=== PATIENT | male | born 1965 | race Hispanic/Latino ===

== ENCOUNTER 2017-07-09 09:54 | Emergency (ER) ==
[~2017-07-09] VITALS: Ht 185.4 cm; Wt 68.9 kg
[2017-07-09] MEDS ORDERED: SODIUM CHLORIDE 0.9% 1000ML 1,000 ML IV STA (10:10)
[2017-07-09 11:37] LABS: BILIRUBIN,URINE NEGATIVE (NEGATIVE); KETONES,URINE NEGATIVE (NEGATIVE); LEUKOCYTE ESTERASE ,URINE NEGATIVE (NEGATIVE); NITRITE,URINE NEGATIVE (NEGATIVE); PROTEIN,URINE DIPSTICK NEGATIVE (NEGATIVE); URINE UROBILINOGEN 0.2 mg/dL (0.2 - 1)
[2017-07-09 11:46] LABS: COLOR,URINE YELLOW (YELLOW)
[2017-07-09 12:15] LABS: CLARITY,URINE CLEAR (CLEAR); EPITHELIAL CELLS,URINE RARE /LPF
== END 2017-07-09 12:42 | disposition left against medical advice (07) ==
LOC: EDSEX 09:54 → ER 09:54
DX: E11.65 Type 2 diabetes mellitus with hyperglycemia (principal); M79.672 Pain in left foot; M79.671 Pain in right foot; G89.29 Other chronic pain
CPT/HCPCS: 81001; 99282

== ENCOUNTER 2018-05-01 20:56 | Emergency (ER) | payer SELFPAY ==
[~2018-05-01] VITALS: Ht 185.4 cm; Wt 68.9 kg
--- OUTSIDE RECORDS SUMMARY | 2018-05-01 20:59 | XMS REPORT ---
[facility] Address Unknown Phone Unavailable Care Team Providers Care Voucher Examiner Name Role Phone Unavailable Unavailable Problems This patient has no known problems. Allergies, Adverse Reactions, Alerts This patient has no known allergies or adverse reactions. Medications This patient has no known medications. Encounters Start Date/Time End Date/Time Encounter Type Admission Type Attending [facility] Care Department Encounter ID 2018-12-22 00:00:00 2018-12-22 00:00:00 Outpatient [facility] [id number] 2018-07-15 00:00:00 2018-07-15 00:00:00 Outpatient [facility] [id number] 2018-05-12 00:00:00 2018-05-12 00:00:00 Outpatient [facility] [id number] 2018-05-11 00:00:00 2018-05-11 00:00:00 Outpatient [facility] [id number] 2018-04-28 10:12:36 2018-04-28 10:12:36 Outpatient [facility] [id number] 2018-04-27 13:57:57 2018-04-27 13:57:57 Outpatient [facility] [id number] 2018-04-14 00:00:00 2018-04-14 00:00:00 Outpatient [facility] [id number] 2018-04-12 00:00:00 2018-04-12 00:00:00 Outpatient [facility] [id number] 2018-04-07 00:00:00 2018-04-07 00:00:00 Outpatient [facility] [id number] 2018-04-07 00:00:00 2018-04-07 00:00:00 Outpatient [facility] [id number] 2018-04-06 00:00:00 2018-04-06 00:00:00 Outpatient [facility] [id number] 2018-04-05 19:53:05 2018-04-05 19:53:05 Emergency [facility] [id number] 2018-04-02 10:01:51 2018-04-02 10:01:51 Outpatient [facility] [id number] 2018-04-02 00:00:00 2018-04-02 00:00:00 Outpatient [facility] [id number] 2018-03-25 08:02:16 2018-03-25 08:02:16 Outpatient [facility] [id number] 2018-03-17 00:00:00 2018-03-17 00:00:00 Outpatient [facility] [id number] 2018-03-15 15:11:01 2018-03-15 15:11:01 Outpatient [facility] [id number] 2018-03-15 14:41:38 2018-03-15 14:41:38 Outpatient [facility] [id number] 2018-03-15 13:25:32 2018-03-15 13:25:32 Outpatient [facility] [id number] 2018-03-15 00:00:00 2018-03-15 00:00:00 Outpatient [facility] [id number] 2018-03-15 00:00:00 2018-03-15 00:00:00 Outpatient [facility] [id number] 2018-03-15 00:00:00 2018-03-15 00:00:00 Outpatient [facility] [id number] 2018-03-03 00:00:00 2018-03-03 00:00:00 Outpatient [facility] [id number] 2018-02-19 07:31:55 2018-02-19 07:31:55 Outpatient [facility] [id number] 2018-02-19 00:00:00 2018-02-19 00:00:00 Outpatient [facility] [id number] 2018-02-16 00:00:00 2018-02-16 00:00:00 Outpatient [facility] [id number] 2018-02-15 00:00:00 2018-02-15 00:00:00 Outpatient [facility] [id number] 2018-02-11 09:59:54 2018-02-11 09:59:54 Outpatient [facility] [id number] 2018-02-11 00:00:00 2018-02-11 00:00:00 Outpatient [facility] [id number] 2018-02-10 10:32:46 2018-02-10 10:32:46 Outpatient [facility] [id number] 2018-02-10 00:00:00 2018-02-10 00:00:00 Outpatient [facility] [id number] 2018-02-09 14:09:26 2018-02-09 14:09:26 Outpatient [facility] [id number] 2018-02-08 09:05:32 2018-02-08 09:05:32 Outpatient [facility] [id number] 2018-02-08 00:00:00 2018-02-08 00:00:00 Outpatient [facility] [id number] 2018-02-03 00:00:00 2018-02-03 00:00:00 Outpatient [facility] [id number] 2018-01-11 00:00:00 2018-01-11 00:00:00 Outpatient [facility] [id number] 2017-12-30 12:42:48 2017-12-30 12:42:48 Outpatient [facility] [id number] 2017-12-30 00:00:00 2017-12-30 00:00:00 Outpatient [facility] [id number] 2017-12-22 00:00:00 2017-12-22 00:00:00 Outpatient [facility] [id number] 2017-12-17 11:36:57 2017-12-17 11:36:57 Outpatient [facility] [id number] 2017-12-17 11:29:28 2017-12-17 11:29:28 Outpatient [facility] [id number] 2017-12-17 09:31:06 2017-12-17 09:31:06 Outpatient [facility] [id number]
--- NOTE | 2018-05-01 22:10 | Diagnostic Imaging Report ---
KNEE LEFT THREE VIEWS Comparison: None Clinical history: Fall Findings: Moderate tricompartmental degenerative changes. No acute fracture or dislocation. Incidental superior patellar enthesophyte. Impression: No acute bony abnormality Signed by: Dr Darlene Saavedra MD on 05/01/2018 10:07 PM
[2018-05-01 23:27] VITALS: BP 138/91
== END 2018-05-01 23:30 | disposition home or self-care (01) ==
LOC: ER 20:56
DX: S80.02XA Contusion of left knee, initial encounter (principal); W18.2XXA Fall in (into) shower or empty bathtub, initial encounter; Y93.E1 Activity, personal bathing and showering; Y92.002 Bathroom of unspecified non-institutional (private) residence as the place of occurrence of the external cause; E11.40 Type 2 diabetes mellitus with diabetic neuropathy, unspecified; M79.7 Fibromyalgia
CPT/HCPCS: 99283

== ENCOUNTER 2018-09-16 10:38 | Inpatient (IN) | payer MEDICAID ==
[~2018-09-16] VITALS: Ht 185.4 cm; Wt 70.8 kg
[2018-09-16] MEDS ORDERED: LIDOCAINE HCL 1% 2 ML AMP INJ ONE (11:15)
[2018-09-16] MEDS ORDERED: SODIUM CHLORIDE 0.9% 1000ML 1,000 ML IV SCH ×2 (11:15)
--- NOTE | 2018-09-16 11:23 | NUR ---
rec'd pt in rm 3 from the [facility] for right foot pain/swelling. placed on the monitor. v.s.s. rating pain 10/10
[2018-09-16] MEDS ORDERED: MORPHINE SULFATE 5 MG/ML VIAL IV ONE (11:45)
[2018-09-16] MEDS: PIPER-TAZ 3.375 GM 50 ML IV SCH ×2 (11:55→16:30)
[2018-09-16] MEDS ORDERED: MORPHINE SULFATE INJ 4 MG/ML INJ 1ML IV ONE (12:00)
[2018-09-16 12:02] LABS: BASOPHILS # (AUTO) 0.1 (0.0-0.1); BASOPHILS % 0.6 % (0.0-1.0); EOSINOPHILS # (AUTO) 0.4 (0.0-0.4); EOSINOPHILS % 3.6 % (0.0-6.0); HEMATOCRIT 41.9 % (38.2-49.6); HEMOGLOBIN 13.4 g/dL (14.0-18.0); LYMPHOCYTES # (AUTO) 1.4 (1.0-3.2); LYMPHOCYTES % 12.5 % (18.0-39.1); MEAN CORPUSCULAR HEMOGLOBIN 27.1 pg (28-32); MEAN CORPUSCULAR VOLUME 84.6 fL (81-99); MONOCYTES # (AUTO) 1.1 (0.2-0.8); MONOCYTES % 10.3 % (4.4-11.3); NEUTROPHILS % 72.6 % (38.7-80.0); PLATELET COUNT 249 x10e3/uL (140-360); RED BLOOD COUNT 4.95 x10e6/uL (4.3-5.7); RED CELL DISTRIBUTION WIDTH 12.8 % (11.7-14.4)
[2018-09-16 12:08] LABS: CLARITY,URINE CLEAR (CLEAR); COLOR,URINE STRAW (YELLOW)
[2018-09-16 12:09] LABS: AMPHETAMINES SCREEN,URINE NEGATIVE (NEGATIVE); BENZODIAZEPINES SCREEN,URINE NEGATIVE (NEGATIVE); BILIRUBIN,URINE NEGATIVE (NEGATIVE); KETONES,URINE NEGATIVE (NEGATIVE); LEUKOCYTE ESTERASE ,URINE NEGATIVE (NEGATIVE); NITRITE,URINE NEGATIVE (NEGATIVE); PHENCYCLIDINE SCREEN,URINE NEGATIVE (NEGATIVE); PROTEIN,URINE DIPSTICK NEGATIVE (NEGATIVE); URINE UROBILINOGEN 0.2 mg/dL (0.2 - 1)
[2018-09-16 12:12] LABS: INR 0.84
[2018-09-16 12:13] LABS: PARTIAL THROMBOPLASTIN TIME 28.6 seconds (23.8-35.5)
--- NOTE | 2018-09-16 12:16 | Diagnostic Imaging Report ---
Exam: Right foot radiographs-3 views Clinical History: Right second toe swelling, erythema, query osteomyelitis. Comparison: None. Findings: No evidence of acute fracture or malalignment. There is soft tissue edema within the second toe with soft tissue irregularity, possibly laceration, along the distal aspect. No radiographic evidence of underlying osteomyelitis. There is a hallux valgus deformity. There are mild degenerative changes of the first metatarsophalangeal joint. There is a plantar calcaneal spur. Impression: Right second toe edema without radiographic evidence of osteomyelitis. Soft tissue irregularity in the distal second toe may represent laceration, and can be correlated on exam. Signed by: Dr. Kristopher Berry MD on 09/16/2018 12:12 PM
[2018-09-16 12:21] LABS: EPITHELIAL CELLS,URINE FEW /LPF; WBC,URINE (MAN) 0-5 /HPF (0-5)
[2018-09-16 12:23] LABS: ALANINE AMINOTRANSFERASE 28 IU/L (0-55); ALBUMIN 3.4 g/dL (3.5-5.0); ALBUMIN/GLOBULIN RATIO 1.1 (0.8-2.0); ALKALINE PHOSPHATASE 160 IU/L (40-150); ANION GAP 12.6 mmol/L (8-16); BLOOD UREA NITROGEN 10 mg/dL (7-26); BUN/CREATININE RATIO 10 (6-25); CALCIUM 8.8 mg/dL (8.4-10.2); CARBON DIOXIDE 29 mmol/L (22-29); CHLORIDE 90 mmol/L (98-107); CREATININE, SERUM 1.03 mg/dL (0.72-1.25); EST GLOMERULAR FILTRATION RATE > 60 ML/MIN (60-); POTASSIUM 4.6 mmol/L (3.5-5.1); SODIUM 127 mmol/L (136-145)
[2018-09-16 12:31] LABS: GLUCOSE 708 mg/dL (74-118)
[2018-09-16] MEDS ORDERED: INSULIN REGULAR, HUMAN 100 UNIT/1 ML 3ML VIAL SQ NR (12:45)
[2018-09-16] MEDS ORDERED: INSULIN REGULAR, HUMAN 100 UNIT/1 ML 3ML VIAL IV NR (12:45)
--- NOTE | 2018-09-16 13:35 | NUR ---
dr. lexa quintana in to see pt
[2018-09-16] MEDS ORDERED: HUMALOG100 UNIT/1 SQ (14:04)
[2018-09-16] MEDS ORDERED: GABAPENTIN600 MG (14:04)
[2018-09-16] MEDS ORDERED: ULTRAM 50MG50 MG (14:04)
[2018-09-16] MEDS ORDERED: LEVEMIR100 UNIT/1 SQ (14:04)
[2018-09-16] MEDS ORDERED: TYLENOL # 31 EA (14:04)
[2018-09-16] MEDS ORDERED: DEXTROSE 50% SYRINGE 50 ML IV PRN (14:15)
[2018-09-16] MEDS ORDERED: MORPHINE SULFATE 2 MG/ML SYR 1ML IV PRN (14:15)
[2018-09-16] MEDS: VANCOMYCIN 1GM/NS 250 ML 250 ML IV SCH (14:43)
[2018-09-16 15:39] VITALS: BP 123/75
--- NOTE | 2018-09-16 16:00 | NUR ---
Received pt from ER at this time. Pt is axo4 and able to verbalize needs. Pt denies any pain at this time. no C/O of pain at thia time, pt able to make needs known, pt oriented to room and call light, bed in lowest position. bed rails up x2.
[2018-09-16] MEDS: SODIUM CHLORIDE 0.9% 1000ML 1,000 ML IV SCH (16:35)
[2018-09-16] MEDS: INSULIN LISPRO 100 UNIT/1 ML 3ML VIAL SQ SCH ×2 (16:35→21:00)
[2018-09-16] MEDS: MORPHINE SULFATE INJ 4 MG/ML INJ 1ML IV PRN (17:58)
[2018-09-16] MEDS: ONDANSETRON HCL INJ 2MG/ML 2ML 2 MG/ML VIAL IV PRN (17:58)
[2018-09-16 18:23] VITALS: BP 123/75
[2018-09-16] MEDS ORDERED: PIPER-TAZ 3.375 GM 50 ML IV SCH (19:00)
[2018-09-16 19:28] VITALS: BP 113/68
--- NOTE | 2018-09-16 19:47 | NUR ---
report given to oncoming nurse, for continued care
--- NOTE | 2018-09-16 19:54 | NUR ---
RECEIVED PT IN BED AOX3 .PT C/O DIARRHEA .RESPIRATIONS EVEN AND UNLABORED .CALL LIGHT WITH IN REACH .CONTINUE TO MONITOR
[2018-09-16 23:27] VITALS: BP 113/68
[2018-09-17] VITALS (7 sets, daily range): BP systolic 129–141; BP diastolic 75–85
[2018-09-17] MEDS: VANCOMYCIN 1GM/NS 250 ML 250 ML IV SCH ×2 (02:30→15:30)
[2018-09-17] MEDS: PIPER-TAZ 3.375 GM 50 ML IV SCH ×4 (05:45→18:37)
[2018-09-17] MEDS: SODIUM CHLORIDE 0.9% 1000ML 1,000 ML IV SCH ×3 (05:46→15:30)
--- NOTE | 2018-09-17 06:09 | NUR ---
PT RESTED DURING THE NIGHT AND DENIES PAIN.CALL LIGHT WITH IN REACH .CONTINUE TO MONITOR
--- NOTE | 2018-09-17 06:09 | NUR ---
PT RESTED DURING THE NIGHT AND DENIES PAIN.CALL LIGHT WITH IN REACH .CONTINUE TO MONITOR
[2018-09-17 06:17] LABS: BASOPHILS # (AUTO) 0.1 (0.0-0.1); BASOPHILS % 0.6 % (0.0-1.0); EOSINOPHILS # (AUTO) 0.4 (0.0-0.4); EOSINOPHILS % 4.9 % (0.0-6.0); HEMATOCRIT 39.8 % (38.2-49.6); HEMOGLOBIN 12.8 g/dL (14.0-18.0); LYMPHOCYTES # (AUTO) 1.8 (1.0-3.2); LYMPHOCYTES % 22.6 % (18.0-39.1); MEAN CORPUSCULAR HEMOGLOBIN 27.2 pg (28-32); MEAN CORPUSCULAR HGB CONC 32.2 g/dL (31-35); MEAN CORPUSCULAR VOLUME 84.5 fL (81-99); MONOCYTES # (AUTO) 0.7 (0.2-0.8); MONOCYTES % 9.4 % (4.4-11.3); NEUTROPHILS # (AUTO) 4.8 (2.1-6.9); PLATELET COUNT 233 x10e3/uL (140-360); RED BLOOD COUNT 4.71 x10e6/uL (4.3-5.7)
[2018-09-17 06:39] LABS: BLOOD UREA NITROGEN 8 mg/dL (7-26); BUN/CREATININE RATIO 10 (6-25); CALCIUM 8.4 mg/dL (8.4-10.2); CARBON DIOXIDE 28 mmol/L (22-29); CHLORIDE 98 mmol/L (98-107); CREATININE, SERUM 0.84 mg/dL (0.72-1.25); EST GLOMERULAR FILTRATION RATE > 60 ML/MIN (60-); GLUCOSE 370 mg/dL (74-118); SODIUM 133 mmol/L (136-145)
[2018-09-17] MEDS: ONDANSETRON HCL INJ 2MG/ML 2ML 2 MG/ML VIAL IV PRN (06:50)
[2018-09-17] MEDS: MORPHINE SULFATE INJ 4 MG/ML INJ 1ML IV PRN ×2 (06:50→20:00)
--- NOTE | 2018-09-17 07:32 | NUR ---
REPORT GIVEN TO THE ONCOMING NURSE
[2018-09-17] MEDS: INSULIN LISPRO 100 UNIT/1 ML 3ML VIAL SQ SCH ×4 (08:15→21:13)
--- NOTE | 2018-09-17 08:15 | NUR ---
Pt had blood sugar value of 330 this morning, per sliding scale pt is to receive 16units of insulin. Pt refused sliding scale orders and requested for just 6units of insulin. Pt stated he does not use sliding scale at home. 6units of Humalog administered to pt this morning.
--- NOTE | 2018-09-17 12:40 | Diagnostic Imaging Report ---
TECHNIQUE: Magnetic resonance imaging of the RIGHT foot (forefoot) was performed WITHOUT injected contrast. The exam is optimized to evaluate the second toe. HISTORY: Second toe, cellulitis, necrotic COMPARISON: Right foot radiographs September 16, 2018. DISCUSSION: Bone: The cortex of the tuft of the second distal phalanx is mildly indistinct. Mild adjacent bone marrow edema and subtle decreased fatty marrow signal of the tuft. No acute fracture. Joints: Severe hallux valgus deformity. No effusion. Soft Tissues: Regional soft tissue edema, most notably the second toe. IMPRESSION: 1. High probability of osteomyelitis involving the tuft of the second distal phalanx. 2. No soft tissue abscess. Signed by: Dr. Bruce Florentino D.O., M.M.M. on 09/17/2018 12:37 PM
[2018-09-17] MEDS ORDERED: BUPIVACAINE HCL 0.5% INJ 30 ML VIAL INJ ONE (12:48)
[2018-09-17] MEDS ORDERED: MUPIROCIN 2% OINT 22 GM TUBE ONE (12:48)
[2018-09-17] MEDS ORDERED: BACITRACIN 50,000 UNIT VIAL ONE (12:48)
[2018-09-17] MEDS ORDERED: DIPHENHYDRAMINE HCL INJ 50 MG/ML VIAL ONE (13:25)
--- NOTE | 2018-09-17 13:26 | NUR ---
GAVE PACKET OF INFORMATION WITH [employer]ITY [employer] FOR ASSISTANCE WITH LOW TO NO INCOME TO PATIENT. RESOURCES THAT PATIENT MAY BE ABLE TO FOLLOW UP UPON DISCHARGE. PT EDUCATED ON EACH RESOURCE AND UNDERSTANDING HOW TO FOLLOW UP TO SEE IF QUALIFIED FOR EACH RESOURCE.
[2018-09-17] MEDS ORDERED: FENTANYL CITRATE/PF 100MCG/2 ML INJ ONE ×2 (13:43→14:30)
--- NOTE | 2018-09-17 14:07 | NUR ---
pt arrived back from surgery of R 2nd toe amputation. No c/o pain at this time, dressing over site.
[2018-09-17] MEDS ORDERED: MIDAZOLAM HCL 2 MG/2 ML VIAL ONE (14:30)
[2018-09-17 14:32] LABS: FREE T4 (FREE THYROXINE) 1.06 ng/dL (0.9-1.8); THYROID STIMULATING HORMONE 1.267 uIU/mL (0.350-4.940)
--- NOTE | 2018-09-17 15:59 | NUR ---
WOUND CARE CONSULTATION - INITIAL EVAL Patient admitted from home to ER for foot swelling, increased pain of foot with nail loss. Per ER Note, 2nd toe dorsal aspect streaking redness to lower leg. DX: Cellulitis of Right Foot with DFU to 2nd toe. X-ray- Right Foot - No Osteo, No FX Wound Culture Done During Surgery Today- Results Pending Patient Visit: - Dr. Gray/ Dr. Carson managing care of foot wound. - Noted S/P Amputation of 2nd Digit Today by Dr Gray.09/17/18 - Discussed treatment plan with Dr. Gray. DPM Dressing to remain in place until Thursday. - Surgical dressing in place. CDI. - Phil Score 19 - Alternating Pressure Air Mattress in Place - Conservative PUP Active - No Pressure Ulcers Noted. - Unable to assess wound at this time. Will follow back upon request. Thank you for consulting with Wound Care. Addendum: 09/17/18 at 1609 by Jim Walsh RN Amended: Links added.
--- NOTE | 2018-09-17 17:31 | Consultation ---
DATE OF CONSULTATION: 09/17/2018 REASON FOR CONSULTATION: Right foot wound. HISTORY OF PRESENTING ILLNESS: This is a 53-year-old male with past medical history of type 2 diabetes, peripheral neuropathy, hypertension, anxiety, depression, who was admitted through the emergency room yesterday for a worsening infection to his right 2nd toe. The patient relates that his nail fell off his right 2nd toe and there was increased redness, swelling, drainage from the area as well as swelling to the ankle and redness going up his leg. The patient does relate to moderate pain to the area. He relates that he is uninsured and does not have his blood sugars under control, he does not take his diabetic medications regularly. Currently denies nausea, vomiting, fever, chills, chest pain, or shortness of breath. PAST MEDICAL HISTORY: 1. Type 2 diabetes with peripheral neuropathy. 2. Hypertension. 3. Anxiety. 4. Depression. 5. Fibromyalgia. MEDICATIONS: Per the chart. ALLERGIES: NO KNOWN DRUG ALLERGIES. PAST SURGICAL HISTORY: Right wrist surgery, right knee surgery. SOCIAL HISTORY: The patient currently denies smoking, however, does chew tobacco. Occasional alcohol. Denies any illicit drug usage. REVIEW OF SYSTEMS: The patient currently denies nausea, vomiting, fever, chills, chest pain, or shortness of breath. PHYSICAL EXAMINATION: GENERAL: Alert and oriented x3, in no apparent distress. VITAL SIGNS: Today temperature is 96.3, heart rate 98, respiratory rate 18, blood pressure 132/83, pulse ox is 96% on room air. PROBLEM FOCUSED LOWER EXTREMITY PHYSICAL EXAM: VASCULAR: Dorsalis pedis and posterior tibial pulses are faintly palpable. Capillary refill time is less than 3 seconds to all digits aside from the right 2nd digit. Erythema, edema, and warmth is noted from the right distal 2nd digit to the level of the metatarsophalangeal joint. There is ascending lymphangitis to the level of the ankle and midcalf. Foot is warm to the touch extending to the level of the ankle. NEUROLOGICAL: Sensation is absent to light touch bilateral. MUSCULOSKELETAL: Pain on palpation to the right 2nd digit. DERMATOLOGICAL: Right 2nd digit is erythematous, edematous, and warm greater than 2 cm to the level of the metatarsophalangeal joint with ascending lymphangitis at the level of the midcalf. The nail had been avulsed and there is a draining ulceration to the distal tip of the 2nd digit with bone exposed. LABS: White blood cell count is 7.8, hemoglobin 12.8, hematocrit 39.8, platelet count is 233. Sodium 133, potassium 4.0, chloride 98, CO2 of 28, BUN 8, creatinine 0.84, glucose 370. Urine drug screen is negative. X-RAYS: Questionable osteolytic changes to the distal aspect of the distal phalanx of the right 2nd digit. ASSESSMENT: 1. Right 2nd digit ulcer with probable osteomyelitis. 2. Right foot cellulitis. 3. Right foot ascending lymphangitis. 4. Type 2 diabetes with peripheral neuropathy. 5. Hypertension. 6. Anxiety. 7. Depression. 8. Fibromyalgia. PLAN: The patient was seen and evaluated. Discussed condition, x-ray findings, and clinical findings with the patient in detail. Discussed with the patient the right 2nd digit is approximately one and half to two times the digit next to it with moderate amount of erythema and edema extending to the level of the metatarsophalangeal joint as well as purulent drainage with bone exposure. The patient does have clinical osteomyelitis. I will order a stat MRI with a stat read to evaluate for osteomyelitis. Discussed with the patient need for right 2nd digit amputation. The patient agrees. The patient has been n.p.o. since yesterday, has not had any breakfast, we will continue n.p.o. status. We will discuss with the OR about possible surgical procedure today. Continue IV vancomycin and Zosyn until intraoperative cultures are received. The Podiatry service will continue to monitor as an inpatient. ALONDRA Carter/YVROSE /[id number]
[2018-09-17] MEDS ORDERED: PROPOFOL IV EMULSION 10 MG/ML 20 ML VIAL ONE (17:50)
[2018-09-17] MEDS ORDERED: LIDOCAINE HCL 2% LOCAL INJ 5 ML SDV VIAL INJ ONE (17:50)
--- NOTE | 2018-09-17 19:30 | NUR ---
Bedside rounds completed with morning nurse. Pt alert to name. Lying in bed 45 degrees. Pt c/o 9/10 throbbing pain to right foot. Drsg to right foot dry and intact, elevated right foot. Informed Pt will receive pain medication as ordered. Call ahuja within reach. Bed low and locked. Will continue to monitor.
--- NOTE | 2018-09-17 20:30 | NUR ---
Admin prn morphine for 9/10 throbbing pain to right foot.
[2018-09-17] MEDS ORDERED: INSULIN GLARGINE 100 UNITS/ML VIAL SQ SCH (21:00)
--- NOTE | 2018-09-17 21:07 | Consultation ---
DATE OF CONSULTATION: 09/17/2018 Endocrine Consultation This is the patient of Dr. Willis. Thank you very much for referring this patient. HISTORY OF PRESENT ILLNESS: This 53-year-old white gentleman, who is referred to me for evaluation of uncontrolled diabetes mellitus. 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 He came to the hospital because of the cellulitis of the right foot and osteomyelitis of the second toe. The patient takes a combination of insulin at home, 20 of Lantus at bedtime and 7 of Humalog with each meal. At the time of his admission, his blood sugar was 700. His anion gap was within the range. The patient chews tobacco. He also has history of mild hypertension. PHYSICAL EXAMINATION: GENERAL: Today, the patient is alert, awake, little bit apprehensive. Clinically, he is euthyroid. VITAL SIGNS: His heart rate is around 78, blood pressure 130/80 mmHg. HEENT: Essentially unremarkable. Thyroid is palpable. CHEST: Bilateral vesicular breathing. EXTREMITIES: The patient has evidence of diabetic sensory motor neuropathy in both lower extremities and cellulitis of the right foot. CLINICAL IMPRESSION: Diabetes mellitus type 1 uncontrolled with complications, cellulitis of the right foot with osteomyelitis of the 2nd toe. PLAN: The plan at this time is to put him on the combination of the Humalog and the Lantus insulin 3 times a day in the sliding scale. We will also do hemoglobin A1c and thyroid function test. Thanks for referring this patient. I will be following this patient with you. MD JEANINE Vaughan/ELPIDIOL /[id number]
--- NOTE | 2018-09-17 21:27 | NUR ---
Spoke with Dr. Lizama regarding continuing home medication gabapentin for neuropathy. Pt c/o tingling to bilateral feet. Ordered to continue home dosage gabapentin 600mg PO every 8 hours.
[2018-09-17] MEDS ORDERED: NON-FORMULARY MEDICATION (Gabapentin 600 MG) SCH (22:00)
--- NOTE | 2018-09-17 22:47 | Operative Report ---
DATE OF PROCEDURE: 09/17/2018 SURGEON: Cole Gray DPM PREOPERATIVE DIAGNOSIS: Right 2nd digit osteomyelitis. POSTOPERATIVE DIAGNOSIS: Right 2nd digit osteomyelitis. PLANNED PROCEDURE: Right 2nd digit amputation. ANESTHESIA: General with a postoperative block consisting of 10 mL of 0.5% Marcaine plain. HEMOSTASIS: Pneumatic ankle tourniquet set at 250 mmHg for a total time of approximately 10 minutes. MATERIALS: 3-0 nylon. ESTIMATED BLOOD LOSS: Less than 10 mL. PATHOLOGY: Anaerobic and aerobic cultures as well as gross specimen, right 2nd digit. DESCRIPTION OF PROCEDURE: The patient was seen in the preoperative waiting room, where the correct procedure and side was identified. The patient was brought to the operating room, placed on the operating table in the supine position. General anesthesia was initiated. At this time, a well-padded pneumatic tourniquet was placed about the patient's right ankle. The right foot, ankle, and leg were then scrubbed, prepped, and draped in the usual aseptic manner. The right foot, ankle and leg were exsanguinated with gravity and the pneumatic ankle tourniquet was inflated to 250 mmHg for a total time of approximately 10 minutes. Attention was directed to the distal aspect of the patient's right 2nd digit, where the nail had previously been avulsed and there was purulent drainage with bone exposed. Erythema and edema were extending down to the level of the 2nd metatarsophalangeal joint. The decision was made to proceed with the right 2nd digit amputation. Utilizing a #15 blade, an incision was made to the distal tip of the patient's 2nd digit to allow for drainage of the abscess. Wound cultures were taken. Next, utilizing a clean #15 blade, two large converging semi-elliptical incisions were made over the metatarsophalangeal joint extending dorsally and plantarly encompassing the joint. The incision was deepened to the level of bone. At this point, a 2nd metatarsophalangeal joint was easily identified. The digit was grasped distally with a towel clamp and disarticulated from the foot and passed off to the back table to be sent for gross specimen. Next, the wound was flushed copiously with sterile saline mixed with bacitracin. The incision site was then prepped for closure by removing all dog-ears and debulking fat. The incision site was then reapproximated utilizing simple interrupted sutures with 3-0 nylon. The incision site was then dressed with Adaptic, Betadine-soaked 4x4s, Kerlix, Desean wrap, and a postop shoe. The patient tolerated the procedure and anesthesia well. The patient was transferred to the postop recovery room with vital signs stable and vascular status intact. The patient was monitored there for a short period of time before being readmitted to the floor for postoperative monitoring, pain control, and IV antibiotics. The plan will be to have the patient for 1-2 days on IV antibiotics until cultures received and may be discharged on p.o. antibiotics. The Podiatry Service will continue to monitor as an inpatient. ALONDRA Carter/MODL /[id number]
[2018-09-17] MEDS: GABAPENTIN 300 MG CAP PO SCH (22:49)
[2018-09-18] VITALS (8 sets, daily range): BP systolic 110–129; BP diastolic 72–81
[2018-09-18] MEDS: PIPER-TAZ 3.375 GM 50 ML IV SCH ×3 (00:26→13:44)
[2018-09-18] MEDS: MORPHINE SULFATE INJ 4 MG/ML INJ 1ML IV PRN ×5 (00:40→23:10)
[2018-09-18] MEDS: VANCOMYCIN 1GM/NS 250 ML 250 ML IV SCH ×2 (03:30→18:22)
[2018-09-18] MEDS: SODIUM CHLORIDE 0.9% 1000ML 1,000 ML IV SCH ×2 (04:04→08:38)
[2018-09-18] MEDS: GABAPENTIN 300 MG CAP PO SCH ×3 (05:08→22:00)
[2018-09-18] MEDS: INSULIN LISPRO 100 UNIT/1 ML 3ML VIAL SQ SCH ×7 (07:30→22:00)
[2018-09-18] MEDS: ONDANSETRON HCL INJ 2MG/ML 2ML 2 MG/ML VIAL IV PRN ×2 (10:17→18:45)
--- NOTE | 2018-09-18 15:55 | NUR ---
Nurse informed physician regarding pt's blood sugar and that pt does not want to follow a sliding scale or be administered insulin based off on what physician has ordered. Physician did not address matter, informed nurse to just do what the pt is asking and document.
--- NOTE | 2018-09-18 19:00 | NUR ---
Rounds completed with morning nurse. Pt alert to name, sitting in w/c. Denies pain at this time, medicated at 1830. Drsg to right foot dry and intact. Family at bedside. Call ahuja within reach. Will continue to monitor.
[2018-09-18] MEDS ORDERED: INSULIN GLARGINE 100 UNITS/ML VIAL SQ SCH (21:00)
[2018-09-19 00:15] VITALS: BP 129/80
[2018-09-19] MEDS: PIPER-TAZ 3.375 GM 50 ML IV SCH ×4 (00:23→11:55)
[2018-09-19] MEDS: VANCOMYCIN 1GM/NS 250 ML 250 ML IV SCH (02:53)
[2018-09-19] MEDS: MORPHINE SULFATE INJ 4 MG/ML INJ 1ML IV PRN ×2 (03:00→11:03)
[2018-09-19 04:43] VITALS: BP 118/55
[2018-09-19 04:46] VITALS: BP 116/60
[2018-09-19 05:56] LABS: BASOPHILS # (AUTO) 0.1 (0.0-0.1); BASOPHILS % 0.9 % (0.0-1.0); EOSINOPHILS # (AUTO) 0.5 (0.0-0.4); EOSINOPHILS % 9.1 % (0.0-6.0); HEMATOCRIT 41.2 % (38.2-49.6); HEMOGLOBIN 12.7 g/dL (14.0-18.0); LYMPHOCYTES # (AUTO) 1.9 (1.0-3.2); LYMPHOCYTES % 32.9 % (18.0-39.1); MEAN CORPUSCULAR HEMOGLOBIN 26.4 pg (28-32); MEAN CORPUSCULAR HGB CONC 30.8 g/dL (31-35); MEAN CORPUSCULAR VOLUME 85.7 fL (81-99); MONOCYTES # (AUTO) 0.4 (0.2-0.8); MONOCYTES % 7.7 % (4.4-11.3); NEUTROPHILS # (AUTO) 2.8 (2.1-6.9); PLATELET COUNT 297 x10e3/uL (140-360); RED BLOOD COUNT 4.81 x10e6/uL (4.3-5.7); RED CELL DISTRIBUTION WIDTH 13.1 % (11.7-14.4)
[2018-09-19 06:19] LABS: ALANINE AMINOTRANSFERASE 20 IU/L (0-55); ALBUMIN 2.7 g/dL (3.5-5.0); ALBUMIN/GLOBULIN RATIO 0.8 (0.8-2.0); ALKALINE PHOSPHATASE 102 IU/L (40-150); BLOOD UREA NITROGEN 7 mg/dL (7-26); BUN/CREATININE RATIO 8 (6-25); CALCIUM 8.4 mg/dL (8.4-10.2); CARBON DIOXIDE 29 mmol/L (22-29); CHLORIDE 99 mmol/L (98-107); CREATININE, SERUM 0.84 mg/dL (0.72-1.25); EST GLOMERULAR FILTRATION RATE > 60 ML/MIN (60-); GLUCOSE 355 mg/dL (74-118); SODIUM 135 mmol/L (136-145)
[2018-09-19] MEDS: GABAPENTIN 300 MG CAP PO SCH (06:23)
[2018-09-19] MEDS: INSULIN LISPRO 100 UNIT/1 ML 3ML VIAL SQ SCH ×2 (07:30→09:21)
[2018-09-19 08:00] VITALS: BP 125/75
[2018-09-19 09:14] VITALS: BP 125/75
[2018-09-19] MEDS: ONDANSETRON HCL INJ 2MG/ML 2ML 2 MG/ML VIAL IV PRN (11:03)
[2018-09-19 12:00] VITALS: BP 103/68
[2018-09-19] MEDS ORDERED: CIPRO500 MG PO (13:21)
--- NOTE | 2018-09-19 16:05 | NUR ---
Visit made by the Spiritual Care Department Pastoral Visitor, Risa Hicks. PV provided pastoral presence, hospitality, and supportive listening. Pastoral Visitor informed pt/family of the scope of [employer] and availability. TOLU STEWARD Medication Aide Spiritual Care Department O: [phone] Pager: [phone] ([phone] number calling from)
--- NOTE | 2018-09-20 11:40 | Discharge Summary ---
ADMIT DIAGNOSES: 1. Right diabetic foot ulcer (2nd digit) with probable osteomyelitis. 2. Right foot cellulitis. 3. Type 2 diabetes mellitus with peripheral neuropathy. 4. Hypertensive heart disease. DISCHARGE DIAGNOSES: 1. Status post right 2nd toe amputation. 2. Right 2nd toe osteomyelitis. 3. Right foot cellulitis, resolving. 4. Staphylococcus aureus infected right diabetic foot wound. 5. Type 2 diabetes mellitus with diabetic peripheral neuropathy. 6. Hypertensive heart disease. HOSPITAL COURSE: This is a 53-year-old white man, who was initially admitted to [facility] with a diagnosis of right-sided diabetic foot ulcer, specifically right 2nd toe. On admission, it was felt that he most likely had osteomyelitis. He is also found to have surrounding right foot cellulitis with ascending lymphangitis. The patient improved clinically with intravenous Zosyn and vancomycin, which he tolerated quite well. The patient was seen by orthopedic surgeon, namely, Dr. Cole Gray, who performed successful right 2nd toe amputation because of the right 2nd digit osteomyelitis. During this hospitalization, he underwent a right foot MRI that revealed a high probability osteomyelitis of the right 2nd distal toe. The patient's hospitalization was unremarkable. During this hospitalization, wound cultures taken during the surgery revealed presence of Staphylococcus aureus and Streptococcus species. The sensitivities to the Staphylococcus aureus were available on discharge. The strain of Staphylococcus aureus was found to be sensitive to oral ciprofloxacin. The minimal inhibitory concentration was less than 1 with ciprofloxacin. PATIENT'S CONDITION ON DISCHARGE: Stable. DISCHARGE MEDICATIONS: 1. Ciprofloxacin 500 mg p.o. b.i.d. for 14 days. 2. Gabapentin 600 mg t.i.d. 3. Tylenol No. 3 one every 12 hours p.r.n. pain. 4. Levemir insulin 20 units subcutaneously twice a day. 5. Humalog insulin 7 units subcutaneously t.i.d. with meals. 6. Tramadol 50 mg every 8 hours p.r.n. moderate pain. FOLLOWUP INSTRUCTIONS: 1. The patient is instructed to follow up with Dr. Cole Gray, his grants assistant on Monday, September 24, 2018. 2. The patient is instructed to follow up with his primary care physician at [facility] within 7 to 10 days. Aram E Orahood, MD MEO/ELPIDIOL /[id number] cc: Cole Gray DPM
== END 2018-09-19 14:30 | disposition home or self-care (01) | DRG 617 ==
LOC: ER 10:38 → ERHOLD 14:54 → MED/SURG3 15:11
PROC: 0Y6R0Z3 Detachment at Right 2nd Toe, Low, Open Approach (ICD-10-PCS; principal; 2018-09-17 12:48)
DX: E11.69 Type 2 diabetes mellitus with other specified complication (principal); L03.115 Cellulitis of right lower limb; M86.8X7 Other osteomyelitis, ankle and foot; E11.621 Type 2 diabetes mellitus with foot ulcer; L97.514 Non-pressure chronic ulcer of other part of right foot with necrosis of bone; Z79.4 Long term (current) use of insulin; E11.40 Type 2 diabetes mellitus with diabetic neuropathy, unspecified; B95.62 Methicillin resistant Staphylococcus aureus infection as the cause of diseases classified elsewhere; F41.9 Anxiety disorder, unspecified; F32.9 Major depressive disorder, single episode, unspecified; Z59.8 Other problems related to housing and economic circumstances; M79.7 Fibromyalgia; E11.42 Type 2 diabetes mellitus with diabetic polyneuropathy; E11.65 Type 2 diabetes mellitus with hyperglycemia; F17.220 Nicotine dependence, chewing tobacco, uncomplicated
CPT/HCPCS: 36415; 80048; 80053; 80202; 80307; 81001; 82948; 83036; 83605; 83735; 84439; 84443; 85025; 85610; 85730; 87040; 87071; 87075; 87186; 87205; 88304; 88311; 99284; J1200; J1815; J2001; J2250; J2270; J2405; J2543; J3370; J7030

== ENCOUNTER 2018-11-07 12:44 | Emergency (ER) | payer SELFPAY ==
[~2018-11-07] VITALS: Ht 185.4 cm; Wt 70.8 kg
[~2018-11-07 12:44] MED LIST: CIPRO500 MG PO; GABAPENTIN600 MG; HUMALOG100 UNIT/1 SQ; LEVEMIR100 UNIT/1 SQ; TYLENOL # 31 EA; ULTRAM 50MG50 MG
== END 2018-11-07 13:17 | disposition home or self-care (01) ==
LOC: ER 12:44
DX: R21 Rash and other nonspecific skin eruption (principal); L50.1 Idiopathic urticaria; I10 Essential (primary) hypertension; E11.9 Type 2 diabetes mellitus without complications; F41.9 Anxiety disorder, unspecified; F32.9 Major depressive disorder, single episode, unspecified
CPT/HCPCS: 99283

== ENCOUNTER 2019-06-15 18:32 | Emergency (ER) | payer MEDICARE, OTHER ==
[~2019-06-15] VITALS: Ht 185.4 cm; Wt 70.8 kg
[2019-06-15] MEDS ORDERED: PIPER-TAZ 3.375 GM 50 ML IV ONE (18:51)
[2019-06-15] MEDS ORDERED: SODIUM CHLORIDE 0.9% 1000ML 1,000 ML IV STA (18:51)
[2019-06-15] MEDS ORDERED: ACETAMINOPHEN 325 MG TAB PO ONE (19:00)
[2019-06-15 19:17] LABS: BASOPHILS # (AUTO) 0.1 (0.0-0.1); BASOPHILS % 0.6 % (0.0-1.0); EOSINOPHILS # (AUTO) 0.5 (0.0-0.4); EOSINOPHILS % 5.7 % (0.0-6.0); HEMATOCRIT 42.5 % (38.2-49.6); HEMOGLOBIN 13.6 g/dL (14.0-18.0); LYMPHOCYTES # (AUTO) 1.8 (1.0-3.2); LYMPHOCYTES % 22.2 % (18.0-39.1); MEAN CORPUSCULAR HEMOGLOBIN 27.1 pg (28-32); MEAN CORPUSCULAR VOLUME 84.8 fL (81-99); MONOCYTES # (AUTO) 0.6 (0.2-0.8); MONOCYTES % 7.7 % (4.4-11.3); NEUTROPHILS # (AUTO) 5.2 (2.1-6.9); NEUTROPHILS % 63.6 % (38.7-80.0); PLATELET COUNT 234 x10e3/uL (140-360); RED BLOOD COUNT 5.01 x10e6/uL (4.3-5.7); RED CELL DISTRIBUTION WIDTH 12.8 % (11.7-14.4)
[2019-06-15 19:38] LABS: ALBUMIN 3.6 g/dL (3.5-5.0); ALBUMIN/GLOBULIN RATIO 1.3 (0.8-2.0); ANION GAP 15.5 mmol/L (8-16); CALCIUM 9.4 mg/dL (8.4-10.2); CREATININE, SERUM 1.3 mg/dL (0.72-1.25); POTASSIUM 3.5 mmol/L (3.5-5.1)
[2019-06-15] MEDS ORDERED: VANCOMYCIN 1GM/NS 250 ML 250 ML IV ONE (20:00)
--- NOTE | 2019-06-15 20:06 | Diagnostic Imaging Report ---
Exam: Left elbow, 3 views History: Swollen elbow, left elbow pain, no history of trauma Comparison: None. Findings: There is normal bone mineralization. No acute, displaced fracture or dislocation. Moderate degenerative changes in the elbow joint, with joint space narrowing and osteophytosis. No lytic or blastic lesions. No abnormal soft tissue calcification or soft tissue defect. No soft tissue swelling. Impression: 1. No acute abnormalities. Moderate degenerative changes in the elbow joint. Signed by: Dr. Giles Mccoy M.D. on 06/15/2019 8:02 PM
[2019-06-15] MEDS ORDERED: INSULIN REGULAR, HUMAN 100 UNIT/1 ML 3ML VIAL SQ ONE (20:15)
[2019-06-15 21:02] VITALS: BP 119/75
--- OUTSIDE RECORDS SUMMARY | 2019-06-24 11:09 | XMS REPORT | Continuity of Care Document ---
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 Medications No medication information available. Social History No social history. Hospital Discharge Instructions No hospital discharge instructions. Plan of Care Discharge Date 02/11/19 Disposition HOME/SELF CARE Prescriptions See Medications Section Functional Status No functional status results. Allergies, Adverse Reactions, Alerts No allergy information available. Immunizations No Known History of Immunizations. Vital Signs No Known Vital Signs Results. Results Laboratory Results Test Name Result Units Flags Reference Collection Date/Time Result Date/Time Comments Glucose (Fingerstick) 209 mg/dL H 65-99 02/11/19 3:27am 02/11/19 3:30am Uric Acid 2.6 mg/dL L 4.8-8.7 02/11/19 0:00am 02/11/19 2:13am Urine Color YELLOW YELLOW 02/10/19 11:12pm 02/10/19 11:26pm Urine Appearance CLEAR CLEAR 02/10/19 11:12pm 02/10/19 11:26pm Urine Glucose >=1000 mg/dL A NEGATIVE 02/10/19 11:12pm 02/10/19 11:26pm Urine Bilirubin NEGATIVE NEGATIVE 02/10/19 11:12pm 02/10/19 11:26pm Urine Ketones NEGATIVE NEGATIVE 02/10/19 11:12pm 02/10/19 11:26pm Urine Specific Joiner <=1.005 1.002-1.030 02/10/19 11:12pm 02/10/19 11:26pm Urine Blood NEGATIVE NEGATIVE 02/10/19 11:12pm 02/10/19 11:26pm Urine pH 6.0 4.5-8.0 02/10/19 11:12pm 02/10/19 11:26pm Urine Protein NEGATIVE mg/dL NEGATIVE 02/10/19 11:12pm 02/10/19 11:26pm Urine Urobilinogen 0.2 E.U./dL 0.2 02/10/19 11:12pm 02/10/19 11:26pm Urine Nitrite NEGATIVE NEGATIVE 02/10/19 11:12pm 02/10/19 11:26pm Urine Leukocyte Esterase NEGATIVE NEGATIVE 02/10/19 11:12pm 02/10/19 11:26pm Urine Microscopic Indicated NO NO 02/10/19 11:12pm 02/10/19 11:26pm White Blood Count 6.6 K/uL 4.8-10.8 02/10/19 11:10pm 02/10/19 11:28pm Red Blood Count 4.66 M/uL L 4.70-6.00 02/10/19 11:10pm 02/10/19 11:28pm Hemoglobin 12.8 g/dL L 13.5-17.5 02/10/19 11:10pm 02/10/19 11:28pm Hematocrit 39.5 % L 42.0-52.0 02/10/19 11:10pm 02/10/19 11:28pm Mean Corpuscular Volume 84.8 fl 80.0-100.0 02/10/19 11:10pm 02/10/19 11:28pm Mean Corpuscular Hemoglobin 27.4 pg 27.0-31.0 02/10/19 11:10pm 02/10/19 11:28pm Mean Corpuscular Hgb Concent Diff 32.3 g/dL 32.0-36.0 02/10/19 11:10pm 02/10/19 11:28pm Red Cell Distribution Width 14.0 % 11.5-14.5 02/10/19 11:10pm 02/10/19 11:28pm Platelet Count 256 K/uL 130-400 02/10/19 11:10pm 02/10/19 11:28pm Mean Platelet Volume 8.0 fl 7.4-10.4 02/10/19 11:10pm 02/10/19 11:28pm Granulocytes (%) 47.1 % L 50.0-75.0 02/10/19 11:10pm 02/10/19 11:28pm Lymphocytes % 31.9 % 20.0-40.0 02/10/19 11:10pm 02/10/19 11:28pm Monocytes % 8.0 % 0.0-15.0 02/10/19 11:10pm 02/10/19 11:28pm Eosinophils % 11.1 % H 0.0-10.0 02/10/19 11:10pm 02/10/19 11:28pm Basophils % 1.9 % 0.0-2.0 02/10/19 11:10pm 02/10/19 11:28pm Granulocytes # 3.1 K/uL 1.8-6.4 02/10/19 11:10pm 02/10/19 11:28pm Lymphocytes # 2.1 K/uL 1.2-3.6 02/10/19 11:10pm 02/10/19 11:28pm Monocytes # 0.5 K/uL 0.3-0.9 02/10/19 11:10pm 02/10/19 11:28pm Eosinophils # 0.7 K/UL H 0.0-0.5 02/10/19 11:10pm 02/10/19 11:28pm Basophils # 0.1 K/UL 0.0-0.2 02/10/19 11:10pm 02/10/19 11:28pm Manual Differential NO 02/10/19 11:10pm 02/10/19 11:28pm Sodium Level 129 mmol/L L 135-144 02/10/19 11:10pm 02/10/19 11:44pm Potassium Level 3.1 mmol/L L 3.5-5.1 02/10/19 11:10pm 02/10/19 11:44pm Chloride Level 93 mmol/L L 101-111 02/10/19 11:10pm 02/10/19 11:44pm Carbon Dioxide Level 27 mmol/L 22-32 02/10/19 11:10pm 02/10/19 11:44pm Anion Gap 12.1 mmol/L 10-20 02/10/19 11:10pm 02/10/19 11:44pm Glucose Level 600 mg/dL CH 65-99 02/10/19 11:10pm 02/10/19 11:44pm Prediabetes 100 to 125 mg/dl Diabetes 126 mg/dl or higher Prediabetes refers to individuals with plasma glucose levels intermediate between those considered normal and those considered diabetic and is also referred to as impaired glucose tolerance (IGT) or impaired fasting glucose (IFG). Blood Urea Nitrogen 8 mg/dL 8-02/10/19 11:10pm 02/10/19 11:44pm Creatinine 0.9 mg/dL 0.61-1.24 02/10/19 11:10pm 02/10/19 11:44pm EGFR Note 119.0 59.3-175.8 02/10/19 11:10pm 02/10/19 11:44pm eGFR (Estimated Glomerular Filtration Rate) eGFR calculation value obtained using the [facility] Quadratic (MCQ) equation. The reportable reference range is recommended to be greater than 60 ml/min/1.73m. This is an estimation of the patient's GFR and clinical correlation is recommended. This eGFR calculation does not account for race. This result may differ from other equations available. Calcium Level 8.6 mg/dL L 8.9-10.3 02/10/19 11:10pm 02/10/19 11:44pm Phosphorus Level 3.4 mg/dL 2.5-4.6 02/10/19 11:10pm 02/10/19 11:44pm Magnesium Level 1.8 mg/dL 1.8-2.5 02/10/19 11:10pm 02/10/19 11:44pm Albumin 3.3 g/dL L 3.5-5.0 02/10/19 11:10pm 02/10/19 11:44pm Total Bilirubin 0.2 mg/dL 0.2-1.2 02/10/19 11:10pm 02/10/19 11:44pm Alkaline Phosphatase 90 IU/L 32-91 02/10/19 11:10pm 02/10/19 11:44pm Total Protein 5.8 g/dL L 6.5-8.1 02/10/19 11:10pm 02/10/19 11:44pm Alanine Aminotransferase (ALT/SGPT) 25 IU/L 7-55 02/10/19 11:10pm 02/10/19 11:44pm Aspartate Amino Transf (AST/SGOT) 25 IU/L 15-41 02/10/19 11:10pm 02/10/19 11:44pm Globulin 2.5 g/dL 2.3-3.5 02/10/19 11:10pm 02/10/19 11:44pm Albumin/Globulin Ratio 1.3 1.2-2.2 02/10/19 11:10pm 02/10/19 11:44pm Creatine Kinase 67 IU/L 49-397 02/10/19 11:10pm 02/10/19 11:44pm Creatine Kinase MB 2.24 ng/ML 0.6-6.3 02/10/19 11:10pm 02/10/19 11:48pm Troponin I < 0.01 ng/mL 0.00-0.03 02/10/19 11:10pm 02/10/19 11:44pm Troponin I-Interpretation Reference : <0.03 ng/mL NEGATIVE 0.04 - 0.49 ng/mL EQUIVOCAL =OR > 0.5 ng/mL CONSISTENT WITH ACUTE MYOCARDIAL INJURY 98% of confirmed AMI patients will have at least one value in a set or serial specimens >0.50 ng/ml. 99% of normals are between 0.0 - 0.10 ng/ml. Serial samples on a patient that are all <0.10 ng/ml effectively rules out AMI. Persistently increased troponin I values that are above the upper limit of normal but below the threshold for AMI indicate mycardial injury but not necessarily an ischemic mechanism of injury. Troponin Important Points 1. Troponin is specific for myocardial injury but not for AMI. Elevated troponin levels above the upper limit of normal but below the AMI cutoff may be present in cardiac injury other then AMI and represent some degree of risk. 2. Elevated troponin levels inconsistent with patient history or clinical condition should be considered a sign to investigate for other cardiac conditions. 3. Serial sampling is critical for accurate diagnosis. Myoglobin 14 ug/mL L 17.4-106.0 02/10/19 11:10pm 02/10/19 11:47pm B-Type Natriuretic Peptide 88 pg/mL 0-100 02/10/19 11:10pm 02/10/19 11:51pm Beta-Hydroxybutyric Acid 0.07 mM 0.02-0.27 02/10/19 11:10pm 02/10/19 11:44pm Hemoglobin A1c Percent 14.80 % H 4.0-5.6 02/10/19 11:10pm 02/10/19 11:47pm Prediabetes 5.7% to 6.4% Diabetes 6.5% or higher Elevated levels of HbA1c suggest the need for more aggressive treatment of glycemia. The [place] [employer] recommends that a primary goal of therapy should be a HbA1c of <7% and that physicians should reevaluate the treatment regimen in patients with HbA1c values consistently >8%. N/A 378 mg/dL 02/10/19 11:10pm 02/10/19 11:47pm A1C Result% Estimated Avg.Glucose (EAG) 6.0% 126 mg/dL 6.5% 140 mg/dL 7.0% 154 mg/dL 7.5% 169 mg/dL 8.0% 183 mg/dL 8.5% 197 mg/dL 9.0% 212 mg/dL 9.5% 226 mg/dL 10.0% 240 mg/dL Reference: delroes Ramires al, Diabetes Care 31: 1437, 2008. Procedures Procedure Status Date Provider(s) CBCA W/PLT & AUTO DIFFERENTIAL Completed 02/10/19 DOLLY SANDERS COMPREHENSIVE METABOLIC PANEL Completed 02/10/19 DOLLY SANDERS MAGNESIUM Completed 02/10/19 DOLLY SANDERS A1C Completed 02/10/19 DOLLY SANDERS PHOSPHOROUS Completed 02/10/19 DOLLY SANDERS B-Hydroxybutyrate (Ketone) Completed 02/10/19 DOLLY SANDERS ROUTINE URINALYSIS Completed 02/10/19 DOLLY SANDERS CARDIAC MARKERS PANEL (ER) Completed 02/10/19 DOLLY SANDERS BNP RAPID Completed 02/10/19 DOLLY SANDERS URIC ACID Completed 02/11/19 DOLLY SANDERS CHEST 1 VIEW (AP) Active 02/11/19 DOLLY SANDERS RIGHT FOOT 4 VIEW Active 02/11/19 DOLLY SANDERS Encounters Encounter Location Arrival/Admit Date Discharge/Depart Date Attending Provider Departed Emergency [facility] 02/10/19 11:02pm 02/11/19 4:35am DOLLY SANDERS
== END 2019-06-15 21:59 | disposition home or self-care (01) ==
LOC: ER 18:32
DX: M70.22 Olecranon bursitis, left elbow (principal); I10 Essential (primary) hypertension; E11.9 Type 2 diabetes mellitus without complications; Z79.4 Long term (current) use of insulin
CPT/HCPCS: 36415; 73080; 80053; 82948; 83605; 85025; 87040; 99283; J1817; J7030

== ENCOUNTER 2020-12-12 16:00 | Emergency (ER) | payer OTHER ==
[~2020-12-12] VITALS: Ht 177.8 cm; Wt 68.0 kg
== END 2020-12-12 18:23 | disposition short-term general hospital (02) ==
LOC: ER 17:35
DX: R10.9 Unspecified abdominal pain (principal)

== ENCOUNTER 2021-09-08 16:59 | Inpatient (IN) | payer OTHER ==
[~2021-09-08] VITALS: Ht 185.4 cm; Wt 72.7 kg
[2021-09-08] MEDS ORDERED: SODIUM CHLORIDE 0.9% 1000ML 1,000 ML IV SCH ×2 (18:00→19:00)
[2021-09-08 18:33] LABS: CLARITY,URINE CLOUDY (CLEAR); COLOR,URINE YELLOW (YELLOW); KETONES,URINE >=160 (NEGATIVE); LEUKOCYTE ESTERASE ,URINE TRACE (NEGATIVE); NITRITE,URINE NEGATIVE (NEGATIVE); PROTEIN,URINE DIPSTICK 1+ (NEGATIVE)
[2021-09-08 18:34] LABS: URINE UROBILINOGEN 0.2 mg/dL (0.2 - 1)
[2021-09-08 18:36] LABS: BASOPHILS % 0.4 % (0.0-1.0); EOSINOPHILS % 0.4 % (0.0-6.0); HEMATOCRIT 34.5 % (38.2-49.6); HEMOGLOBIN 11.3 g/dL (14.0-18.0); LYMPHOCYTES # (AUTO) 1.4 (1.0-3.2); LYMPHOCYTES % 12.3 % (18.0-39.1); MEAN CORPUSCULAR HEMOGLOBIN 26.5 pg (28-32); MEAN CORPUSCULAR HGB CONC 32.8 g/dL (31-35); MEAN CORPUSCULAR VOLUME 80.8 fL (81-99); MONOCYTES # (AUTO) 1.6 (0.2-0.8); MONOCYTES % 14.3 % (4.4-11.3); NEUTROPHILS % 71.5 % (38.7-80.0); PLATELET COUNT 486 x10e3/uL (140-360); RED BLOOD COUNT 4.27 x10e6/uL (4.3-5.7)
[2021-09-08 18:47] LABS: ALBUMIN 2.5 g/dL (3.5-5.0); ALBUMIN/GLOBULIN RATIO 0.5 (0.8-2.0); ANION GAP 32.5 mmol/L (8-16); CALCIUM 9.1 mg/dL (8.4-10.2); CREATININE, SERUM 2.23 mg/dL (0.72-1.25); POTASSIUM 5.5 mmol/L (3.5-5.1)
[2021-09-08] MEDS ORDERED: PIPERACILLIN/TAZOBACTAM 4.5 GM in SODIUM CHLORIDE 0.9% 100 ML IV STA (18:50)
[2021-09-08] MEDS ORDERED: Vancomycin IV 1 GM in SODIUM CHLORIDE 0.9% 250ML 250 ML IV STA (18:50)
[2021-09-08 18:53] LABS: BACTERIA,URINE MODERATE /HPF; EPITHELIAL CELLS,URINE FEW /LPF
[2021-09-08 18:54] LABS: YEAST,URINE MANY
[2021-09-08] MEDS ORDERED: INSULIN REGULAR, HUMAN 100 UNIT/1 ML IV ONE ×2 (19:00→21:45)
[2021-09-08 19:13] LABS: ABG HCO3 10 mmol/L (22-26); ABG PCO2 22 mmHg (35-45); ABG PH 7.27 (7.35-7.45); ABG PO2 125 mmHg (80-105); ABG TCO2 11
[2021-09-08 21:07] LABS: ANION GAP 22.6 mmol/L (8-16); CALCIUM 8.2 mg/dL (8.4-10.2); CREATININE, SERUM 1.57 mg/dL (0.72-1.25); POTASSIUM 3.6 mmol/L (3.5-5.1)
[2021-09-08] MEDS ORDERED: DEXTROSE 50% SYRINGE 50 ML IV PRN ×2 (21:45→22:45)
[2021-09-08 22:00] VITALS: BP 99/66
[2021-09-08] MEDS: SODIUM CHLORIDE 0.9% 1000ML 1,000 ML IV SCH (22:34)
[2021-09-08] MEDS ORDERED: INSULIN REGULAR, HUMAN 3ML VL 100 UNIT in SODIUM CHLORIDE 0.45% 100 ML 100 ML IV SCH ×2 (22:45)
[2021-09-08] MEDS ORDERED: MAGNESIUM SULF 1GRAM/DEXTROSE 100 ML IV PRN (22:45)
[2021-09-08] MEDS ORDERED: POTASSIUM CHLORIDE 20MEQ/100ML 200 ML IV PRN (22:45)
[2021-09-08] MEDS ORDERED: SODIUM CHLORIDE 0.9% 100 ML ONE (23:08)
[2021-09-08] MEDS: INSULIN REGULAR, HUMAN 3ML VL 100 UNIT in SODIUM CHLORIDE 0.9% 100 ML IV PRN ×2 (23:10)
[2021-09-09] VITALS (11 sets, daily range): BP systolic 92–154; BP diastolic 62–93
[2021-09-09 00:39] LABS: ANION GAP 22.6 mmol/L (8-16); CALCIUM 8.4 mg/dL (8.4-10.2); CREATININE, SERUM 1.55 mg/dL (0.72-1.25); MAGNESIUM 1.8 MG/DL (1.3-2.1); POTASSIUM 3.6 mmol/L (3.5-5.1)
[2021-09-09] MEDS: SODIUM CHLORIDE 0.9% 1000ML 1,000 ML IV SCH ×4 (03:09→12:16)
[2021-09-09 06:02] LABS: BASOPHILS # (AUTO) 0.1 (0.0-0.1); BASOPHILS % 0.6 % (0.0-1.0); EOSINOPHILS # (AUTO) 0.2 (0.0-0.4); EOSINOPHILS % 2.1 % (0.0-6.0); HEMOGLOBIN 9.7 g/dL (14.0-18.0); LYMPHOCYTES # (AUTO) 1.1 (1.0-3.2); LYMPHOCYTES % 12.7 % (18.0-39.1); MEAN CORPUSCULAR HEMOGLOBIN 25.6 pg (28-32); MEAN CORPUSCULAR HGB CONC 32.3 g/dL (31-35); MEAN CORPUSCULAR VOLUME 79.2 fL (81-99); MONOCYTES # (AUTO) 1.1 (0.2-0.8); MONOCYTES % 13.6 % (4.4-11.3); NEUTROPHILS # (AUTO) 5.8 (2.1-6.9); PLATELET COUNT 398 x10e3/uL (140-360); RED BLOOD COUNT 3.79 x10e6/uL (4.3-5.7); RED CELL DISTRIBUTION WIDTH 13.7 % (11.7-14.4)
[2021-09-09 06:39] LABS: ANION GAP 13.5 mmol/L (8-16); CALCIUM 8.3 mg/dL (8.4-10.2); CREATININE, SERUM 1.46 mg/dL (0.72-1.25); MAGNESIUM 1.8 MG/DL (1.3-2.1); POTASSIUM 3.5 mmol/L (3.5-5.1)
[2021-09-09] MEDS ORDERED: INSULIN REGULAR, HUMAN 100 UNIT/1 ML SQ SCH (07:30)
[2021-09-09 09:33] LABS: ANION GAP 8.5 mmol/L (8-16); CALCIUM 8.4 mg/dL (8.4-10.2); CREATININE, SERUM 1.16 mg/dL (0.72-1.25); MAGNESIUM 1.9 MG/DL (1.3-2.1); POTASSIUM 3.5 mmol/L (3.5-5.1)
[2021-09-09] MEDS: POTASSIUM CHLORIDE 20MEQ/100ML 100 ML INJ PRN (13:41)
[2021-09-09 13:59] LABS: ANION GAP 10.4 mmol/L (8-16); CALCIUM 8.3 mg/dL (8.4-10.2); CREATININE, SERUM 1.03 mg/dL (0.72-1.25); MAGNESIUM 1.9 MG/DL (1.3-2.1); POTASSIUM 3.4 mmol/L (3.5-5.1)
[2021-09-09 14:24] LABS: CHOL/HDL RATIO 4.8 (3.9-4.7)
[2021-09-09 14:44] LABS: FREE T4 (FREE THYROXINE) 0.99 ng/dL (0.8-1.8); THYROID STIMULATING HORMONE 0.677 uIU/mL (0.350-4.940)
[2021-09-09] MEDS ORDERED: INSULIN LISPRO 100 UNIT/1 ML 3ML VIAL SQ SCH (16:30)
[2021-09-09 16:53] LABS: ANION GAP 9.7 mmol/L (8-16); CALCIUM 8.7 mg/dL (8.4-10.2); CREATININE, SERUM 0.96 mg/dL (0.72-1.25); MAGNESIUM 2.1 MG/DL (1.3-2.1); POTASSIUM 3.7 mmol/L (3.5-5.1)
[2021-09-09] MEDS ORDERED: SODIUM CHLORIDE 0.9% 1000ML 1,000 ML IV SCH (17:00)
[2021-09-09] MEDS: INSULIN GLARGINE 100 UNITS/ML VIAL SQ SCH (20:18)
[2021-09-09 20:36] LABS: ANION GAP 9.7 mmol/L (8-16); CALCIUM 8.4 mg/dL (8.4-10.2); CREATININE, SERUM 0.91 mg/dL (0.72-1.25); MAGNESIUM 2.1 MG/DL (1.3-2.1); POTASSIUM 3.7 mmol/L (3.5-5.1)
[2021-09-10] VITALS (13 sets, daily range): BP systolic 115–148; BP diastolic 61–98
[2021-09-10] MEDS: INSULIN REGULAR, HUMAN 3ML VL 100 UNIT in SODIUM CHLORIDE 0.9% 100 ML IV PRN ×2 (04:47)
[2021-09-10 05:20] LABS: ANION GAP 9.3 mmol/L (8-16); CALCIUM 8.3 mg/dL (8.4-10.2); CREATININE, SERUM 0.81 mg/dL (0.72-1.25); POTASSIUM 3.3 mmol/L (3.5-5.1)
[2021-09-10] MEDS ORDERED: DEXTROSE 5%/0.45% SOD CHL 1,000 ML IV ONE (10:15)
[2021-09-10] MEDS ORDERED: FAMOTIDINE 20 MG/2 ML VIAL IV ONE (10:37)
[2021-09-10] MEDS ORDERED: BUPIVACAINE HCL 0.5% INJ 30 ML VIAL INJ ONE (11:02)
[2021-09-10] MEDS ORDERED: DEXAMETHASONE SOD PHOS INJ 4 MG/ML SDV ONE (11:02)
[2021-09-10] MEDS ORDERED: LIDOCAINE HCL 2% LOCAL INJ 5 ML SDV VIAL INJ ONE (12:44)
[2021-09-10] MEDS ORDERED: PROPOFOL IV EMULSION 10 MG/ML 20 ML VIAL ONE (12:44)
[2021-09-10] MEDS ORDERED: POVIDONE IODINE 0.05% 0.05 % ML PO ONE (12:44)
[2021-09-10] MEDS ORDERED: ONDANSETRON HCL INJ 2MG/ML 2ML 2 MG/ML VIAL ONE (12:44)
[2021-09-10] MEDS ORDERED: METOCLOPRAMIDE HCL 10 MG/2ML VIAL ONE (12:44)
[2021-09-10] MEDS ORDERED: FENTANYL CITRATE/PF 100MCG/2 ML INJ ONE (13:15)
[2021-09-10] MEDS: POTASSIUM CHLORIDE 20MEQ/100ML 100 ML INJ PRN (13:30)
[2021-09-10] MEDS: Morphine 4mg Syringe 4 MG/ML INJ IV PRN ×2 (16:20→21:31)
[2021-09-10] MEDS: ONDANSETRON HCL INJ 2MG/ML 2ML 2 MG/ML VIAL IV PRN ×2 (16:20→21:31)
[2021-09-10] MEDS: INSULIN LISPRO 100 UNIT/1 ML 3ML VIAL SQ SCH ×3 (16:30→21:00)
[2021-09-10] MEDS: INSULIN GLARGINE 100 UNITS/ML VIAL SQ SCH (21:38)
[2021-09-10] MEDS: CEFTRIAXONE 1 GM in SODIUM CHLORIDE 0.9% 50ML 50 ML IV SCH (21:46)
[2021-09-10] MEDS: Vancomycin IV 1 GM in SODIUM CHLORIDE 0.9% 250ML 250 ML IV SCH (22:23)
[2021-09-11] VITALS (8 sets, daily range): BP systolic 112–138; BP diastolic 67–85
[2021-09-11] MEDS: ONDANSETRON HCL INJ 2MG/ML 2ML 2 MG/ML VIAL IV PRN ×5 (03:06→23:27)
[2021-09-11] MEDS: Morphine 4mg Syringe 4 MG/ML INJ IV PRN ×5 (03:06→23:27)
[2021-09-11] MEDS ORDERED: GABAPENTIN800 MG PO (03:16)
[2021-09-11] MEDS: Vancomycin IV 1 GM in SODIUM CHLORIDE 0.9% 250ML 250 ML IV SCH ×2 (08:59→21:46)
[2021-09-11] MEDS: INSULIN LISPRO 100 UNIT/1 ML 3ML VIAL SQ SCH ×7 (09:01→21:10)
[2021-09-11] MEDS: GABAPENTIN 400 MG CAP PO SCH (16:37)
[2021-09-11] MEDS ORDERED: NON-FORMULARY MEDICATION (Gabapentin 1,200 MG) PO SCH (17:00)
[2021-09-11] MEDS: CEFTRIAXONE 1 GM in SODIUM CHLORIDE 0.9% 50ML 50 ML IV SCH (20:38)
[2021-09-11] MEDS ORDERED: INSULIN GLARGINE 100 UNITS/ML VIAL SQ SCH (21:00)
[2021-09-11] MEDS: TRAMADOL HCL 50 MG TAB PO SCH (21:24)
[2021-09-12] VITALS (8 sets, daily range): BP systolic 94–152; BP diastolic 73–89
[2021-09-12] MEDS: Morphine 4mg Syringe 4 MG/ML INJ IV PRN ×5 (03:39→22:30)
[2021-09-12] MEDS: ONDANSETRON HCL INJ 2MG/ML 2ML 2 MG/ML VIAL IV PRN ×5 (03:40→22:30)
[2021-09-12] MEDS: TRAMADOL HCL 50 MG TAB PO SCH ×3 (05:25→21:49)
[2021-09-12] MEDS: GABAPENTIN 400 MG CAP PO SCH ×2 (08:39→16:14)
[2021-09-12] MEDS: Vancomycin IV 1 GM in SODIUM CHLORIDE 0.9% 250ML 250 ML IV SCH ×2 (08:44→22:13)
[2021-09-12] MEDS: INSULIN LISPRO 100 UNIT/1 ML 3ML VIAL SQ SCH ×7 (08:44→21:00)
[2021-09-12] MEDS ORDERED: PLAVIX75 MG PO (11:04)
[2021-09-12] MEDS ORDERED: ASPIRIN81 MG PO (11:04)
[2021-09-12] MEDS: CEFTRIAXONE 1 GM in SODIUM CHLORIDE 0.9% 50ML 50 ML IV SCH (21:43)
[2021-09-12] MEDS: INSULIN GLARGINE 100 UNITS/ML VIAL SQ SCH (21:57)
[2021-09-13] VITALS (7 sets, daily range): BP systolic 90–155; BP diastolic 63–99
[2021-09-13] MEDS: Morphine 4mg Syringe 4 MG/ML INJ IV PRN ×4 (02:44→17:19)
[2021-09-13] MEDS: ONDANSETRON HCL INJ 2MG/ML 2ML 2 MG/ML VIAL IV PRN ×3 (02:44→13:02)
[2021-09-13] MEDS: TRAMADOL HCL 50 MG TAB PO SCH ×3 (05:16→21:23)
[2021-09-13] MEDS: GABAPENTIN 400 MG CAP PO SCH ×2 (08:27→17:13)
[2021-09-13] MEDS: INSULIN LISPRO 100 UNIT/1 ML 3ML VIAL SQ SCH ×7 (08:27→21:20)
[2021-09-13] MEDS: CLOPIDOGREL BISULFATE 75 MG TAB PO SCH (08:27)
[2021-09-13] MEDS: ASPIRIN 81 MG CHEW TAB PO SCH (08:31)
[2021-09-13] MEDS: Vancomycin IV 1 GM in SODIUM CHLORIDE 0.9% 250ML 250 ML IV SCH ×2 (09:05→23:00)
[2021-09-13 17:50] LABS: BASOPHILS # (AUTO) 0.1 (0.0-0.1); BASOPHILS % 0.7 % (0.0-1.0); EOSINOPHILS # (AUTO) 0.2 (0.0-0.4); EOSINOPHILS % 2.6 % (0.0-6.0); HEMATOCRIT 32.6 % (38.2-49.6); HEMOGLOBIN 9.8 g/dL (14.0-18.0); LYMPHOCYTES # (AUTO) 1.5 (1.0-3.2); LYMPHOCYTES % 15.8 % (18.0-39.1); MEAN CORPUSCULAR HEMOGLOBIN 25.3 pg (28-32); MEAN CORPUSCULAR HGB CONC 30.1 g/dL (31-35); NEUTROPHILS # (AUTO) 6.3 (2.1-6.9); NEUTROPHILS % 68.9 % (38.7-80.0); PLATELET COUNT 655 x10e3/uL (140-360); RED BLOOD COUNT 3.88 x10e6/uL (4.3-5.7); RED CELL DISTRIBUTION WIDTH 14.4 % (11.7-14.4)
[2021-09-13 18:09] LABS: ALBUMIN 1.8 g/dL (3.5-5.0); ALBUMIN/GLOBULIN RATIO 0.4 (0.8-2.0); ANION GAP 11.8 mmol/L (8-16); CALCIUM 8.8 mg/dL (8.4-10.2); CREATININE, SERUM 1.03 mg/dL (0.72-1.25); POTASSIUM 3.8 mmol/L (3.5-5.1)
[2021-09-13] MEDS: INSULIN GLARGINE 100 UNITS/ML VIAL SQ SCH (21:21)
[2021-09-13] MEDS: CEFTRIAXONE 1 GM in SODIUM CHLORIDE 0.9% 50ML 50 ML IV SCH (21:23)
[2021-09-13] MEDS ORDERED: SODIUM CHLORIDE 0.9% 250ML 250 ML ONE (22:48)
[2021-09-14] VITALS: BP 122/69
[2021-09-14] MEDS: Morphine 4mg Syringe 4 MG/ML INJ IV PRN ×2 (03:07→08:10)
[2021-09-14 04:00] VITALS: BP 138/94
[2021-09-14] MEDS: TRAMADOL HCL 50 MG TAB PO SCH ×2 (05:22→15:28)
[2021-09-14 06:06] LABS: BASOPHILS # (AUTO) 0.1 (0.0-0.1); BASOPHILS % 0.7 % (0.0-1.0); EOSINOPHILS # (AUTO) 0.3 (0.0-0.4); EOSINOPHILS % 3.7 % (0.0-6.0); HEMATOCRIT 31.2 % (38.2-49.6); HEMOGLOBIN 9.4 g/dL (14.0-18.0); LYMPHOCYTES # (AUTO) 1.3 (1.0-3.2); LYMPHOCYTES % 17.9 % (18.0-39.1); MEAN CORPUSCULAR HEMOGLOBIN 25.3 pg (28-32); MEAN CORPUSCULAR HGB CONC 30.1 g/dL (31-35); MEAN CORPUSCULAR VOLUME 83.9 fL (81-99); MONOCYTES # (AUTO) 0.9 (0.2-0.8); MONOCYTES % 12.1 % (4.4-11.3); NEUTROPHILS # (AUTO) 4.9 (2.1-6.9); NEUTROPHILS % 64.8 % (38.7-80.0); PLATELET COUNT 665 x10e3/uL (140-360); RED BLOOD COUNT 3.72 x10e6/uL (4.3-5.7); RED CELL DISTRIBUTION WIDTH 14.3 % (11.7-14.4)
[2021-09-14 06:23] LABS: ALBUMIN 1.8 g/dL (3.5-5.0); ALBUMIN/GLOBULIN RATIO 0.4 (0.8-2.0); ANION GAP 11.7 mmol/L (8-16); CALCIUM 8.6 mg/dL (8.4-10.2); CREATININE, SERUM 0.98 mg/dL (0.72-1.25); POTASSIUM 3.7 mmol/L (3.5-5.1)
[2021-09-14 07:46] VITALS: BP 146/96
[2021-09-14] MEDS: ASPIRIN 81 MG CHEW TAB PO SCH (08:22)
[2021-09-14] MEDS: GABAPENTIN 400 MG CAP PO SCH (08:22)
[2021-09-14] MEDS: Vancomycin IV 1 GM in SODIUM CHLORIDE 0.9% 250ML 250 ML IV SCH (08:22)
[2021-09-14] MEDS: CLOPIDOGREL BISULFATE 75 MG TAB PO SCH (08:22)
[2021-09-14 08:23] VITALS: BP 146/96
[2021-09-14] MEDS: INSULIN LISPRO 100 UNIT/1 ML 3ML VIAL SQ SCH ×4 (08:30→11:30)
[2021-09-14 12:05] VITALS: BP 129/82
[2021-09-14] MEDS: CEFTRIAXONE 1 GM in SODIUM CHLORIDE 0.9% 50ML 50 ML IV SCH (15:27)
[2021-09-14 16:16] VITALS: BP 161/97
[2021-09-14] MEDS ORDERED: INSULIN LISPRO 100 UNIT/1 ML 3ML VIAL SQ SCH (16:30)
== END 2021-09-14 16:41 | disposition home health service (06) | DRG 853 ==
LOC: ER 17:36 → ERHOLD 18:55 → IMCU 19:45 → MED/SURG3 09-10 17:53 → MED/SURG2 09-13 15:55
PROC: XW0 New Technology, Anatomical Regions, Introduction (ICD-10-PCS; principal; 2021-09-08)
PROC: 0Y6M0ZB Detachment at Right Foot, Partial 2nd Ray, Open Approach (ICD-10-PCS; 2021-09-10)
PROC: 02HV33Z Insertion of Infusion Device into Superior Vena Cava, Percutaneous Approach (ICD-10-PCS; 2021-09-13)
DX: A41.9 Sepsis, unspecified organism (principal); E11.10 Type 2 diabetes mellitus with ketoacidosis without coma; L97.516 Non-pressure chronic ulcer of other part of right foot with bone involvement without evidence of necrosis; M86.171 Other acute osteomyelitis, right ankle and foot; L02.611 Cutaneous abscess of right foot; I69.354 Hemiplegia and hemiparesis following cerebral infarction affecting left non-dominant side; E11.52 Type 2 diabetes mellitus with diabetic peripheral angiopathy with gangrene; I96 Gangrene, not elsewhere classified; L97.518 Non-pressure chronic ulcer of other part of right foot with other specified severity; E11.40 Type 2 diabetes mellitus with diabetic neuropathy, unspecified; E11.65 Type 2 diabetes mellitus with hyperglycemia; E11.621 Type 2 diabetes mellitus with foot ulcer; Z79.899 Other long term (current) drug therapy; F32.9 Major depressive disorder, single episode, unspecified; E11.69 Type 2 diabetes mellitus with other specified complication; Z91.14 Patient's other noncompliance with medication regimen; I25.10 Atherosclerotic heart disease of native coronary artery without angina pectoris; Z95.5 Presence of coronary angioplasty implant and graft; E11.628 Type 2 diabetes mellitus with other skin complications; D63.8 Anemia in other chronic diseases classified elsewhere; R33.9 Retention of urine, unspecified; I11.9 Hypertensive heart disease without heart failure; B96.4 Proteus (mirabilis) (morganii) as the cause of diseases classified elsewhere; B95.2 Enterococcus as the cause of diseases classified elsewhere; D64.9 Anemia, unspecified; B96.89 Other specified bacterial agents as the cause of diseases classified elsewhere; F41.9 Anxiety disorder, unspecified; F32.A Depression, unspecified; N28.9 Disorder of kidney and ureter, unspecified
CPT/HCPCS: 36415; 36569; 71045; 80048; 80053; 80061; 80202; 81001; 82805; 82948; 83036; 83605; 83735; 84439; 84443; 85025; 87040; 87071; 87075; 87086; 87186; 87205; 88302; 88305; 88311; 93005; 93925; 94799; 99251; 99285; J0696; J1100; J1815; J1817; J2001; J2270; J2405; J2543; J2765; J3010; J3370; J3480; J7030; J7050; U0002

== ENCOUNTER 2021-09-23 09:29 | Inpatient (IN) | payer OTHER ==
[~2021-09-23] VITALS: Ht 185.4 cm; Wt 72.6 kg
[2021-09-23] VITALS (8 sets, daily range): BP systolic 112–155; BP diastolic 78–89
[~2021-09-23 09:29] MED LIST changes: +ASPIRIN81 MG PO; +GABAPENTIN800 MG PO; +PLAVIX75 MG PO
[2021-09-23] MEDS ORDERED: ONDANSETRON HCL INJ 2MG/ML 2ML 2 MG/ML VIAL IV STA (09:38)
[2021-09-23] MEDS ORDERED: SODIUM CHLORIDE 0.9% 1000ML 1,000 ML IV STA (09:38)
[2021-09-23] MEDS ORDERED: Vancomycin IV 1 GM in SODIUM CHLORIDE 0.9% 250ML 250 ML IV ONE (10:00)
[2021-09-23] MEDS ORDERED: CEFTRIAXONE 2 GM in SODIUM CHLORIDE 0.9% 100 ML IV ONE (10:00)
[2021-09-23 10:01] LABS: BASOPHILS # (AUTO) 0.1 (0.0-0.1); BASOPHILS % 0.7 % (0.0-1.0); EOSINOPHILS # (AUTO) 0.1 (0.0-0.4); HEMATOCRIT 37.8 % (38.2-49.6); HEMOGLOBIN 11.9 g/dL (14.0-18.0); LYMPHOCYTES # (AUTO) 1.9 (1.0-3.2); LYMPHOCYTES % 21.7 % (18.0-39.1); MEAN CORPUSCULAR HEMOGLOBIN 25.4 pg (28-32); MEAN CORPUSCULAR HGB CONC 31.5 g/dL (31-35); MEAN CORPUSCULAR VOLUME 80.8 fL (81-99); MONOCYTES # (AUTO) 0.4 (0.2-0.8); NEUTROPHILS # (AUTO) 6.1 (2.1-6.9); NEUTROPHILS % 71.1 % (38.7-80.0); PLATELET COUNT 454 x10e3/uL (140-360); RED BLOOD COUNT 4.68 x10e6/uL (4.3-5.7); RED CELL DISTRIBUTION WIDTH 14.2 % (11.7-14.4)
[2021-09-23 10:27] LABS: ALBUMIN 2.5 g/dL (3.5-5.0); ALBUMIN/GLOBULIN RATIO 0.5 (0.8-2.0); ANION GAP 17.8 mmol/L (8-16); CALCIUM 9.2 mg/dL (8.4-10.2); CREATININE, SERUM 1.38 mg/dL (0.72-1.25); MAGNESIUM 1.8 MG/DL (1.3-2.1); POTASSIUM 3.8 mmol/L (3.5-5.1)
[2021-09-23 10:33] LABS: CREATINE KINASE MB 5.8 ng/mL (0-5.0)
[2021-09-23 10:45] LABS: INR 0.88; PROTHROMBIN TIME 12.8 seconds (11.9-14.5)
[2021-09-23 10:46] LABS: PARTIAL THROMBOPLASTIN TIME 29.2 seconds (23.8-35.5)
[2021-09-23 11:13] LABS: CLARITY,URINE TURBID (CLEAR); COLOR,URINE YELLOW (YELLOW); KETONES,URINE 2+ (NEGATIVE); LEUKOCYTE ESTERASE ,URINE SMALL (NEGATIVE); NITRITE,URINE NEGATIVE (NEGATIVE); PROTEIN,URINE DIPSTICK >=300 (NEGATIVE); URINE UROBILINOGEN 0.2 mg/dL (0.2 - 1)
[2021-09-23 11:20] LABS: BACTERIA,URINE MODERATE /HPF; RBC,URINE 21-50 /HPF (0-5)
[2021-09-23] MEDS: SODIUM CHLORIDE 0.9% 1000ML 1,000 ML IV SCH ×2 (11:22→21:12)
[2021-09-23 13:03] LABS: CHOL/HDL RATIO 3.9 (3.9-4.7)
[2021-09-23] MEDS: ONDANSETRON HCL INJ 2MG/ML 2ML 2 MG/ML VIAL IV PRN (13:18)
[2021-09-23] MEDS: GABAPENTIN 400 MG CAP PO SCH (16:58)
[2021-09-23] MEDS: FAMOTIDINE 20 MG TAB PO SCH (16:58)
[2021-09-23] MEDS: ENOXAPARIN SOD INJ 40 MG/0.4 ML SYR SC SCH (16:58)
[2021-09-23] MEDS: INSULIN GLARGINE 100 UNITS/ML VIAL SQ SCH (16:59)
[2021-09-23] MEDS: Morphine 2mg Syringe 2 MG/ML SYR IV PRN ×2 (18:30→22:56)
[2021-09-23 19:14] LABS: CREATINE KINASE MB 5.3 ng/mL (0-5.0)
[2021-09-24] VITALS (7 sets, daily range): BP systolic 127–177; BP diastolic 88–104
[2021-09-24 03:31] LABS: BASOPHILS # (AUTO) 0.1 (0.0-0.1); BASOPHILS % 1.1 % (0.0-1.0); EOSINOPHILS # (AUTO) 0.1 (0.0-0.4); EOSINOPHILS % 1.4 % (0.0-6.0); HEMATOCRIT 33.6 % (38.2-49.6); HEMOGLOBIN 10.6 g/dL (14.0-18.0); LYMPHOCYTES # (AUTO) 1.5 (1.0-3.2); LYMPHOCYTES % 18.7 % (18.0-39.1); MEAN CORPUSCULAR HEMOGLOBIN 25.5 pg (28-32); MEAN CORPUSCULAR HGB CONC 31.5 g/dL (31-35); MEAN CORPUSCULAR VOLUME 80.8 fL (81-99); MONOCYTES # (AUTO) 0.5 (0.2-0.8); MONOCYTES % 5.9 % (4.4-11.3); NEUTROPHILS # (AUTO) 5.8 (2.1-6.9); NEUTROPHILS % 72.5 % (38.7-80.0); PLATELET COUNT 386 x10e3/uL (140-360); RED BLOOD COUNT 4.16 x10e6/uL (4.3-5.7); RED CELL DISTRIBUTION WIDTH 14.2 % (11.7-14.4)
[2021-09-24 03:50] LABS: ALBUMIN 2.2 g/dL (3.5-5.0); ALBUMIN/GLOBULIN RATIO 0.5 (0.8-2.0); ANION GAP 10.5 mmol/L (8-16); CALCIUM 8.1 mg/dL (8.4-10.2); CREATININE, SERUM 1.11 mg/dL (0.72-1.25); POTASSIUM 3.5 mmol/L (3.5-5.1)
[2021-09-24] MEDS: Morphine 2mg Syringe 2 MG/ML SYR IV PRN ×5 (04:08→21:56)
[2021-09-24 04:09] LABS: CREATINE KINASE MB 3.4 ng/mL (0-5.0)
[2021-09-24] MEDS ORDERED: CEFTRIAXONE 2 GM VIAL ONE (08:01)
[2021-09-24] MEDS ORDERED: SODIUM CHLORIDE 0.9% 100 ML ONE (08:33)
[2021-09-24] MEDS: ASPIRIN 81 MG CHEW TAB PO SCH (08:52)
[2021-09-24] MEDS: FAMOTIDINE 20 MG TAB PO SCH ×2 (08:52→17:30)
[2021-09-24] MEDS: GABAPENTIN 400 MG CAP PO SCH ×2 (08:54→17:32)
[2021-09-24] MEDS: INSULIN GLARGINE 100 UNITS/ML VIAL SQ SCH ×2 (09:00→17:00)
[2021-09-24] MEDS: ONDANSETRON HCL INJ 2MG/ML 2ML 2 MG/ML VIAL IV PRN ×3 (09:14→17:40)
[2021-09-24] MEDS: CEFTRIAXONE 2 GM in SODIUM CHLORIDE 0.9% 100 ML IV SCH (09:17)
[2021-09-24] MEDS: SODIUM CHLORIDE 0.9% 1000ML 1,000 ML IV SCH (17:15)
[2021-09-24] MEDS: ENOXAPARIN SOD INJ 40 MG/0.4 ML SYR SC SCH (17:32)
[2021-09-25] VITALS: BP 128/86
[2021-09-25] MEDS: Morphine 2mg Syringe 2 MG/ML SYR IV PRN ×3 (02:12→10:43)
[2021-09-25] MEDS: SODIUM CHLORIDE 0.9% 1000ML 1,000 ML IV SCH ×2 (02:13→13:15)
[2021-09-25 04:00] VITALS: BP 131/89
[2021-09-25 07:50] VITALS: BP 131/89
[2021-09-25 07:52] VITALS: BP 93/74
[2021-09-25] MEDS ORDERED: CEFTRIAXONE 2 GM VIAL ONE (08:51)
[2021-09-25] MEDS ORDERED: Vancomycin IV 750 MG in SODIUM CHLORIDE 0.9% 250ML 150 ML IV SCH (09:00)
[2021-09-25] MEDS: GABAPENTIN 400 MG CAP PO SCH (09:05)
[2021-09-25] MEDS: FAMOTIDINE 20 MG TAB PO SCH (09:05)
[2021-09-25] MEDS: ASPIRIN 81 MG CHEW TAB PO SCH (09:05)
[2021-09-25] MEDS: INSULIN GLARGINE 100 UNITS/ML VIAL SQ SCH (09:07)
[2021-09-25] MEDS ORDERED: SODIUM CHLORIDE 0.9% 100 ML ONE (10:13)
[2021-09-25] MEDS: CEFTRIAXONE 2 GM in SODIUM CHLORIDE 0.9% 100 ML IV SCH (10:30)
[2021-09-25 11:18] VITALS: BP 175/119
[2021-09-25 15:54] VITALS: BP 162/102
[2021-09-25] MEDS ORDERED: SODIUM CHLORIDE 0.9% 1000ML 1,000 ML ONE (18:40)
== END 2021-09-25 16:17 | disposition home or self-care (01) | DRG 699 ==
LOC: ER 09:49 → ERHOLD 11:16 → MED/SURG3 13:30
PROVIDERS: ADMIT Internal Medicine; ATTEND Internal Medicine
DX: T83.511A Infection and inflammatory reaction due to indwelling urethral catheter, initial encounter (principal); E11.52 Type 2 diabetes mellitus with diabetic peripheral angiopathy with gangrene; L03.115 Cellulitis of right lower limb; I96 Gangrene, not elsewhere classified; M86.171 Other acute osteomyelitis, right ankle and foot; N17.9 Acute kidney failure, unspecified; E11.69 Type 2 diabetes mellitus with other specified complication; N39.0 Urinary tract infection, site not specified; S00.01XA Abrasion of scalp, initial encounter; E11.42 Type 2 diabetes mellitus with diabetic polyneuropathy; I10 Essential (primary) hypertension; E86.0 Dehydration; M79.7 Fibromyalgia; L97.519 Non-pressure chronic ulcer of other part of right foot with unspecified severity; E11.621 Type 2 diabetes mellitus with foot ulcer; Z96.0 Presence of urogenital implants; E78.5 Hyperlipidemia, unspecified; M54.9 Dorsalgia, unspecified; Z89.421 Acquired absence of other right toe(s); Z86.73 Personal history of transient ischemic attack (TIA), and cerebral infarction without residual deficits; Z20.822 Contact with and (suspected) exposure to COVID-19
CPT/HCPCS: 36415; 51700; 74022; 80053; 80061; 81001; 82550; 82553; 82948; 83036; 83605; 83735; 84484; 85025; 85610; 85730; 87040; 87071; 87086; 87205; 93005; 94799; 97139; 99284; J0696; J1650; J1815; J2270; J2405; J3370; J7030; J7050; U0002

== ENCOUNTER 2021-11-26 07:29 | Emergency (ER) | payer OTHER ==
[~2021-11-26] VITALS: Ht 185.4 cm; Wt 72.6 kg
[2021-11-26] MEDS ORDERED: SODIUM CHLORIDE 0.9% 1000ML 1,000 ML IV STA ×2 (07:52→08:32)
[2021-11-26] MEDS ORDERED: ONDANSETRON HCL INJ 2MG/ML 2ML 2 MG/ML VIAL IV STA (07:52)
[2021-11-26 08:06] LABS: BASOPHILS # (AUTO) 0.1 (0.0-0.1); BASOPHILS % 0.8 % (0.0-1.0); EOSINOPHILS # (AUTO) 0.1 (0.0-0.4); EOSINOPHILS % 0.8 % (0.0-6.0); HEMATOCRIT 38.4 % (38.2-49.6); HEMOGLOBIN 11.6 g/dL (14.0-18.0); LYMPHOCYTES # (AUTO) 1.2 (1.0-3.2); LYMPHOCYTES % 12.3 % (18.0-39.1); MEAN CORPUSCULAR HEMOGLOBIN 25.1 pg (28-32); MEAN CORPUSCULAR HGB CONC 30.2 g/dL (31-35); MEAN CORPUSCULAR VOLUME 83.1 fL (81-99); MONOCYTES # (AUTO) 0.7 (0.2-0.8); MONOCYTES % 7.1 % (4.4-11.3); NEUTROPHILS # (AUTO) 7.8 (2.1-6.9); NEUTROPHILS % 78.6 % (38.7-80.0); PLATELET COUNT 379 x10e3/uL (140-360); RED BLOOD COUNT 4.62 x10e6/uL (4.3-5.7); RED CELL DISTRIBUTION WIDTH 14.9 % (11.7-14.4)
[2021-11-26 08:20] LABS: INR 0.9
[2021-11-26 08:21] LABS: PARTIAL THROMBOPLASTIN TIME 28.8 seconds (23.8-35.5)
[2021-11-26 08:30] LABS: ALANINE AMINOTRANSFERASE 10 IU/L (0-55); ALBUMIN 2.9 g/dL (3.5-5.0); ALBUMIN/GLOBULIN RATIO 0.6 (0.8-2.0); ALKALINE PHOSPHATASE 115 IU/L (40-150); ANION GAP 22.7 mmol/L (8-16); BLOOD UREA NITROGEN 22 mg/dL (7-26); BUN/CREATININE RATIO 16 (6-25); CARBON DIOXIDE 17 mmol/L (22-29); CHLORIDE 96 mmol/L (98-107); CREATINE KINASE 85 IU/L (30-200); CREATININE, SERUM 1.41 mg/dL (0.72-1.25); EST GLOMERULAR FILTRATION RATE 52 ML/MIN (60-); POTASSIUM 4.7 mmol/L (3.5-5.1); SODIUM 131 mmol/L (136-145)
[2021-11-26 08:31] LABS: CALCIUM 9.4 mg/dL (8.4-10.2); GLUCOSE 408 mg/dL (74-118)
[2021-11-26] MEDS ORDERED: INSULIN REGULAR, HUMAN 100 UNIT/1 ML IV ONE (08:45)
[2021-11-26 08:58] LABS: ABG HCO3 18 mmol/L (22-26); ABG PCO2 32 mmHg (35-45); ABG PH 7.36 (7.35-7.45); ABG PO2 149 mmHg (80-105); ABG TCO2 19
[2021-11-26 09:42] LABS: CLARITY,URINE CLOUDY (CLEAR); COLOR,URINE YELLOW (YELLOW); KETONES,URINE 2+ (NEGATIVE); LEUKOCYTE ESTERASE ,URINE SMALL (NEGATIVE); NITRITE,URINE POSITIVE (NEGATIVE); PROTEIN,URINE DIPSTICK TRACE (NEGATIVE); URINE UROBILINOGEN 0.2 mg/dL (0.2 - 1)
[2021-11-26 09:46] LABS: WBC,URINE (MAN) >50 /HPF (0-5)
[2021-11-26 09:47] LABS: BACTERIA,URINE MODERATE /HPF; EPITHELIAL CELLS,URINE FEW /LPF; RBC,URINE 21-50 /HPF (0-5); YEAST,URINE MODERATE
== END 2021-11-26 10:15 | disposition home or self-care (01) ==
LOC: ER 07:35
DX: R11.2 Nausea with vomiting, unspecified (principal); E11.65 Type 2 diabetes mellitus with hyperglycemia; E11.621 Type 2 diabetes mellitus with foot ulcer; L97.519 Non-pressure chronic ulcer of other part of right foot with unspecified severity; L08.9 Local infection of the skin and subcutaneous tissue, unspecified; Z20.822 Contact with and (suspected) exposure to COVID-19; R94.31 Abnormal electrocardiogram [ECG] [EKG]
CPT/HCPCS: 36415; 36600; 71045; 73630; 80053; 81001; 82550; 82553; 82805; 82948; 83735; 83880; 84484; 85025; 85610; 85730; 87040; 87086; 87186; 93005; 99284; C9113; J2405; J7030; U0002

== ENCOUNTER 2021-12-08 13:56 | Inpatient (IN) | payer OTHER ==
[~2021-12-08] VITALS: Ht 170.2 cm; Wt 67.8 kg
[2021-12-08] MEDS ORDERED: SODIUM CHLORIDE 0.9% 1000ML 1,000 ML IV STA (14:41)
[2021-12-08] MEDS ORDERED: ONDANSETRON HCL INJ 2MG/ML 2ML 2 MG/ML VIAL IV STA (14:41)
[2021-12-08 14:52] LABS: BASOPHILS # (AUTO) 0.1 (0.0-0.1); BASOPHILS % 0.7 % (0.0-1.0); EOSINOPHILS # (AUTO) 0.3 (0.0-0.4); EOSINOPHILS % 3.5 % (0.0-6.0); HEMATOCRIT 36.3 % (38.2-49.6); HEMOGLOBIN 11.1 g/dL (14.0-18.0); LYMPHOCYTES # (AUTO) 1.6 (1.0-3.2); LYMPHOCYTES % 17.8 % (18.0-39.1); MEAN CORPUSCULAR HEMOGLOBIN 24.9 pg (28-32); MEAN CORPUSCULAR HGB CONC 30.6 g/dL (31-35); MEAN CORPUSCULAR VOLUME 81.6 fL (81-99); MONOCYTES # (AUTO) 0.7 (0.2-0.8); MONOCYTES % 7.7 % (4.4-11.3); NEUTROPHILS # (AUTO) 6.3 (2.1-6.9); NEUTROPHILS % 69.6 % (38.7-80.0); PLATELET COUNT 459 x10e3/uL (140-360); RED BLOOD COUNT 4.45 x10e6/uL (4.3-5.7); RED CELL DISTRIBUTION WIDTH 14.8 % (11.7-14.4)
[2021-12-08 14:58] LABS: INR 1.02; PROTHROMBIN TIME 14.3 seconds (11.9-14.5)
[2021-12-08 14:59] LABS: PARTIAL THROMBOPLASTIN TIME 29.2 seconds (23.8-35.5)
[2021-12-08 15:08] LABS: ALANINE AMINOTRANSFERASE 8 IU/L (0-55); ALBUMIN 2.6 g/dL (3.5-5.0); ALBUMIN/GLOBULIN RATIO 0.6 (0.8-2.0); ALKALINE PHOSPHATASE 109 IU/L (40-150); ANION GAP 30.5 mmol/L (8-16); BLOOD UREA NITROGEN 11 mg/dL (7-26); BUN/CREATININE RATIO 6 (6-25); CALCIUM 8.6 mg/dL (8.4-10.2); CARBON DIOXIDE 13 mmol/L (22-29); CHLORIDE 100 mmol/L (98-107); CREATINE KINASE 56 IU/L (30-200); CREATININE, SERUM 1.75 mg/dL (0.72-1.25); GLUCOSE 300 mg/dL (74-118); LIPASE 13 U/L (8-78); MAGNESIUM 1.9 MG/DL (1.3-2.1); POTASSIUM 3.5 mmol/L (3.5-5.1); SODIUM 140 mmol/L (136-145)
[2021-12-08 15:08] LABS: CLARITY,URINE HAZY (CLEAR); COLOR,URINE YELLOW (YELLOW); KETONES,URINE >=160 (NEGATIVE); LEUKOCYTE ESTERASE ,URINE SMALL (NEGATIVE); NITRITE,URINE NEGATIVE (NEGATIVE); PROTEIN,URINE DIPSTICK 2+ (NEGATIVE); URINE UROBILINOGEN 0.2 mg/dL (0.2 - 1)
[2021-12-08 15:09] LABS: WBC,URINE (MAN) >50 /HPF (0-5)
[2021-12-08 15:10] LABS: AMORPHOUS SEDIMENT,URINE FEW (FEW); BACTERIA,URINE MODERATE /HPF; EPITHELIAL CELLS,URINE FEW /LPF; MUCUS,URINE MODERATE (RARE); YEAST,URINE MODERATE
[2021-12-08] MEDS: MEROPENEM 1 GM in SODIUM CHLORIDE 0.9% 100 ML IV SCH (16:19)
[2021-12-08 16:39] LABS: ABG HCO3 11 mmol/L (22-26); ABG PCO2 21 mmHg (35-45); ABG PH 7.32 (7.35-7.45); ABG PO2 118 mmHg (80-105); ABG TCO2 12
[2021-12-08] MEDS ORDERED: INSULIN REGULAR, HUMAN 3ML VL 100 UNIT in SODIUM CHLORIDE 0.9% 99 ML IV SCH ×2 (17:15)
[2021-12-08] MEDS ORDERED: SODIUM CHLORIDE 0.9% 1000ML 1,000 ML IV SCH (17:15)
[2021-12-08] MEDS ORDERED: POTASSIUM CHLORIDE 20MEQ/100ML 200 ML IV PRN (17:15)
[2021-12-08] MEDS ORDERED: ONDANSETRON HCL INJ 2MG/ML 2ML 2 MG/ML VIAL IV PRN (17:45)
[2021-12-08] MEDS ORDERED: Morphine 2mg Syringe 2 MG/ML SYR IV PRN (17:45)
[2021-12-08] MEDS ORDERED: INSULIN REGULAR IN 0.9 % NACL 100 ML IV SCH (18:00)
[2021-12-08] MEDS ORDERED: MEROPENEM 1 GM in SODIUM CHLORIDE 0.9% 100 ML IV SCH (18:00)
[2021-12-08 19:00] VITALS: BP 148/89
[2021-12-08] MEDS: DEXTROSE 5%/0.45% SOD CHL 1,000 ML IV SCH (19:02)
[2021-12-08] MEDS: ONDANSETRON HCL INJ 2MG/ML 2ML 2 MG/ML VIAL IV PRN ×2 (19:02→22:28)
[2021-12-08 20:00] VITALS: BP 136/85
[2021-12-08 20:53] LABS: ANION GAP 23.8 mmol/L (8-16); CALCIUM 8.3 mg/dL (8.4-10.2); CREATININE, SERUM 1.46 mg/dL (0.72-1.25); MAGNESIUM 1.8 MG/DL (1.3-2.1); POTASSIUM 3.8 mmol/L (3.5-5.1)
[2021-12-08 20:57] VITALS: BP 136/85
[2021-12-08 21:12] LABS: CREATINE KINASE 64 IU/L (30-200)
[2021-12-08 21:15] VITALS: BP 140/80
[2021-12-08 22:00] VITALS: BP 155/95
[2021-12-08] MEDS: GABAPENTIN 400 MG CAP PO SCH (22:00)
[2021-12-08 23:00] VITALS: BP 157/94
[2021-12-09] VITALS (23 sets, daily range): BP systolic 112–163; BP diastolic 75–104
[2021-12-09 00:50] LABS: CREATINE KINASE 62 IU/L (30-200)
[2021-12-09 00:58] LABS: ANION GAP 17.4 mmol/L (8-16); CALCIUM 7.8 mg/dL (8.4-10.2); CREATININE, SERUM 1.14 mg/dL (0.72-1.25); MAGNESIUM 1.6 MG/DL (1.3-2.1); POTASSIUM 3.4 mmol/L (3.5-5.1)
[2021-12-09] MEDS: MAGNESIUM SULF 1GRAM/DEXTROSE 100 ML IV PRN ×2 (01:26→06:35)
[2021-12-09] MEDS ORDERED: POTASSIUM CHLORIDE 20MEQ/100ML 100 ML INJ PRN (01:30)
[2021-12-09] MEDS ORDERED: POTASSIUM CHLORIDE 20MEQ/100ML 100 ML ONE (01:34)
[2021-12-09] MEDS ORDERED: MAGNESIUM SULF 1GRAM/DEXTROSE 100 ML IV ONE ×2 (01:35→06:41)
[2021-12-09] MEDS: ONDANSETRON HCL INJ 2MG/ML 2ML 2 MG/ML VIAL IV PRN ×2 (02:23→08:02)
[2021-12-09] MEDS ORDERED: METOCLOPRAMIDE HCL 10 MG/2ML VIAL IV ONE (02:30)
[2021-12-09] MEDS ORDERED: METOCLOPRAMIDE HCL 10 MG/2ML VIAL ONE (02:40)
[2021-12-09] MEDS: DEXTROSE 5%/0.45% SOD CHL 1,000 ML IV SCH (03:25)
[2021-12-09] MEDS: GABAPENTIN 400 MG CAP PO SCH ×3 (05:01→21:29)
[2021-12-09 05:09] LABS: BASOPHILS # (AUTO) 0.1 (0.0-0.1); BASOPHILS % 0.8 % (0.0-1.0); EOSINOPHILS # (AUTO) 0.3 (0.0-0.4); HEMOGLOBIN 8.3 g/dL (14.0-18.0); LYMPHOCYTES # (AUTO) 1.2 (1.0-3.2); LYMPHOCYTES % 18.8 % (18.0-39.1); MEAN CORPUSCULAR HGB CONC 30.7 g/dL (31-35); MEAN CORPUSCULAR VOLUME 81.3 fL (81-99); MONOCYTES # (AUTO) 0.6 (0.2-0.8); MONOCYTES % 8.7 % (4.4-11.3); NEUTROPHILS # (AUTO) 4.2 (2.1-6.9); NEUTROPHILS % 67.2 % (38.7-80.0); PLATELET COUNT 307 x10e3/uL (140-360); RED BLOOD COUNT 3.32 x10e6/uL (4.3-5.7); RED CELL DISTRIBUTION WIDTH 14.7 % (11.7-14.4)
[2021-12-09] MEDS: MEROPENEM 1 GM in SODIUM CHLORIDE 0.9% 100 ML IV SCH ×3 (05:11→15:53)
[2021-12-09 05:29] LABS: ANION GAP 8.4 mmol/L (8-16); CREATININE, SERUM 0.69 mg/dL (0.72-1.25); MAGNESIUM 1.3 MG/DL (1.3-2.1)
[2021-12-09 05:34] LABS: CALCIUM 5.4 mg/dL (8.4-10.2); POTASSIUM 2.4 mmol/L (3.5-5.1)
[2021-12-09 05:49] LABS: CREATINE KINASE 45 IU/L (30-200)
[2021-12-09] MEDS ORDERED: POTASSIUM CHLORIDE 20MEQ/100ML 200 ML ONE (06:38)
[2021-12-09] MEDS ORDERED: MAGNESIUM SULFATE 2GM/50ML 0 ML IV ONE (06:39)
[2021-12-09] MEDS: METOCLOPRAMIDE HCL 10 MG/2ML VIAL IV SCH ×3 (08:02→20:32)
[2021-12-09 09:15] LABS: ANION GAP 12.3 mmol/L (8-16); CALCIUM 8.1 mg/dL (8.4-10.2); CREATININE, SERUM 1.08 mg/dL (0.72-1.25); MAGNESIUM 2.2 MG/DL (1.3-2.1); POTASSIUM 3.3 mmol/L (3.5-5.1)
[2021-12-09] MEDS ORDERED: INSULIN REGULAR, HUMAN 3ML VL 100 UNIT in SODIUM CHLORIDE 0.9% 99 ML IV SCH ×2 (09:45)
[2021-12-09] MEDS ORDERED: DEXTROSE 50% SYRINGE 50 ML IV PRN (09:45)
[2021-12-09] MEDS ORDERED: ONDANSETRON HCL INJ 2MG/ML 2ML 2 MG/ML VIAL IV PRN (09:45)
[2021-12-09] MEDS: ASPIRIN 81 MG CHEW TAB PO SCH (10:01)
[2021-12-09] MEDS: CLOPIDOGREL BISULFATE 75 MG TAB PO SCH (10:01)
[2021-12-09] MEDS ORDERED: PROMETHAZINE 12.5MG/ NACL 0.9% 12.5 MG/50 ML BAG IV ONE (10:15)
[2021-12-09] MEDS ORDERED: POTASSIUM CHLORIDE 20MEQ/100ML 200 ML IV PRN (10:15)
[2021-12-09] MEDS ORDERED: PROMETHAZINE 25MG/ NS 50ML (IV) IV ONE ×2 (10:15→16:00)
[2021-12-09] MEDS ORDERED: MAGNESIUM SULF 1GRAM/DEXTROSE 100 ML IV PRN (10:15)
[2021-12-09] MEDS: POTASSIUM CHLORIDE 20MEQ/100ML 100 ML INJ PRN ×2 (11:11→21:35)
[2021-12-09] MEDS ORDERED: DEXTROSE 5%/0.45% SOD CHL 1,000 ML IV SCH (13:00)
[2021-12-09] MEDS ORDERED: LORAZEPAM INJ 2 MG/ML VIAL IV PRN (18:00)
[2021-12-09] MEDS ORDERED: SODIUM CHLORIDE 0.45% 1,000 ML IV SCH (18:15)
[2021-12-09 18:46] LABS: ANION GAP 14.4 mmol/L (8-16); CALCIUM 8.2 mg/dL (8.4-10.2); CREATININE, SERUM 1.02 mg/dL (0.72-1.25); MAGNESIUM 1.9 MG/DL (1.3-2.1); POTASSIUM 3.4 mmol/L (3.5-5.1)
[2021-12-09] MEDS ORDERED: DEXTROSE 5%/0.45% SOD CHL 1,000 ML IV ONE (22:15)
[2021-12-09 22:56] LABS: ANION GAP 15.3 mmol/L (8-16); BLOOD UREA NITROGEN < 5 mg/dL (7-26); CALCIUM 7.9 mg/dL (8.4-10.2); CARBON DIOXIDE 22 mmol/L (22-29); CHLORIDE 102 mmol/L (98-107); GLUCOSE 173 mg/dL (74-118); MAGNESIUM 1.9 MG/DL (1.3-2.1); POTASSIUM 3.3 mmol/L (3.5-5.1); SODIUM 136 mmol/L (136-145)
[2021-12-09 23:02] LABS: BUN/CREATININE RATIO 6 (6-25)
[2021-12-09 23:27] LABS: % IRON SATURATION 23 % (15-50); IRON 35 ug/dL (65-175); TOTAL IRON BINDING CAPACITY 150 ug/dL (261-478); TRANSFERRIN 107 mg/dL (174-364)
[2021-12-10] VITALS (20 sets, daily range): BP systolic 81–152; BP diastolic 68–94
[2021-12-10] MEDS: METOCLOPRAMIDE HCL 10 MG/2ML VIAL IV SCH ×4 (02:07→19:59)
[2021-12-10 02:30] LABS: ANION GAP 16.5 mmol/L (8-16); BLOOD UREA NITROGEN < 5 mg/dL (7-26); BUN/CREATININE RATIO 5 (6-25); CARBON DIOXIDE 23 mmol/L (22-29); CHLORIDE 100 mmol/L (98-107); CREATININE, SERUM 0.95 mg/dL (0.72-1.25); GLUCOSE 237 mg/dL (74-118); POTASSIUM 3.5 mmol/L (3.5-5.1); SODIUM 136 mmol/L (136-145)
[2021-12-10] MEDS: MEROPENEM 1 GM in SODIUM CHLORIDE 0.9% 100 ML IV SCH ×2 (04:30→16:03)
[2021-12-10 04:56] LABS: ALANINE AMINOTRANSFERASE 7 IU/L (0-55); ALBUMIN 2.2 g/dL (3.5-5.0); ALBUMIN/GLOBULIN RATIO 0.6 (0.8-2.0); ALKALINE PHOSPHATASE 91 IU/L (40-150); ANION GAP 14.4 mmol/L (8-16); BLOOD UREA NITROGEN < 5 mg/dL (7-26); CALCIUM 7.8 mg/dL (8.4-10.2); CARBON DIOXIDE 24 mmol/L (22-29); CHLORIDE 101 mmol/L (98-107); CREATININE, SERUM 1.04 mg/dL (0.72-1.25); GLUCOSE 283 mg/dL (74-118); POTASSIUM 3.4 mmol/L (3.5-5.1); SODIUM 136 mmol/L (136-145)
[2021-12-10 05:00] LABS: BUN/CREATININE RATIO 5 (6-25)
[2021-12-10] MEDS: GABAPENTIN 400 MG CAP PO SCH ×3 (06:00→20:33)
[2021-12-10] MEDS ORDERED: DEXTROSE 50% SYRINGE 50 ML IV PRN (07:00)
[2021-12-10] MEDS ORDERED: INSULIN REGULAR, HUMAN 100 UNIT/1 ML SQ ONE (07:00)
[2021-12-10] MEDS ORDERED: INSULIN REGULAR, HUMAN 100 UNIT/1 ML SQ SCH (08:00)
[2021-12-10] MEDS: CLOPIDOGREL BISULFATE 75 MG TAB PO SCH (08:12)
[2021-12-10] MEDS: ASPIRIN 81 MG CHEW TAB PO SCH (08:12)
[2021-12-10] MEDS: COLLAGENASE 5 GM TUBE TP SCH (08:12)
[2021-12-10] MEDS: BALSAM PERU/CASTOR OIL 60 GM OINT...G. TP SCH (08:13)
[2021-12-10] MEDS: ZINC SULFATE 220 MG CAP PO SCH ×2 (11:37→16:03)
[2021-12-10] MEDS: MAGNESIUM OXIDE 400 MG TAB PO SCH ×2 (11:37→16:03)
[2021-12-10] MEDS: ASCORBIC ACID 500 MG TAB PO SCH ×2 (11:37→16:03)
[2021-12-10] MEDS: IRON SUCROSE 100 MG in SODIUM CHLORIDE 0.9% 100 ML 100 ML IV SCH (11:37)
[2021-12-10] MEDS: MULTIVITAMINS/MINERALS TAB PO SCH (11:37)
[2021-12-10] MEDS: OYST-CAL-D 500MG TABLET PO SCH ×2 (11:37→16:03)
[2021-12-10] MEDS: INSULIN REGULAR, HUMAN 100 UNIT/1 ML SQ SCH ×4 (11:40→22:15)
[2021-12-10 14:42] LABS: ANION GAP 12.5 mmol/L (8-16); CALCIUM 7.8 mg/dL (8.4-10.2); CREATININE, SERUM 0.9 mg/dL (0.72-1.25); POTASSIUM 3.5 mmol/L (3.5-5.1)
[2021-12-10 18:23] LABS: ANION GAP 12.8 mmol/L (8-16); CALCIUM 8.2 mg/dL (8.4-10.2); CREATININE, SERUM 1.16 mg/dL (0.72-1.25); POTASSIUM 3.8 mmol/L (3.5-5.1)
[2021-12-10] MEDS: TRAMADOL HCL 50 MG TAB PO PRN (19:59)
[2021-12-10] MEDS: CHOLESTYRAMINE 4 GM PACKET PO SCH (21:54)
[2021-12-10] MEDS: INSULIN GLARGINE 100 UNITS/ML VIAL SQ SCH (22:14)
[2021-12-11] VITALS (21 sets, daily range): BP systolic 80–145; BP diastolic 62–102
[2021-12-11] MEDS: ZOLPIDEM TARTRATE 5 MG TAB PO PRN ×2 (00:15→22:12)
[2021-12-11] MEDS: INSULIN REGULAR, HUMAN 100 UNIT/1 ML SQ SCH ×6 (02:00→20:05)
[2021-12-11] MEDS: METOCLOPRAMIDE HCL 10 MG/2ML VIAL IV SCH ×2 (02:01→08:55)
[2021-12-11] MEDS: MEROPENEM 1 GM in SODIUM CHLORIDE 0.9% 100 ML IV SCH ×2 (04:37→16:12)
[2021-12-11 04:44] LABS: BASOPHILS # (AUTO) 0.1 (0.0-0.1); BASOPHILS % 1.1 % (0.0-1.0); EOSINOPHILS # (AUTO) 0.4 (0.0-0.4); EOSINOPHILS % 6.9 % (0.0-6.0); HEMATOCRIT 35.1 % (38.2-49.6); HEMOGLOBIN 10.7 g/dL (14.0-18.0); LYMPHOCYTES # (AUTO) 1.7 (1.0-3.2); LYMPHOCYTES % 27.9 % (18.0-39.1); MEAN CORPUSCULAR HEMOGLOBIN 24.6 pg (28-32); MEAN CORPUSCULAR HGB CONC 30.5 g/dL (31-35); MEAN CORPUSCULAR VOLUME 80.7 fL (81-99); MONOCYTES # (AUTO) 0.7 (0.2-0.8); NEUTROPHILS # (AUTO) 3.2 (2.1-6.9); NEUTROPHILS % 52.6 % (38.7-80.0); PLATELET COUNT 326 x10e3/uL (140-360); RED BLOOD COUNT 4.35 x10e6/uL (4.3-5.7); RED CELL DISTRIBUTION WIDTH 14.6 % (11.7-14.4)
[2021-12-11 05:19] LABS: ANION GAP 14.3 mmol/L (8-16); CALCIUM 8.2 mg/dL (8.4-10.2); CREATININE, SERUM 0.91 mg/dL (0.72-1.25); PHOSPHORUS 2.8 MG/DL (2.3-4.7); POTASSIUM 3.3 mmol/L (3.5-5.1)
[2021-12-11] MEDS: GABAPENTIN 400 MG CAP PO SCH ×3 (05:19→21:09)
[2021-12-11] MEDS: COLLAGENASE 5 GM TUBE TP SCH (09:09)
[2021-12-11] MEDS: CHOLESTYRAMINE 4 GM PACKET PO SCH ×4 (09:09→19:31)
[2021-12-11] MEDS: OYST-CAL-D 500MG TABLET PO SCH ×2 (09:10→16:24)
[2021-12-11] MEDS: ASCORBIC ACID 500 MG TAB PO SCH ×2 (09:10→16:17)
[2021-12-11] MEDS: CLOPIDOGREL BISULFATE 75 MG TAB PO SCH (09:10)
[2021-12-11] MEDS: FLUCONAZOLE 100 MG TAB PO SCH (09:11)
[2021-12-11] MEDS: ASPIRIN 81 MG CHEW TAB PO SCH (09:11)
[2021-12-11] MEDS: BALSAM PERU/CASTOR OIL 60 GM OINT...G. TP SCH (09:11)
[2021-12-11] MEDS: ZINC SULFATE 220 MG CAP PO SCH ×2 (09:11→16:18)
[2021-12-11] MEDS: MAGNESIUM OXIDE 400 MG TAB PO SCH ×2 (09:11→16:17)
[2021-12-11] MEDS: MULTIVITAMINS/MINERALS TAB PO SCH (09:11)
[2021-12-11] MEDS: IRON SUCROSE 100 MG in SODIUM CHLORIDE 0.9% 100 ML 100 ML IV SCH (09:46)
[2021-12-11] MEDS ORDERED: METOCLOPRAMIDE HCL 10 MG TAB PO SCH (11:30)
[2021-12-11] MEDS: POTASSIUM CHLORIDE 20MEQ/100ML 100 ML INJ PRN (13:00)
[2021-12-11] MEDS: TRAMADOL HCL 50 MG TAB PO PRN ×2 (13:35→21:41)
[2021-12-11] MEDS ORDERED: DEXTROSE 50% SYRINGE 50 ML IV PRN (14:30)
[2021-12-11] MEDS: METOCLOPRAMIDE HCL 10 MG TAB PO SCH ×2 (16:13→20:04)
[2021-12-11] MEDS: INSULIN GLARGINE 100 UNITS/ML VIAL SQ SCH (21:56)
[2021-12-12] VITALS (7 sets, daily range): BP systolic 97–167; BP diastolic 74–102
[2021-12-12] MEDS ORDERED: ZOLPIDEM TARTRATE 5 MG TAB PO ONE (02:30)
[2021-12-12] MEDS ORDERED: ZOLPIDEM TARTRATE 5 MG TAB ONE (02:37)
[2021-12-12] MEDS: MEROPENEM 1 GM in SODIUM CHLORIDE 0.9% 100 ML IV SCH ×2 (04:11→16:00)
[2021-12-12] MEDS: GABAPENTIN 400 MG CAP PO SCH ×3 (05:02→20:10)
[2021-12-12] MEDS: TRAMADOL HCL 50 MG TAB PO PRN ×2 (05:03→16:28)
[2021-12-12] MEDS: METOCLOPRAMIDE HCL 10 MG TAB PO SCH ×3 (05:03→20:10)
[2021-12-12] MEDS: INSULIN REGULAR, HUMAN 100 UNIT/1 ML SQ SCH ×2 (07:30→11:30)
[2021-12-12 08:19] LABS: BASOPHILS # (AUTO) 0.1 (0.0-0.1); BASOPHILS % 1.2 % (0.0-1.0); EOSINOPHILS # (AUTO) 0.4 (0.0-0.4); EOSINOPHILS % 6.2 % (0.0-6.0); HEMATOCRIT 34.1 % (38.2-49.6); HEMOGLOBIN 10.2 g/dL (14.0-18.0); LYMPHOCYTES # (AUTO) 2.1 (1.0-3.2); MEAN CORPUSCULAR HEMOGLOBIN 24.9 pg (28-32); MEAN CORPUSCULAR HGB CONC 29.9 g/dL (31-35); MEAN CORPUSCULAR VOLUME 83.2 fL (81-99); MONOCYTES # (AUTO) 0.5 (0.2-0.8); MONOCYTES % 8.1 % (4.4-11.3); NEUTROPHILS # (AUTO) 3.5 (2.1-6.9); NEUTROPHILS % 52.2 % (38.7-80.0); PLATELET COUNT 324 x10e3/uL (140-360); RED CELL DISTRIBUTION WIDTH 15.2 % (11.7-14.4)
[2021-12-12 08:41] LABS: ANION GAP 13.2 mmol/L (8-16); CALCIUM 8.2 mg/dL (8.4-10.2); MAGNESIUM 1.8 MG/DL (1.3-2.1); PHOSPHORUS 2.7 MG/DL (2.3-4.7); POTASSIUM 4.2 mmol/L (3.5-5.1)
[2021-12-12] MEDS: ASPIRIN 81 MG CHEW TAB PO SCH (09:00)
[2021-12-12] MEDS: CLOPIDOGREL BISULFATE 75 MG TAB PO SCH (09:00)
[2021-12-12] MEDS: FLUCONAZOLE 100 MG TAB PO SCH (09:16)
[2021-12-12] MEDS: ASCORBIC ACID 500 MG TAB PO SCH ×2 (09:16→17:00)
[2021-12-12] MEDS: BALSAM PERU/CASTOR OIL 60 GM OINT...G. TP SCH (09:16)
[2021-12-12] MEDS: IRON SUCROSE 100 MG in SODIUM CHLORIDE 0.9% 100 ML 100 ML IV SCH (09:16)
[2021-12-12] MEDS: ZINC SULFATE 220 MG CAP PO SCH ×2 (09:16→17:00)
[2021-12-12] MEDS: COLLAGENASE 5 GM TUBE TP SCH (09:16)
[2021-12-12] MEDS: MULTIVITAMINS/MINERALS TAB PO SCH (09:16)
[2021-12-12] MEDS: OYST-CAL-D 500MG TABLET PO SCH ×2 (09:16→17:00)
[2021-12-12] MEDS: CHOLESTYRAMINE 4 GM PACKET PO SCH ×4 (10:34→22:30)
[2021-12-12] MEDS ORDERED: SODIUM CHLORIDE 0.9% 250ML 250 ML ONE (15:37)
[2021-12-12] MEDS ORDERED: MULTIVITAMINS/MINERALS TAB PO SCH (17:00)
[2021-12-12] MEDS ORDERED: MAGNESIUM OXIDE 400 MG TAB PO ONE (17:25)
[2021-12-12] MEDS: ZOLPIDEM TARTRATE 5 MG TAB PO PRN (22:29)
[2021-12-13] VITALS (8 sets, daily range): BP systolic 91–121; BP diastolic 72–87
[2021-12-13] MEDS: MEROPENEM 1 GM in SODIUM CHLORIDE 0.9% 100 ML IV SCH ×2 (04:00→16:00)
[2021-12-13 06:00] LABS: BASOPHILS # (AUTO) 0.1 (0.0-0.1); BASOPHILS % 1.2 % (0.0-1.0); EOSINOPHILS # (AUTO) 0.4 (0.0-0.4); EOSINOPHILS % 5.4 % (0.0-6.0); HEMOGLOBIN 9.8 g/dL (14.0-18.0); LYMPHOCYTES # (AUTO) 2.4 (1.0-3.2); LYMPHOCYTES % 35.4 % (18.0-39.1); MEAN CORPUSCULAR HEMOGLOBIN 25.1 pg (28-32); MEAN CORPUSCULAR HGB CONC 30.6 g/dL (31-35); MEAN CORPUSCULAR VOLUME 82.1 fL (81-99); MONOCYTES # (AUTO) 0.6 (0.2-0.8); MONOCYTES % 9.2 % (4.4-11.3); NEUTROPHILS # (AUTO) 3.2 (2.1-6.9); NEUTROPHILS % 48.5 % (38.7-80.0); PLATELET COUNT 320 x10e3/uL (140-360); RED CELL DISTRIBUTION WIDTH 15.3 % (11.7-14.4)
[2021-12-13] MEDS: GABAPENTIN 400 MG CAP PO SCH ×3 (06:06→21:59)
[2021-12-13] MEDS: METOCLOPRAMIDE HCL 10 MG TAB PO SCH ×3 (06:06→21:59)
[2021-12-13 06:25] LABS: ALBUMIN 2.3 g/dL (3.5-5.0); ALBUMIN/GLOBULIN RATIO 0.6 (0.8-2.0); ANION GAP 13.6 mmol/L (8-16); CALCIUM 8.5 mg/dL (8.4-10.2); CREATININE, SERUM 0.84 mg/dL (0.72-1.25); MAGNESIUM 1.7 MG/DL (1.3-2.1); PHOSPHORUS 2.1 MG/DL (2.3-4.7); POTASSIUM 3.6 mmol/L (3.5-5.1)
[2021-12-13] MEDS ORDERED: BUPIVACAINE HC 0.75% PF 10ML VIAL INJ ONE (06:48)
[2021-12-13] MEDS ORDERED: DEXAMETHASONE SOD PHOS INJ 4 MG/ML SDV ONE (06:48)
[2021-12-13] MEDS ORDERED: Vancomycin IV 500 MG ONE (06:59)
[2021-12-13] MEDS: MULTIVITAMINS/MINERALS TAB PO SCH (09:00)
[2021-12-13] MEDS: IRON SUCROSE 100 MG in SODIUM CHLORIDE 0.9% 100 ML 100 ML IV SCH (09:00)
[2021-12-13] MEDS: ZINC SULFATE 220 MG CAP PO SCH ×2 (09:00→17:00)
[2021-12-13] MEDS: BALSAM PERU/CASTOR OIL 60 GM OINT...G. TP SCH (09:00)
[2021-12-13] MEDS: CHOLESTYRAMINE 4 GM PACKET PO SCH ×4 (09:00→20:50)
[2021-12-13] MEDS: COLLAGENASE 5 GM TUBE TP SCH (09:00)
[2021-12-13] MEDS: ASCORBIC ACID 500 MG TAB PO SCH ×2 (09:00→17:00)
[2021-12-13] MEDS: ASPIRIN 81 MG CHEW TAB PO SCH (09:00)
[2021-12-13] MEDS: FLUCONAZOLE 100 MG TAB PO SCH (09:00)
[2021-12-13] MEDS: CLOPIDOGREL BISULFATE 75 MG TAB PO SCH (09:00)
[2021-12-13] MEDS: OYST-CAL-D 500MG TABLET PO SCH ×2 (09:00→17:00)
[2021-12-13] MEDS: INSULIN REGULAR, HUMAN 100 UNIT/1 ML SQ SCH ×3 (11:30→21:42)
[2021-12-13] MEDS ORDERED: SEVOFLURANE INHAL SOLN 250 ML PEN BTL ONE (13:16)
[2021-12-13] MEDS ORDERED: POVIDONE IODINE 0.05% 0.05 % ML PO ONE (13:16)
[2021-12-13] MEDS ORDERED: PHENYLEPHRINE HCL 1% 10 MG/ML VIAL ONE (13:16)
[2021-12-13] MEDS ORDERED: PROPOFOL IV EMULSION 10 MG/ML 20 ML VIAL ONE (13:16)
[2021-12-13] MEDS ORDERED: LIDOCAINE HCL 2% LOCAL INJ 5 ML SDV VIAL INJ ONE (13:16)
[2021-12-13] MEDS ORDERED: ONDANSETRON HCL INJ 2MG/ML 2ML 2 MG/ML VIAL ONE (13:16)
[2021-12-13] MEDS: TRAMADOL HCL 50 MG TAB PO PRN (13:22)
[2021-12-13] MEDS ORDERED: FENTANYL CITRATE/PF 100MCG/2 ML INJ ONE (13:50)
[2021-12-13] MEDS ORDERED: MIDAZOLAM HCL 2 MG/2 ML VIAL ONE (13:50)
[2021-12-13] MEDS: HYDROCODONE/APAP 7.5MG-325MG 1 EA TAB PO PRN ×3 (14:30→23:31)
[2021-12-13] MEDS ORDERED: MAGNESIUM SULF 1GRAM/DEXTROSE 100 ML IV ONE (14:30)
[2021-12-13] MEDS ORDERED: POTASSIUM PHOSPHATE 10 MM in SODIUM CHLORIDE 0.9% 250ML 250 ML IV ONE (16:30)
[2021-12-13] MEDS: INSULIN GLARGINE 100 UNITS/ML VIAL SQ SCH (21:42)
[2021-12-13] MEDS ORDERED: DICYCLOMINE HCL 20 MG TAB PO ONE (23:30)
[2021-12-14] VITALS (8 sets, daily range): BP systolic 102–158; BP diastolic 72–97
[2021-12-14] MEDS: MEROPENEM 1 GM in SODIUM CHLORIDE 0.9% 100 ML IV SCH ×2 (03:29→17:05)
[2021-12-14] MEDS: GABAPENTIN 400 MG CAP PO SCH ×3 (05:30→22:00)
[2021-12-14] MEDS: METOCLOPRAMIDE HCL 10 MG TAB PO SCH ×2 (05:30→14:17)
[2021-12-14] MEDS: HYDROCODONE/APAP 7.5MG-325MG 1 EA TAB PO PRN ×2 (05:30→17:06)
[2021-12-14 06:33] LABS: BASOPHILS # (AUTO) 0.1 (0.0-0.1); BASOPHILS % 1.1 % (0.0-1.0); EOSINOPHILS # (AUTO) 0.3 (0.0-0.4); EOSINOPHILS % 4.1 % (0.0-6.0); HEMATOCRIT 29.7 % (38.2-49.6); LYMPHOCYTES # (AUTO) 1.9 (1.0-3.2); LYMPHOCYTES % 25.8 % (18.0-39.1); MEAN CORPUSCULAR HEMOGLOBIN 24.7 pg (28-32); MEAN CORPUSCULAR HGB CONC 30.3 g/dL (31-35); MEAN CORPUSCULAR VOLUME 81.4 fL (81-99); MONOCYTES % 12.9 % (4.4-11.3); NEUTROPHILS # (AUTO) 4.1 (2.1-6.9); NEUTROPHILS % 55.4 % (38.7-80.0); PLATELET COUNT 311 x10e3/uL (140-360); RED BLOOD COUNT 3.65 x10e6/uL (4.3-5.7); RED CELL DISTRIBUTION WIDTH 15.5 % (11.7-14.4)
[2021-12-14 06:52] LABS: ANION GAP 15.4 mmol/L (8-16); CREATININE, SERUM 0.96 mg/dL (0.72-1.25); MAGNESIUM 1.9 MG/DL (1.3-2.1); PHOSPHORUS 2.7 MG/DL (2.3-4.7); POTASSIUM 4.4 mmol/L (3.5-5.1)
[2021-12-14] MEDS: FLUCONAZOLE 100 MG TAB PO SCH (08:10)
[2021-12-14] MEDS: COLLAGENASE 5 GM TUBE TP SCH (08:10)
[2021-12-14] MEDS: INSULIN REGULAR, HUMAN 100 UNIT/1 ML SQ SCH ×4 (08:10→21:00)
[2021-12-14] MEDS: DICYCLOMINE HCL 20 MG TAB PO SCH ×4 (08:10→21:00)
[2021-12-14] MEDS: INSULIN GLARGINE 100 UNITS/ML VIAL SQ SCH ×2 (08:10→21:00)
[2021-12-14] MEDS: ASPIRIN 81 MG CHEW TAB PO SCH (08:10)
[2021-12-14] MEDS: ASCORBIC ACID 500 MG TAB PO SCH ×2 (08:11→17:05)
[2021-12-14] MEDS: MULTIVITAMINS/MINERALS TAB PO SCH (08:11)
[2021-12-14] MEDS: OYST-CAL-D 500MG TABLET PO SCH ×2 (08:11→17:05)
[2021-12-14] MEDS: ZINC SULFATE 220 MG CAP PO SCH ×2 (08:11→17:05)
[2021-12-14] MEDS: CLOPIDOGREL BISULFATE 75 MG TAB PO SCH (08:11)
[2021-12-14] MEDS: TRAMADOL HCL 50 MG TAB PO PRN (08:12)
[2021-12-14] MEDS: IRON SUCROSE 100 MG in SODIUM CHLORIDE 0.9% 100 ML 100 ML IV SCH (08:20)
[2021-12-14] MEDS: BALSAM PERU/CASTOR OIL 60 GM OINT...G. TP SCH (09:00)
[2021-12-14] MEDS: CHOLESTYRAMINE 4 GM PACKET PO SCH ×4 (10:04→21:00)
[2021-12-15] VITALS (8 sets, daily range): BP systolic 92–139; BP diastolic 65–93
[2021-12-15] MEDS: METOCLOPRAMIDE HCL 10 MG TAB PO SCH ×4 (00:17→21:27)
[2021-12-15] MEDS: HYDROCODONE/APAP 7.5MG-325MG 1 EA TAB PO PRN ×3 (01:18→16:50)
[2021-12-15] MEDS: MEROPENEM 1 GM in SODIUM CHLORIDE 0.9% 100 ML IV SCH ×2 (04:00→16:49)
[2021-12-15] MEDS: GABAPENTIN 400 MG CAP PO SCH ×3 (06:17→21:27)
[2021-12-15 07:09] LABS: BASOPHILS # (AUTO) 0.1 (0.0-0.1); BASOPHILS % 1.6 % (0.0-1.0); EOSINOPHILS # (AUTO) 0.3 (0.0-0.4); HEMATOCRIT 32.4 % (38.2-49.6); HEMOGLOBIN 9.6 g/dL (14.0-18.0); LYMPHOCYTES # (AUTO) 1.7 (1.0-3.2); LYMPHOCYTES % 26.1 % (18.0-39.1); MEAN CORPUSCULAR HGB CONC 29.6 g/dL (31-35); MEAN CORPUSCULAR VOLUME 84.4 fL (81-99); MONOCYTES # (AUTO) 0.9 (0.2-0.8); MONOCYTES % 13.2 % (4.4-11.3); NEUTROPHILS # (AUTO) 3.5 (2.1-6.9); NEUTROPHILS % 53.6 % (38.7-80.0); PLATELET COUNT 333 x10e3/uL (140-360); RED BLOOD COUNT 3.84 x10e6/uL (4.3-5.7); RED CELL DISTRIBUTION WIDTH 15.9 % (11.7-14.4)
[2021-12-15 07:27] LABS: CALCIUM 8.7 mg/dL (8.4-10.2); CREATININE, SERUM 0.85 mg/dL (0.72-1.25)
[2021-12-15] MEDS: INSULIN REGULAR, HUMAN 100 UNIT/1 ML SQ SCH ×4 (07:30→21:00)
[2021-12-15] MEDS: COLLAGENASE 5 GM TUBE TP SCH (08:36)
[2021-12-15] MEDS: BALSAM PERU/CASTOR OIL 60 GM OINT...G. TP SCH (08:36)
[2021-12-15] MEDS: DICYCLOMINE HCL 20 MG TAB PO SCH ×4 (08:41→21:27)
[2021-12-15] MEDS: FLUCONAZOLE 100 MG TAB PO SCH (08:41)
[2021-12-15] MEDS: ASPIRIN 81 MG CHEW TAB PO SCH (08:41)
[2021-12-15] MEDS: MULTIVITAMINS/MINERALS TAB PO SCH (08:41)
[2021-12-15] MEDS: INSULIN GLARGINE 100 UNITS/ML VIAL SQ SCH ×2 (08:41→21:38)
[2021-12-15] MEDS: OYST-CAL-D 500MG TABLET PO SCH ×2 (08:42→16:49)
[2021-12-15] MEDS: CLOPIDOGREL BISULFATE 75 MG TAB PO SCH (08:42)
[2021-12-15] MEDS: ZINC SULFATE 220 MG CAP PO SCH ×2 (08:42→16:49)
[2021-12-15] MEDS: ASCORBIC ACID 500 MG TAB PO SCH ×2 (08:42→16:49)
[2021-12-15] MEDS: IRON SUCROSE 100 MG in SODIUM CHLORIDE 0.9% 100 ML 100 ML IV SCH (08:44)
[2021-12-15] MEDS: CHOLESTYRAMINE 4 GM PACKET PO SCH ×4 (10:10→22:00)
[2021-12-16] MEDS: HYDROCODONE/APAP 7.5MG-325MG 1 EA TAB PO PRN ×2 (00:16→04:17)
[2021-12-16 01:01] VITALS: BP 131/88
[2021-12-16] MEDS: MEROPENEM 1 GM in SODIUM CHLORIDE 0.9% 100 ML IV SCH ×2 (04:16→16:00)
[2021-12-16 04:53] VITALS: BP 127/84
[2021-12-16] MEDS: GABAPENTIN 400 MG CAP PO SCH ×2 (05:32→14:00)
[2021-12-16] MEDS: METOCLOPRAMIDE HCL 10 MG TAB PO SCH ×2 (05:33→14:00)
[2021-12-16] MEDS: INSULIN REGULAR, HUMAN 100 UNIT/1 ML SQ SCH ×2 (07:30→11:30)
[2021-12-16 08:00] VITALS: BP 127/84
[2021-12-16 08:51] VITALS: BP 89/61
[2021-12-16] MEDS: FLUCONAZOLE 100 MG TAB PO SCH (08:55)
[2021-12-16] MEDS: DICYCLOMINE HCL 20 MG TAB PO SCH ×2 (08:55→13:00)
[2021-12-16] MEDS: MULTIVITAMINS/MINERALS TAB PO SCH (08:55)
[2021-12-16] MEDS: CLOPIDOGREL BISULFATE 75 MG TAB PO SCH (08:55)
[2021-12-16] MEDS: ASPIRIN 81 MG CHEW TAB PO SCH (08:55)
[2021-12-16] MEDS: OYST-CAL-D 500MG TABLET PO SCH (08:55)
[2021-12-16] MEDS: ASCORBIC ACID 500 MG TAB PO SCH (08:55)
[2021-12-16] MEDS: INSULIN GLARGINE 100 UNITS/ML VIAL SQ SCH (08:56)
[2021-12-16] MEDS: ZINC SULFATE 220 MG CAP PO SCH (08:56)
[2021-12-16] MEDS: CHOLESTYRAMINE 4 GM PACKET PO SCH ×2 (08:57→13:00)
[2021-12-16] MEDS: COLLAGENASE 5 GM TUBE TP SCH (09:00)
[2021-12-16] MEDS: IRON SUCROSE 100 MG in SODIUM CHLORIDE 0.9% 100 ML 100 ML IV SCH (09:00)
[2021-12-16] MEDS: BALSAM PERU/CASTOR OIL 60 GM OINT...G. TP SCH (09:00)
[2021-12-16 12:16] VITALS: BP 116/84
[2021-12-16] MEDS ORDERED: HYDROCODON-ACE1 EA12 PO (12:17)
[2021-12-16] MEDS ORDERED: DICYCLOMINE HCL20 MG PO (12:17)
[2021-12-16] MEDS ORDERED: Insulin Glargine SQ (12:17)
[2021-12-16] MEDS ORDERED: ASCORBIC ACID500 MG PO (12:17)
[2021-12-16] MEDS ORDERED: CHOLESTYRAMINE L4 GM PO (12:17)
[2021-12-16] MEDS ORDERED: HUMULIN R100 UNIT/2 SQ (12:17)
[2021-12-16] MEDS ORDERED: Calcium Carbonate PO (12:17)
[2021-12-16] MEDS ORDERED: Multivitamins/Minerals PO (12:17)
[2021-12-16] MEDS ORDERED: VENELEX OINTMEN60 GM TP (12:17)
[2021-12-16] MEDS ORDERED: ZINC SULFATE50 MG PO (12:17)
[2021-12-16] MEDS ORDERED: Collagenase TP (12:17)
[2021-12-16] MEDS ORDERED: ZYVOX600 MG PO (12:22)
[2021-12-16] MEDS ORDERED: ONDANSETRON ODT4 MG PO (12:22)
[2021-12-16] MEDS ORDERED: METOCLOPRAMIDE10 MG PO (12:33)
[2021-12-16] MEDS ORDERED: LINEZOLID 600 MG TAB PO ONE (13:30)
[2021-12-16] MEDS ORDERED: PANTOPRAZOLE SOD 40 MG TABEC PO SCH (16:30)
== END 2021-12-16 16:39 | disposition home health service (06) | DRG 240 ==
LOC: ER 14:20 → ERHOLD 17:31 → ICU 18:42 → MED/SURG2 12-12 11:47
PROVIDERS: ADMIT Internal Medicine; ATTEND Internal Medicine
PROC: 0Y6M0ZF Detachment at Right Foot, Partial 5th Ray, Open Approach (ICD-10-PCS; principal; 2021-12-13 06:58)
PROC: 0Y6M0ZD Detachment at Right Foot, Partial 4th Ray, Open Approach (ICD-10-PCS; principal; 2021-12-13 06:58)
PROC: 0Y6M0ZB Detachment at Right Foot, Partial 2nd Ray, Open Approach (ICD-10-PCS; principal; 2021-12-13 06:58)
PROC: 0Y6M0Z9 Detachment at Right Foot, Partial 1st Ray, Open Approach (ICD-10-PCS; principal; 2021-12-13 06:58)
PROC: 0Y6M0ZC Detachment at Right Foot, Partial 3rd Ray, Open Approach (ICD-10-PCS; principal; 2021-12-13 06:58)
DX: E11.52 Type 2 diabetes mellitus with diabetic peripheral angiopathy with gangrene (principal); R64 Cachexia; L97.419 Non-pressure chronic ulcer of right heel and midfoot with unspecified severity; I69.354 Hemiplegia and hemiparesis following cerebral infarction affecting left non-dominant side; B37.49 Other urogenital candidiasis; I96 Gangrene, not elsewhere classified; M86.171 Other acute osteomyelitis, right ankle and foot; Z16.24 Resistance to multiple antibiotics; E11.10 Type 2 diabetes mellitus with ketoacidosis without coma; I10 Essential (primary) hypertension; E11.42 Type 2 diabetes mellitus with diabetic polyneuropathy; M79.7 Fibromyalgia; E11.621 Type 2 diabetes mellitus with foot ulcer; Z68.23 Body mass index [BMI] 23.0-23.9, adult; Z79.4 Long term (current) use of insulin; Z89.421 Acquired absence of other right toe(s); Z20.822 Contact with and (suspected) exposure to COVID-19; N31.9 Neuromuscular dysfunction of bladder, unspecified; E87.6 Hypokalemia; E11.69 Type 2 diabetes mellitus with other specified complication; M21.071 Valgus deformity, not elsewhere classified, right ankle; E11.43 Type 2 diabetes mellitus with diabetic autonomic (poly)neuropathy; K31.84 Gastroparesis; R19.7 Diarrhea, unspecified; B95.7 Other staphylococcus as the cause of diseases classified elsewhere
CPT/HCPCS: 36415; 36600; 71045; 76700; 80048; 80053; 81001; 82270; 82550; 82553; 82607; 82746; 82805; 82948; 83540; 83605; 83690; 83735; 84100; 84466; 84484; 85025; 85045; 85610; 85730; 87040; 87071; 87075; 87086; 87186; 87205; 88304; 88307; 88311; 93005; 94799; 96372; 99251; 99284; C1713; J1100; J1756; J1815; J1817; J2001; J2060; J2185; J2250; J2370; J2405; J2550; J2765; J3010; J3370; J3475; J3480; J7030; J7050; J7799

== ENCOUNTER 2022-02-27 11:39 | Inpatient (IN) | payer OTHER ==
[~2022-02-27] VITALS: Ht 170.2 cm; Wt 67.6 kg
[~2022-02-27 11:39] MED LIST changes: +ASCORBIC ACID500 MG PO; +CHOLESTYRAMINE L4 GM PO; +Calcium Carbonate PO; +Collagenase TP; +DICYCLOMINE HCL20 MG PO; +HUMULIN R100 UNIT/2 SQ; +HYDROCODON-ACE1 EA12 PO; +Insulin Glargine SQ; +METOCLOPRAMIDE10 MG PO; +Multivitamins/Minerals PO; +ONDANSETRON ODT4 MG PO; +VENELEX OINTMEN60 GM TP; +ZINC SULFATE50 MG PO; +ZYVOX600 MG PO
[2022-02-27] MEDS ORDERED: PIPERACILLIN/TAZOBACTAM 4.5 GM in SODIUM CHLORIDE 0.9% 100 ML IV SCH ×3 (12:30→21:00)
[2022-02-27] MEDS ORDERED: Vancomycin IV 1 GM in SODIUM CHLORIDE 0.9% 250ML 250 ML IV SCH ×2 (12:30→14:15)
[2022-02-27 13:00] LABS: BASOPHILS # (AUTO) 0.1 (0.0-0.1); BASOPHILS % 0.4 % (0.0-1.0); EOSINOPHILS # (AUTO) 0.1 (0.0-0.4); EOSINOPHILS % 0.8 % (0.0-6.0); HEMATOCRIT 31.4 % (38.2-49.6); HEMOGLOBIN 9.9 g/dL (14.0-18.0); LYMPHOCYTES # (AUTO) 0.9 (1.0-3.2); MEAN CORPUSCULAR HEMOGLOBIN 26.3 pg (28-32); MEAN CORPUSCULAR HGB CONC 31.5 g/dL (31-35); MEAN CORPUSCULAR VOLUME 83.3 fL (81-99); MONOCYTES # (AUTO) 1.2 (0.2-0.8); MONOCYTES % 10.7 % (4.4-11.3); NEUTROPHILS # (AUTO) 9.1 (2.1-6.9); PLATELET COUNT 317 x10e3/uL (140-360); RED BLOOD COUNT 3.77 x10e6/uL (4.3-5.7)
[2022-02-27 13:21] LABS: INR 0.98; PARTIAL THROMBOPLASTIN TIME 34.1 seconds (23.8-35.5); PROTHROMBIN TIME 13.9 seconds (11.9-14.5)
[2022-02-27 13:28] LABS: ALBUMIN 2.2 g/dL (3.5-5.0); ALBUMIN/GLOBULIN RATIO 0.5 (0.8-2.0); ANION GAP 23.4 mmol/L (8-16); CREATININE, SERUM 1.28 mg/dL (0.72-1.25); POTASSIUM 4.4 mmol/L (3.5-5.1)
[2022-02-27] MEDS ORDERED: SODIUM CHLORIDE 0.9% 1000ML 1,000 ML IV SCH (14:00)
[2022-02-27] MEDS ORDERED: INSULIN REGULAR, HUMAN 100 UNIT/1 ML SQ NR (14:00)
[2022-02-27] MEDS ORDERED: DEXTROSE 50% SYRINGE 50 ML IV PRN (14:15)
[2022-02-27] MEDS ORDERED: ONDANSETRON HCL INJ 2MG/ML 2ML 2 MG/ML VIAL IV PRN ×2 (14:15→17:30)
[2022-02-27] MEDS: INSULIN REGULAR, HUMAN 100 UNIT/1 ML SQ SCH ×2 (14:30→21:22)
[2022-02-27] MEDS: SODIUM CHLORIDE 0.9% 1000ML 1,000 ML IV SCH ×2 (14:30→18:39)
[2022-02-27 16:20] VITALS: BP 110/73
[2022-02-27 16:24] VITALS: BP 110/73
[2022-02-27 17:00] VITALS: BP 110/73
[2022-02-27] MEDS ORDERED: ACETAMINOPHEN 325 MG TAB PO PRN (17:30)
[2022-02-27] MEDS ORDERED: TRULICITY1.5 MG/0.5 (17:41)
[2022-02-27] MEDS ORDERED: METFORMIN HCL500 M1 PO (17:41)
[2022-02-27] MEDS ORDERED: ONDANSETRON HCL 4 MG ORAL DISINTEGRATING TAB PO PRN (18:30)
[2022-02-27 19:42] VITALS: BP 110/73
[2022-02-27 20:00] VITALS: BP 150/84
[2022-02-27] MEDS: INSULIN GLARGINE 100 UNITS/ML VIAL SQ SCH (21:20)
[2022-02-27] MEDS: HEPARIN SOD (PORCINE) 5,000 UNIT/ML VIAL SC SCH (21:50)
[2022-02-27] MEDS ORDERED: LOPERAMIDE HCL 2 MG CAP PO ONE (22:15)
[2022-02-28] VITALS (8 sets, daily range): BP systolic 125–157; BP diastolic 75–88
[2022-02-28] MEDS: Vancomycin IV 1 GM in SODIUM CHLORIDE 0.9% 250ML 250 ML IV SCH ×2 (01:19→13:26)
[2022-02-28] MEDS: PIPERACILLIN/TAZOBACTAM 4.5 GM in SODIUM CHLORIDE 0.9% 100 ML IV SCH ×4 (03:21→21:27)
[2022-02-28] MEDS ORDERED: SODIUM CHLORIDE 0.9% 100 ML ONE (03:32)
[2022-02-28] MEDS: LOPERAMIDE HCL 2 MG CAP PO PRN ×2 (05:46→21:28)
[2022-02-28] MEDS: HEPARIN SOD (PORCINE) 5,000 UNIT/ML VIAL SC SCH ×3 (05:52→22:00)
[2022-02-28] MEDS: Morphine 4mg INJECTION 4 MG/ML INJ IV PRN ×3 (06:41→21:28)
[2022-02-28] MEDS: SODIUM CHLORIDE 0.9% 1000ML 1,000 ML IV SCH ×2 (06:41→14:15)
[2022-02-28 06:49] LABS: BASOPHILS % 0.5 % (0.0-1.0); EOSINOPHILS # (AUTO) 0.2 (0.0-0.4); EOSINOPHILS % 2.7 % (0.0-6.0); HEMATOCRIT 30.8 % (38.2-49.6); HEMOGLOBIN 9.4 g/dL (14.0-18.0); LYMPHOCYTES # (AUTO) 1.4 (1.0-3.2); LYMPHOCYTES % 18.4 % (18.0-39.1); MEAN CORPUSCULAR HEMOGLOBIN 25.9 pg (28-32); MEAN CORPUSCULAR HGB CONC 30.5 g/dL (31-35); MEAN CORPUSCULAR VOLUME 84.8 fL (81-99); MONOCYTES # (AUTO) 0.9 (0.2-0.8); MONOCYTES % 11.5 % (4.4-11.3); NEUTROPHILS # (AUTO) 5.1 (2.1-6.9); NEUTROPHILS % 65.6 % (38.7-80.0); PLATELET COUNT 385 x10e3/uL (140-360); RED BLOOD COUNT 3.63 x10e6/uL (4.3-5.7); RED CELL DISTRIBUTION WIDTH 14.9 % (11.7-14.4)
[2022-02-28] MEDS: INSULIN REGULAR, HUMAN 100 UNIT/1 ML SQ SCH ×4 (07:30→21:47)
[2022-02-28 07:37] LABS: ANION GAP 19.7 mmol/L (8-16); CREATININE, SERUM 1.02 mg/dL (0.72-1.25); POTASSIUM 3.7 mmol/L (3.5-5.1)
[2022-02-28 07:38] LABS: CALCIUM 8.4 mg/dL (8.4-10.2)
[2022-02-28 07:40] LABS: MAGNESIUM 1.9 MG/DL (1.3-2.1)
[2022-02-28 07:41] LABS: FERRITIN 434.32 ng/mL (21.81-274.66); THYROID STIMULATING HORMONE 1.073 uIU/mL (0.350-4.940)
[2022-02-28] MEDS: SENNOSIDES 8.6 MG TAB PO SCH (08:14)
[2022-02-28] MEDS: LACTOBACILLUS ACIDOPHILUS CAPSULE PO SCH ×3 (08:14→21:27)
[2022-02-28] MEDS: GABAPENTIN 400 MG CAP PO SCH ×2 (08:14→17:46)
[2022-02-28] MEDS: DOCUSATE SODIUM 100 MG CAP PO SCH (08:14)
[2022-02-28] MEDS: CLOPIDOGREL BISULFATE 75 MG TAB PO SCH (08:14)
[2022-02-28] MEDS: ASPIRIN 81 MG CHEW TAB PO SCH (08:14)
[2022-02-28] MEDS: INSULIN GLARGINE 100 UNITS/ML VIAL SQ SCH ×2 (08:15→21:43)
[2022-02-28] MEDS: ASCORBIC ACID 500 MG TAB PO SCH ×2 (08:15→17:46)
[2022-02-28] MEDS ORDERED: DEXAMETHASONE SOD PHOS INJ 4 MG/ML SDV ONE (10:46)
[2022-02-28] MEDS ORDERED: NEOSTIGMINE 1 MG/ML 10ML VIAL ONE (10:46)
[2022-02-28] MEDS ORDERED: BUPIVACAINE 0.25% 30ML SDV ONE (10:46)
[2022-02-28] MEDS ORDERED: ACETAMINOPHEN 1000 MG/100 ML 100 ML IV ONE (11:50)
[2022-02-28] MEDS ORDERED: Vancomycin IV 1 GM VIAL ONE (12:00)
[2022-02-28] MEDS ORDERED: ACETAMINOPHEN 1000 MG/100 ML IV ONE (12:48)
[2022-02-28] MEDS ORDERED: PROPOFOL IV EMULSION 10 MG/ML 20 ML VIAL ONE (12:48)
[2022-02-28] MEDS ORDERED: MIDAZOLAM HCL 2 MG/2 ML VIAL ONE (13:23)
[2022-02-28] MEDS ORDERED: FENTANYL CITRATE/PF 100MCG/2 ML INJ ONE (13:23)
[2022-03-01] VITALS (8 sets, daily range): BP systolic 81–166; BP diastolic 62–101
[2022-03-01] MEDS: Morphine 4mg INJECTION 4 MG/ML INJ IV PRN ×2 (01:33→05:58)
[2022-03-01] MEDS: Vancomycin IV 1 GM in SODIUM CHLORIDE 0.9% 250ML 250 ML IV SCH ×2 (01:35→13:33)
[2022-03-01] MEDS: SODIUM CHLORIDE 0.9% 1000ML 1,000 ML IV SCH ×2 (01:36→06:41)
[2022-03-01] MEDS: PIPERACILLIN/TAZOBACTAM 4.5 GM in SODIUM CHLORIDE 0.9% 100 ML IV SCH ×2 (03:18→08:04)
[2022-03-01] MEDS: HEPARIN SOD (PORCINE) 5,000 UNIT/ML VIAL SC SCH ×3 (05:57→21:55)
[2022-03-01 07:05] LABS: BASOPHILS # (AUTO) 0.1 (0.0-0.1); BASOPHILS % 0.7 % (0.0-1.0); EOSINOPHILS # (AUTO) 0.2 (0.0-0.4); EOSINOPHILS % 2.3 % (0.0-6.0); HEMATOCRIT 30.7 % (38.2-49.6); HEMOGLOBIN 9.7 g/dL (14.0-18.0); LYMPHOCYTES # (AUTO) 1.6 (1.0-3.2); LYMPHOCYTES % 17.4 % (18.0-39.1); MEAN CORPUSCULAR HEMOGLOBIN 26.1 pg (28-32); MEAN CORPUSCULAR HGB CONC 31.6 g/dL (31-35); MEAN CORPUSCULAR VOLUME 82.5 fL (81-99); MONOCYTES # (AUTO) 1.1 (0.2-0.8); MONOCYTES % 12.1 % (4.4-11.3); NEUTROPHILS # (AUTO) 6.1 (2.1-6.9); PLATELET COUNT 474 x10e3/uL (140-360); RED BLOOD COUNT 3.72 x10e6/uL (4.3-5.7); RED CELL DISTRIBUTION WIDTH 14.8 % (11.7-14.4)
[2022-03-01 07:48] LABS: ALBUMIN/GLOBULIN RATIO 0.5 (0.8-2.0); ANION GAP 15.6 mmol/L (8-16); CALCIUM 8.3 mg/dL (8.4-10.2); CREATININE, SERUM 1.05 mg/dL (0.72-1.25); MAGNESIUM 1.7 MG/DL (1.3-2.1); POTASSIUM 3.6 mmol/L (3.5-5.1)
[2022-03-01] MEDS: GABAPENTIN 400 MG CAP PO SCH ×2 (08:03→17:00)
[2022-03-01] MEDS: CLOPIDOGREL BISULFATE 75 MG TAB PO SCH (08:03)
[2022-03-01] MEDS: HYDROCODONE/APAP 7.5MG-325MG 1 EA TAB PO PRN ×3 (08:03→20:42)
[2022-03-01] MEDS: ASPIRIN 81 MG CHEW TAB PO SCH (08:03)
[2022-03-01] MEDS: LACTOBACILLUS ACIDOPHILUS CAPSULE PO SCH ×3 (08:04→20:42)
[2022-03-01] MEDS: ASCORBIC ACID 500 MG TAB PO SCH ×2 (08:04→17:00)
[2022-03-01] MEDS: INSULIN REGULAR, HUMAN 100 UNIT/1 ML SQ SCH ×4 (08:11→21:57)
[2022-03-01] MEDS: LOPERAMIDE HCL 2 MG CAP PO PRN (08:15)
[2022-03-01] MEDS ORDERED: INSULIN GLARGINE 100 UNITS/ML VIAL SQ SCH ×2 (09:00→21:00)
[2022-03-01] MEDS: SENNOSIDES 8.6 MG TAB PO SCH (09:00)
[2022-03-01] MEDS: DOCUSATE SODIUM 100 MG CAP PO SCH (09:00)
[2022-03-01] MEDS: CIPROFLOXACIN 400 MG/D5W 200ML 200 ML IV SCH ×2 (10:00→21:43)
[2022-03-01] MEDS ORDERED: INSULIN GLARGINE 100 UNITS/ML VIAL SQ ONE (10:30)
[2022-03-01] MEDS: INSULIN GLARGINE 100 UNITS/ML VIAL SQ SCH (21:00)
[2022-03-02] VITALS (8 sets, daily range): BP systolic 110–176; BP diastolic 63–105
[2022-03-02] MEDS: HYDROCODONE/APAP 7.5MG-325MG 1 EA TAB PO PRN ×4 (00:15→21:59)
[2022-03-02] MEDS: Vancomycin IV 1 GM in SODIUM CHLORIDE 0.9% 250ML 250 ML IV SCH ×2 (01:22→13:00)
[2022-03-02] MEDS: HEPARIN SOD (PORCINE) 5,000 UNIT/ML VIAL SC SCH ×3 (05:52→21:42)
[2022-03-02 06:59] LABS: BASOPHILS # (AUTO) 0.1 (0.0-0.1); BASOPHILS % 0.7 % (0.0-1.0); EOSINOPHILS # (AUTO) 0.3 (0.0-0.4); EOSINOPHILS % 2.4 % (0.0-6.0); HEMATOCRIT 32.2 % (38.2-49.6); HEMOGLOBIN 10.1 g/dL (14.0-18.0); LYMPHOCYTES # (AUTO) 1.9 (1.0-3.2); LYMPHOCYTES % 18.2 % (18.0-39.1); MEAN CORPUSCULAR HEMOGLOBIN 25.9 pg (28-32); MEAN CORPUSCULAR HGB CONC 31.4 g/dL (31-35); MEAN CORPUSCULAR VOLUME 82.6 fL (81-99); MONOCYTES # (AUTO) 0.8 (0.2-0.8); MONOCYTES % 8.1 % (4.4-11.3); NEUTROPHILS # (AUTO) 7.1 (2.1-6.9); NEUTROPHILS % 68.9 % (38.7-80.0); PLATELET COUNT 490 x10e3/uL (140-360); RED CELL DISTRIBUTION WIDTH 14.8 % (11.7-14.4)
[2022-03-02 07:19] LABS: ALBUMIN 2.1 g/dL (3.5-5.0); ALBUMIN/GLOBULIN RATIO 0.5 (0.8-2.0); ANION GAP 14.6 mmol/L (8-16); CALCIUM 8.5 mg/dL (8.4-10.2); CREATININE, SERUM 0.83 mg/dL (0.72-1.25); POTASSIUM 3.6 mmol/L (3.5-5.1)
[2022-03-02] MEDS: DOCUSATE SODIUM 100 MG CAP PO SCH (09:00)
[2022-03-02] MEDS: SENNOSIDES 8.6 MG TAB PO SCH (09:00)
[2022-03-02] MEDS: LACTOBACILLUS ACIDOPHILUS CAPSULE PO SCH ×3 (09:17→21:44)
[2022-03-02] MEDS: GABAPENTIN 400 MG CAP PO SCH ×2 (09:18→16:27)
[2022-03-02] MEDS: CLOPIDOGREL BISULFATE 75 MG TAB PO SCH (09:18)
[2022-03-02] MEDS: ASCORBIC ACID 500 MG TAB PO SCH ×2 (09:18→16:27)
[2022-03-02] MEDS: ASPIRIN 81 MG CHEW TAB PO SCH (09:18)
[2022-03-02] MEDS: CIPROFLOXACIN 400 MG/D5W 200ML 200 ML IV SCH ×2 (09:19→21:44)
[2022-03-02] MEDS: INSULIN REGULAR, HUMAN 100 UNIT/1 ML SQ SCH ×4 (09:53→21:43)
[2022-03-02] MEDS: INSULIN GLARGINE 100 UNITS/ML VIAL SQ SCH ×2 (09:53→21:42)
[2022-03-02] MEDS ORDERED: IOPAMIDOL 370 MG/ML 100 ML INFUS..BTL INJ ONE (15:53)
[2022-03-03] VITALS (7 sets, daily range): BP systolic 107–169; BP diastolic 69–108
[2022-03-03] MEDS: Vancomycin IV 1 GM in SODIUM CHLORIDE 0.9% 250ML 250 ML IV SCH (01:25)
[2022-03-03] MEDS: HEPARIN SOD (PORCINE) 5,000 UNIT/ML VIAL SC SCH ×3 (06:00→22:00)
[2022-03-03] MEDS: HYDROCODONE/APAP 7.5MG-325MG 1 EA TAB PO PRN ×3 (06:32→18:29)
[2022-03-03] MEDS: INSULIN REGULAR, HUMAN 100 UNIT/1 ML SQ SCH ×4 (08:20→21:00)
[2022-03-03] MEDS: INSULIN GLARGINE 100 UNITS/ML VIAL SQ SCH ×2 (08:20→21:00)
[2022-03-03] MEDS: LACTOBACILLUS ACIDOPHILUS CAPSULE PO SCH ×3 (08:28→21:00)
[2022-03-03] MEDS: DOCUSATE SODIUM 100 MG CAP PO SCH (08:29)
[2022-03-03] MEDS: ASPIRIN 81 MG CHEW TAB PO SCH (08:29)
[2022-03-03] MEDS: GABAPENTIN 400 MG CAP PO SCH ×2 (08:29→17:00)
[2022-03-03] MEDS: ASCORBIC ACID 500 MG TAB PO SCH ×2 (08:29→17:00)
[2022-03-03] MEDS: SENNOSIDES 8.6 MG TAB PO SCH (08:29)
[2022-03-03] MEDS: CLOPIDOGREL BISULFATE 75 MG TAB PO SCH (08:29)
[2022-03-03] MEDS: CIPROFLOXACIN 400 MG/D5W 200ML 200 ML IV SCH (08:35)
[2022-03-03] MEDS ORDERED: IOPAMIDOL 370 MG/ML 100 ML INFUS..BTL INJ ONE (13:50)
[2022-03-03] MEDS ORDERED: ALPRAZOLAM 1 MG TAB PO ONE (16:00)
[2022-03-03] MEDS: LOPERAMIDE HCL 2 MG CAP PO PRN (18:29)
[2022-03-03] MEDS: CIPROFLOXACIN 500 MG TAB PO SCH (21:00)
[2022-03-04 00:40] VITALS: BP 155/90
[2022-03-04 05:14] LABS: BASOPHILS # (AUTO) 0.1 (0.0-0.1); BASOPHILS % 0.7 % (0.0-1.0); EOSINOPHILS # (AUTO) 0.2 (0.0-0.4); EOSINOPHILS % 2.3 % (0.0-6.0); HEMOGLOBIN 9.1 g/dL (14.0-18.0); LYMPHOCYTES # (AUTO) 1.6 (1.0-3.2); LYMPHOCYTES % 18.8 % (18.0-39.1); MEAN CORPUSCULAR HEMOGLOBIN 25.6 pg (28-32); MEAN CORPUSCULAR HGB CONC 30.3 g/dL (31-35); MEAN CORPUSCULAR VOLUME 84.3 fL (81-99); MONOCYTES # (AUTO) 0.7 (0.2-0.8); MONOCYTES % 7.7 % (4.4-11.3); NEUTROPHILS % 68.7 % (38.7-80.0); PLATELET COUNT 631 x10e3/uL (140-360); RED BLOOD COUNT 3.56 x10e6/uL (4.3-5.7); RED CELL DISTRIBUTION WIDTH 14.8 % (11.7-14.4)
[2022-03-04] MEDS: HEPARIN SOD (PORCINE) 5,000 UNIT/ML VIAL SC SCH ×3 (05:28→22:00)
[2022-03-04 05:38] LABS: ALBUMIN 2.1 g/dL (3.5-5.0); ALBUMIN/GLOBULIN RATIO 0.4 (0.8-2.0); ANION GAP 16.7 mmol/L (8-16); CALCIUM 8.7 mg/dL (8.4-10.2); CREATININE, SERUM 0.83 mg/dL (0.72-1.25); MAGNESIUM 1.7 MG/DL (1.3-2.1); POTASSIUM 3.7 mmol/L (3.5-5.1)
[2022-03-04] MEDS: CIPROFLOXACIN 500 MG TAB PO SCH ×2 (07:53→21:05)
[2022-03-04] MEDS: CLOPIDOGREL BISULFATE 75 MG TAB PO SCH (07:53)
[2022-03-04] MEDS: LACTOBACILLUS ACIDOPHILUS CAPSULE PO SCH ×3 (07:53→16:56)
[2022-03-04] MEDS: SENNOSIDES 8.6 MG TAB PO SCH (07:53)
[2022-03-04] MEDS: ASPIRIN 81 MG CHEW TAB PO SCH (07:53)
[2022-03-04] MEDS: GABAPENTIN 400 MG CAP PO SCH ×2 (07:53→16:56)
[2022-03-04] MEDS: ASCORBIC ACID 500 MG TAB PO SCH ×2 (07:53→16:56)
[2022-03-04] MEDS: DOCUSATE SODIUM 100 MG CAP PO SCH (07:54)
[2022-03-04] MEDS: INSULIN REGULAR, HUMAN 100 UNIT/1 ML SQ SCH ×4 (08:00→21:00)
[2022-03-04 08:07] VITALS: BP 153/100
[2022-03-04 08:44] VITALS: BP 153/100
[2022-03-04] MEDS: INSULIN GLARGINE 100 UNITS/ML VIAL SQ SCH ×2 (10:37→21:00)
[2022-03-04 11:58] VITALS: BP 101/71
[2022-03-04] MEDS: HYDROCODONE/APAP 7.5MG-325MG 1 EA TAB PO PRN ×2 (12:56→21:06)
[2022-03-04 15:40] VITALS: BP 148/97
[2022-03-04 21:00] VITALS: BP 148/97
[2022-03-05] VITALS (8 sets, daily range): BP systolic 125–163; BP diastolic 87–96
[2022-03-05 05:15] LABS: BASOPHILS # (AUTO) 0.1 (0.0-0.1); BASOPHILS % 0.8 % (0.0-1.0); EOSINOPHILS # (AUTO) 0.2 (0.0-0.4); EOSINOPHILS % 2.1 % (0.0-6.0); HEMATOCRIT 30.5 % (38.2-49.6); HEMOGLOBIN 9.5 g/dL (14.0-18.0); LYMPHOCYTES # (AUTO) 1.9 (1.0-3.2); LYMPHOCYTES % 23.7 % (18.0-39.1); MEAN CORPUSCULAR HEMOGLOBIN 25.8 pg (28-32); MEAN CORPUSCULAR HGB CONC 31.1 g/dL (31-35); MEAN CORPUSCULAR VOLUME 82.9 fL (81-99); MONOCYTES # (AUTO) 0.7 (0.2-0.8); MONOCYTES % 9.1 % (4.4-11.3); NEUTROPHILS % 62.7 % (38.7-80.0); PLATELET COUNT 709 x10e3/uL (140-360); RED BLOOD COUNT 3.68 x10e6/uL (4.3-5.7); RED CELL DISTRIBUTION WIDTH 15.4 % (11.7-14.4)
[2022-03-05 05:51] LABS: ALBUMIN 2.1 g/dL (3.5-5.0); ALBUMIN/GLOBULIN RATIO 0.4 (0.8-2.0); ANION GAP 14.6 mmol/L (8-16); CALCIUM 8.5 mg/dL (8.4-10.2); CREATININE, SERUM 0.9 mg/dL (0.72-1.25); MAGNESIUM 1.6 MG/DL (1.3-2.1); POTASSIUM 3.6 mmol/L (3.5-5.1)
[2022-03-05] MEDS: HEPARIN SOD (PORCINE) 5,000 UNIT/ML VIAL SC SCH (06:00)
[2022-03-05] MEDS: HYDROCODONE/APAP 7.5MG-325MG 1 EA TAB PO PRN ×3 (06:10→23:00)
[2022-03-05] MEDS: INSULIN REGULAR, HUMAN 100 UNIT/1 ML SQ SCH ×4 (07:30→20:10)
[2022-03-05] MEDS: ASPIRIN 81 MG CHEW TAB PO SCH (08:52)
[2022-03-05] MEDS: CIPROFLOXACIN 500 MG TAB PO SCH ×2 (08:52→20:10)
[2022-03-05] MEDS: DOCUSATE SODIUM 100 MG CAP PO SCH (08:52)
[2022-03-05] MEDS: GABAPENTIN 400 MG CAP PO SCH ×2 (08:53→16:25)
[2022-03-05] MEDS: INSULIN GLARGINE 100 UNITS/ML VIAL SQ SCH ×2 (08:53→20:10)
[2022-03-05] MEDS: LACTOBACILLUS ACIDOPHILUS CAPSULE PO SCH ×3 (08:53→20:10)
[2022-03-05] MEDS: ASCORBIC ACID 500 MG TAB PO SCH ×2 (08:53→16:25)
[2022-03-05] MEDS: SENNOSIDES 8.6 MG TAB PO SCH (08:53)
[2022-03-05] MEDS: CLOPIDOGREL BISULFATE 75 MG TAB PO SCH (08:53)
[2022-03-05] MEDS ORDERED: LIDOCAINE HCL 1% LOCAL INJ 20 ML VIAL ONE (10:50)
[2022-03-05 13:57] LABS: BODY FLUID APPEARANCE CLOUDY; BODY FLUID COLOR RED
[2022-03-05 13:58] LABS: RBC,BODY FLUID 465000 cells/uL; WBC,BODY FLUID 67221 cells/uL
[2022-03-05 14:00] LABS: BODY FLUID TYPE OTHER
[2022-03-05 17:35] LABS: LYMPHOCYTES,BODY FLUID 2 %
[2022-03-05 17:36] LABS: NEUTROPHILS,BODY FLUID 96 %; OTHER CELLS,BODY FLUID 2 %
[2022-03-05] MEDS ORDERED: INSULIN REGULAR, HUMAN 100 UNIT/1 ML SQ ONE (21:45)
[2022-03-06] VITALS (7 sets, daily range): BP systolic 112–162; BP diastolic 78–94
[2022-03-06 06:01] LABS: BASOPHILS # (AUTO) 0.1 (0.0-0.1); BASOPHILS % 0.8 % (0.0-1.0); EOSINOPHILS # (AUTO) 0.2 (0.0-0.4); EOSINOPHILS % 2.3 % (0.0-6.0); HEMATOCRIT 30.5 % (38.2-49.6); HEMOGLOBIN 9.2 g/dL (14.0-18.0); LYMPHOCYTES # (AUTO) 1.8 (1.0-3.2); LYMPHOCYTES % 24.4 % (18.0-39.1); MEAN CORPUSCULAR HEMOGLOBIN 25.8 pg (28-32); MEAN CORPUSCULAR HGB CONC 30.2 g/dL (31-35); MEAN CORPUSCULAR VOLUME 85.4 fL (81-99); MONOCYTES # (AUTO) 0.6 (0.2-0.8); MONOCYTES % 8.5 % (4.4-11.3); NEUTROPHILS # (AUTO) 4.6 (2.1-6.9); NEUTROPHILS % 62.2 % (38.7-80.0); PLATELET COUNT 748 x10e3/uL (140-360); RED BLOOD COUNT 3.57 x10e6/uL (4.3-5.7); RED CELL DISTRIBUTION WIDTH 15.5 % (11.7-14.4)
[2022-03-06 06:23] LABS: ALBUMIN 2.1 g/dL (3.5-5.0); ALBUMIN/GLOBULIN RATIO 0.5 (0.8-2.0); ANION GAP 13.5 mmol/L (8-16); CALCIUM 8.6 mg/dL (8.4-10.2); CREATININE, SERUM 0.91 mg/dL (0.72-1.25); MAGNESIUM 1.7 MG/DL (1.3-2.1); POTASSIUM 4.5 mmol/L (3.5-5.1)
[2022-03-06] MEDS: CIPROFLOXACIN 500 MG TAB PO SCH ×2 (08:43→20:57)
[2022-03-06] MEDS: LACTOBACILLUS ACIDOPHILUS CAPSULE PO SCH ×3 (08:43→20:57)
[2022-03-06] MEDS: HYDROCODONE/APAP 7.5MG-325MG 1 EA TAB PO PRN ×2 (08:43→13:26)
[2022-03-06] MEDS: GABAPENTIN 400 MG CAP PO SCH ×2 (08:43→17:02)
[2022-03-06] MEDS: DOCUSATE SODIUM 100 MG CAP PO SCH (08:44)
[2022-03-06] MEDS: SENNOSIDES 8.6 MG TAB PO SCH (08:44)
[2022-03-06] MEDS: ASCORBIC ACID 500 MG TAB PO SCH ×2 (08:44→17:02)
[2022-03-06] MEDS: INSULIN GLARGINE 100 UNITS/ML VIAL SQ SCH ×2 (09:00→21:01)
[2022-03-06] MEDS: INSULIN REGULAR, HUMAN 100 UNIT/1 ML SQ SCH ×4 (10:07→21:01)
[2022-03-06] MEDS ORDERED: INSULIN REGULAR, HUMAN 100 UNIT/1 ML SQ ONE (13:30)
[2022-03-06] MEDS: CHOLESTYRAMINE 4 GM PACKET PO SCH (17:02)
[2022-03-07] VITALS (9 sets, daily range): BP systolic 121–165; BP diastolic 70–111
[2022-03-07 07:26] LABS: BASOPHILS # (AUTO) 0.1 (0.0-0.1); BASOPHILS % 0.8 % (0.0-1.0); EOSINOPHILS # (AUTO) 0.2 (0.0-0.4); EOSINOPHILS % 1.9 % (0.0-6.0); HEMATOCRIT 31.1 % (38.2-49.6); HEMOGLOBIN 9.4 g/dL (14.0-18.0); LYMPHOCYTES # (AUTO) 2.1 (1.0-3.2); LYMPHOCYTES % 19.3 % (18.0-39.1); MEAN CORPUSCULAR HGB CONC 30.2 g/dL (31-35); MEAN CORPUSCULAR VOLUME 86.1 fL (81-99); MONOCYTES % 9.4 % (4.4-11.3); NEUTROPHILS % 66.2 % (38.7-80.0); PLATELET COUNT 737 x10e3/uL (140-360); RED BLOOD COUNT 3.61 x10e6/uL (4.3-5.7); RED CELL DISTRIBUTION WIDTH 15.5 % (11.7-14.4)
[2022-03-07] MEDS: SENNOSIDES 8.6 MG TAB PO SCH (07:52)
[2022-03-07 08:13] LABS: ALBUMIN 2.4 g/dL (3.5-5.0); ALBUMIN/GLOBULIN RATIO 0.5 (0.8-2.0); ANION GAP 17.2 mmol/L (8-16); CALCIUM 8.6 mg/dL (8.4-10.2); CREATININE, SERUM 1.14 mg/dL (0.72-1.25); MAGNESIUM 1.7 MG/DL (1.3-2.1); POTASSIUM 4.2 mmol/L (3.5-5.1)
[2022-03-07] MEDS: INSULIN GLARGINE 100 UNITS/ML VIAL SQ SCH ×2 (08:18→20:54)
[2022-03-07] MEDS: INSULIN REGULAR, HUMAN 100 UNIT/1 ML SQ SCH ×4 (08:18→20:53)
[2022-03-07] MEDS: CHOLESTYRAMINE 4 GM PACKET PO SCH ×3 (08:51→23:22)
[2022-03-07] MEDS: GABAPENTIN 400 MG CAP PO SCH ×2 (08:51→17:26)
[2022-03-07] MEDS: CIPROFLOXACIN 500 MG TAB PO SCH (08:51)
[2022-03-07] MEDS: LACTOBACILLUS ACIDOPHILUS CAPSULE PO SCH ×3 (08:51→20:45)
[2022-03-07] MEDS: LABETALOL HCL 5 MG/ML 20ML VIAL IV PRN (08:51)
[2022-03-07] MEDS: ASCORBIC ACID 500 MG TAB PO SCH ×2 (08:51→17:26)
[2022-03-07] MEDS: DOCUSATE SODIUM 100 MG CAP PO SCH (08:55)
[2022-03-07] MEDS: VANCOMYCIN HCL 125 MG CAPSULE PO SCH ×3 (12:22→23:22)
[2022-03-07] MEDS: HYDROCODONE/APAP 7.5MG-325MG 1 EA TAB PO PRN ×3 (14:30→23:23)
[2022-03-07] MEDS: LOPERAMIDE HCL 2 MG CAP PO PRN ×2 (17:26→23:23)
[2022-03-08] VITALS (8 sets, daily range): BP systolic 106–163; BP diastolic 73–100
[2022-03-08] MEDS: VANCOMYCIN HCL 125 MG CAPSULE PO SCH ×3 (06:02→17:05)
[2022-03-08] MEDS: LACTOBACILLUS ACIDOPHILUS CAPSULE PO SCH ×3 (09:16→20:34)
[2022-03-08] MEDS: GABAPENTIN 400 MG CAP PO SCH ×2 (09:17→17:05)
[2022-03-08] MEDS: CHOLESTYRAMINE 4 GM PACKET PO SCH ×3 (09:17→22:34)
[2022-03-08] MEDS: HYDROCODONE/APAP 7.5MG-325MG 1 EA TAB PO PRN ×3 (09:20→21:18)
[2022-03-08] MEDS: METFORMIN HCL 500 MG TAB CR PO SCH (09:21)
[2022-03-08] MEDS: ASCORBIC ACID 500 MG TAB PO SCH ×2 (09:21→17:05)
[2022-03-08] MEDS: LOSARTAN POTASSIUM 25 MG TAB PO SCH (10:35)
[2022-03-08] MEDS: INSULIN REGULAR, HUMAN 100 UNIT/1 ML SQ SCH ×4 (11:30→21:51)
[2022-03-08] MEDS: INSULIN GLARGINE 100 UNITS/ML VIAL SQ SCH ×2 (12:43→21:52)
[2022-03-08] MEDS: LOPERAMIDE HCL 2 MG CAP PO PRN (18:25)
[2022-03-09] VITALS (9 sets, daily range): BP systolic 109–141; BP diastolic 67–89
[2022-03-09] MEDS: VANCOMYCIN HCL 125 MG CAPSULE PO SCH ×2 (00:24→05:48)
[2022-03-09] MEDS: HYDROCODONE/APAP 7.5MG-325MG 1 EA TAB PO PRN ×3 (05:47→21:17)
[2022-03-09 06:06] LABS: BASOPHILS # (AUTO) 0.1 (0.0-0.1); BASOPHILS % 0.8 % (0.0-1.0); EOSINOPHILS # (AUTO) 0.2 (0.0-0.4); HEMATOCRIT 29.6 % (38.2-49.6); LYMPHOCYTES # (AUTO) 2.9 (1.0-3.2); LYMPHOCYTES % 23.8 % (18.0-39.1); MEAN CORPUSCULAR HEMOGLOBIN 25.7 pg (28-32); MEAN CORPUSCULAR HGB CONC 30.4 g/dL (31-35); MEAN CORPUSCULAR VOLUME 84.6 fL (81-99); MONOCYTES # (AUTO) 1.1 (0.2-0.8); MONOCYTES % 9.5 % (4.4-11.3); NEUTROPHILS # (AUTO) 7.2 (2.1-6.9); NEUTROPHILS % 60.2 % (38.7-80.0); PLATELET COUNT 673 x10e3/uL (140-360); RED CELL DISTRIBUTION WIDTH 15.6 % (11.7-14.4)
[2022-03-09 06:28] LABS: ALBUMIN 2.4 g/dL (3.5-5.0); ALBUMIN/GLOBULIN RATIO 0.5 (0.8-2.0); ANION GAP 15.2 mmol/L (8-16); CALCIUM 8.9 mg/dL (8.4-10.2); CREATININE, SERUM 1.06 mg/dL (0.72-1.25); MAGNESIUM 1.9 MG/DL (1.3-2.1); POTASSIUM 4.2 mmol/L (3.5-5.1)
[2022-03-09] MEDS: ASCORBIC ACID 500 MG TAB PO SCH ×2 (07:46→17:00)
[2022-03-09] MEDS: LACTOBACILLUS ACIDOPHILUS CAPSULE PO SCH ×3 (09:32→20:30)
[2022-03-09] MEDS: LOSARTAN POTASSIUM 25 MG TAB PO SCH (09:32)
[2022-03-09] MEDS: METFORMIN HCL 500 MG TAB CR PO SCH (09:32)
[2022-03-09] MEDS: CHOLESTYRAMINE 4 GM PACKET PO SCH ×3 (09:32→22:14)
[2022-03-09] MEDS: GABAPENTIN 400 MG CAP PO SCH ×2 (09:33→17:39)
[2022-03-09] MEDS: INSULIN REGULAR, HUMAN 100 UNIT/1 ML SQ SCH ×4 (10:10→21:20)
[2022-03-09] MEDS: INSULIN GLARGINE 100 UNITS/ML VIAL SQ SCH ×2 (10:10→21:21)
[2022-03-09] MEDS: LOPERAMIDE HCL 2 MG CAP PO PRN ×2 (15:28→21:12)
[2022-03-09] MEDS ORDERED: ALTEPLASE RECOMBINANT 2 MG/2 ML VIAL IV ONE (19:15)
[2022-03-10] VITALS (7 sets, daily range): BP systolic 127–168; BP diastolic 58–100
[2022-03-10] MEDS: INSULIN REGULAR, HUMAN 100 UNIT/1 ML SQ SCH ×5 (07:30→22:43)
[2022-03-10] MEDS: METFORMIN HCL 500 MG TAB CR PO SCH (09:00)
[2022-03-10] MEDS: INSULIN GLARGINE 100 UNITS/ML VIAL SQ SCH ×2 (09:00→21:24)
[2022-03-10] MEDS: LACTOBACILLUS ACIDOPHILUS CAPSULE PO SCH ×3 (09:00→21:23)
[2022-03-10] MEDS: LOSARTAN POTASSIUM 25 MG TAB PO SCH (09:00)
[2022-03-10] MEDS: ASCORBIC ACID 500 MG TAB PO SCH ×2 (09:00→16:23)
[2022-03-10] MEDS: ATORVASTATIN 40 MG TAB PO SCH (09:00)
[2022-03-10] MEDS: CHOLESTYRAMINE 4 GM PACKET PO SCH ×3 (09:56→21:23)
[2022-03-10] MEDS: ASPIRIN 81 MG CHEW TAB PO SCH (12:30)
[2022-03-10] MEDS: CLOPIDOGREL BISULFATE 75 MG TAB PO SCH (12:30)
[2022-03-10] MEDS ORDERED: LOSARTAN POTASSIUM 25 MG TAB PO NR (12:45)
[2022-03-10] MEDS ORDERED: INSULIN GLARGINE 100 UNITS/ML VIAL SQ SCH (21:00)
[2022-03-10] MEDS: LOPERAMIDE HCL 2 MG CAP PO PRN (21:23)
[2022-03-10] MEDS: LABETALOL HCL 5 MG/ML 20ML VIAL IV PRN (22:42)
[2022-03-11] VITALS: BP 97/62
[2022-03-11 04:00] VITALS: BP 144/87
[2022-03-11 08:18] VITALS: BP 139/82
[2022-03-11] MEDS: METFORMIN HCL 500 MG TAB CR PO SCH (08:20)
[2022-03-11] MEDS: CLOPIDOGREL BISULFATE 75 MG TAB PO SCH (08:21)
[2022-03-11] MEDS: ASPIRIN 81 MG CHEW TAB PO SCH (08:22)
[2022-03-11] MEDS: ATORVASTATIN 40 MG TAB PO SCH (08:22)
[2022-03-11] MEDS: ASCORBIC ACID 500 MG TAB PO SCH ×2 (08:22→17:00)
[2022-03-11] MEDS: HYDROCODONE/APAP 7.5MG-325MG 1 EA TAB PO PRN (08:22)
[2022-03-11] MEDS: CHOLESTYRAMINE 4 GM PACKET PO SCH ×2 (08:23→15:00)
[2022-03-11] MEDS: LACTOBACILLUS ACIDOPHILUS CAPSULE PO SCH ×2 (08:23→15:00)
[2022-03-11 08:30] VITALS: BP 139/82
[2022-03-11] MEDS: INSULIN REGULAR, HUMAN 100 UNIT/1 ML SQ SCH ×3 (08:33→16:30)
[2022-03-11] MEDS: INSULIN GLARGINE 100 UNITS/ML VIAL SQ SCH (08:33)
[2022-03-11] MEDS ORDERED: LOSARTAN POTASSIUM 25 MG TAB PO SCH (09:00)
[2022-03-11 12:00] VITALS: BP 135/92
[2022-03-11 16:30] VITALS: BP 137/83
[2022-03-11] MEDS ORDERED: HYDROCODON-ACE1 EA12 PO (17:34)
[2022-03-11] MEDS ORDERED: LOSARTAN POTASS50 MG PO (17:34)
[2022-03-11] MEDS ORDERED: ATORVASTATIN CA40 MG PO (17:34)
[2022-03-11] MEDS ORDERED: INSULIN GL100 UNIT/3 SC (17:39)
== END 2022-03-11 19:15 | disposition home or self-care (01) | DRG 854 ==
LOC: ER 11:47 → ERHOLD 14:10 → MED/SURG2 16:00
PROVIDERS: ADMIT Internal Medicine; ATTEND Internal Medicine
PROC: 3E03329 Introduction of Other Anti-infective into Peripheral Vein, Percutaneous Approach (ICD-10-PCS; 2022-02-27)
PROC: 0J9Q0ZZ Drainage of Right Foot Subcutaneous Tissue and Fascia, Open Approach (ICD-10-PCS; principal; 2022-02-28 11:35)
PROC: 0Y6M0ZF Detachment at Right Foot, Partial 5th Ray, Open Approach (ICD-10-PCS; principal; 2022-02-28 11:35)
PROC: 3E0102A Introduction of Anti-Infective Envelope into Subcutaneous Tissue, Open Approach (ICD-10-PCS; principal; 2022-02-28 11:35)
PROC: 0W9830Z Drainage of Chest Wall with Drainage Device, Percutaneous Approach (ICD-10-PCS; 2022-03-05)
PROC: 02HV33Z Insertion of Infusion Device into Superior Vena Cava, Percutaneous Approach (ICD-10-PCS; 2022-03-06)
DX: A41.02 Sepsis due to Methicillin resistant Staphylococcus aureus (principal); I76 Septic arterial embolism; J90 Pleural effusion, not elsewhere classified; L02.213 Cutaneous abscess of chest wall; L02.611 Cutaneous abscess of right foot; M86.171 Other acute osteomyelitis, right ankle and foot; M84.411A Pathological fracture, right shoulder, initial encounter for fracture; M84.48XA Pathological fracture, other site, initial encounter for fracture; M86.8X8 Other osteomyelitis, other site; N17.9 Acute kidney failure, unspecified; E11.69 Type 2 diabetes mellitus with other specified complication; E11.40 Type 2 diabetes mellitus with diabetic neuropathy, unspecified; E11.65 Type 2 diabetes mellitus with hyperglycemia; E78.5 Hyperlipidemia, unspecified; I69.334 Monoplegia of upper limb following cerebral infarction affecting left non-dominant side; I69.398 Other sequelae of cerebral infarction; D63.8 Anemia in other chronic diseases classified elsewhere; E11.42 Type 2 diabetes mellitus with diabetic polyneuropathy; E11.22 Type 2 diabetes mellitus with diabetic chronic kidney disease; I12.9 Hypertensive chronic kidney disease with stage 1 through stage 4 chronic kidney disease, or unspecified chronic kidney disease; N18.9 Chronic kidney disease, unspecified; N31.9 Neuromuscular dysfunction of bladder, unspecified; B95.61 Methicillin susceptible Staphylococcus aureus infection as the cause of diseases classified elsewhere; D50.9 Iron deficiency anemia, unspecified; M20.5X2 Other deformities of toe(s) (acquired), left foot; M20.42 Other hammer toe(s) (acquired), left foot; E11.621 Type 2 diabetes mellitus with foot ulcer; E11.649 Type 2 diabetes mellitus with hypoglycemia without coma; B96.4 Proteus (mirabilis) (morganii) as the cause of diseases classified elsewhere; S20.219A Contusion of unspecified front wall of thorax, initial encounter; I07.1 Rheumatic tricuspid insufficiency; Z89.421 Acquired absence of other right toe(s); Z91.19 Patient's noncompliance with other medical treatment and regimen; Z89.431 Acquired absence of right foot; Z96.651 Presence of right artificial knee joint; Z93.6 Other artificial openings of urinary tract status; Z20.822 Contact with and (suspected) exposure to COVID-19; W18.30XA Fall on same level, unspecified, initial encounter; Z79.82 Long term (current) use of aspirin; Z79.4 Long term (current) use of insulin
CPT/HCPCS: 36415; 36569; 71045; 71046; 71260; 74177; 74470; 75989; 76604; 76942; 80048; 80053; 80202; 82607; 82728; 82746; 82947; 82948; 83036; 83540; 83605; 83735; 84443; 84466; 85025; 85045; 85610; 85651; 85730; 86140; 87040; 87071; 87075; 87186; 87205; 87324; 87449; 89051; 93306; 93925; 96372; 99284; C1713; J0690; J1100; J1644; J1815; J1817; J2001; J2250; J2270; J2405; J2543; J2710; J2997; J3010; J3370; J7030; J7050; J7799; Q9967

== ENCOUNTER 2022-04-21 12:30 | Observation (INO) | payer OTHER ==
[2022-04-20] MEDS: SODIUM CHLORIDE 0.9% 1000ML 1,000 ML IV SCH (20:40)
[~2022-04-21] VITALS: Ht 185.4 cm; Wt 73.5 kg
[~2022-04-21 12:30] MED LIST changes: +ATORVASTATIN CA40 MG PO; +INSULIN GL100 UNIT/3 SC; +LOSARTAN POTASS50 MG PO; +METFORMIN HCL500 M1 PO; +TRULICITY1.5 MG/0.5
[2022-04-21] MEDS ORDERED: SODIUM CHLORIDE 0.9% 1000ML 1,000 ML IV SCH ×2 (13:15→14:45)
[2022-04-21 13:24] LABS: BASOPHILS # (AUTO) 0.1 (0.0-0.1); EOSINOPHILS # (AUTO) 0.1 (0.0-0.4); EOSINOPHILS % 1.6 % (0.0-6.0); HEMATOCRIT 44.2 % (38.2-49.6); HEMOGLOBIN 13.6 g/dL (14.0-18.0); LYMPHOCYTES # (AUTO) 1.4 (1.0-3.2); LYMPHOCYTES % 28.1 % (18.0-39.1); MEAN CORPUSCULAR HEMOGLOBIN 26.4 pg (28-32); MEAN CORPUSCULAR HGB CONC 30.8 g/dL (31-35); MEAN CORPUSCULAR VOLUME 85.8 fL (81-99); MONOCYTES # (AUTO) 0.4 (0.2-0.8); MONOCYTES % 7.5 % (4.4-11.3); NEUTROPHILS # (AUTO) 3.1 (2.1-6.9); NEUTROPHILS % 61.2 % (38.7-80.0); PLATELET COUNT 306 x10e3/uL (140-360); RED BLOOD COUNT 5.15 x10e6/uL (4.3-5.7); RED CELL DISTRIBUTION WIDTH 13.9 % (11.7-14.4)
[2022-04-21 13:42] LABS: ALBUMIN 3.9 g/dL (3.5-5.0); ANION GAP 20.2 mmol/L (8-16); CREATININE, SERUM 2.63 mg/dL (0.72-1.25); POTASSIUM 5.2 mmol/L (3.5-5.1)
[2022-04-21 15:25] LABS: CLARITY,URINE HAZY (CLEAR); COLOR,URINE YELLOW (YELLOW)
[2022-04-21 15:26] LABS: KETONES,URINE 1+ (NEGATIVE); LEUKOCYTE ESTERASE ,URINE TRACE (NEGATIVE); NITRITE,URINE NEGATIVE (NEGATIVE); PROTEIN,URINE DIPSTICK 1+ (NEGATIVE); URINE UROBILINOGEN 0.2 mg/dL (0.2 - 1)
[2022-04-21] MEDS ORDERED: INSULIN REGULAR, HUMAN 100 UNIT/1 ML IV ONE (15:30)
[2022-04-21 15:40] LABS: BACTERIA,URINE FEW /HPF; RBC,URINE 0-5 /HPF (0-5); WBC,URINE (MAN) 0-5 /HPF (0-5)
[2022-04-21 15:41] LABS: URIC ACID CRYSTALS,URINE MANY (FEW)
[2022-04-21 15:53] LABS: ABG HCO3 23 mmol/L (22-26); ABG PCO2 43 mmHg (35-45); ABG PH 7.33 (7.35-7.45); ABG PO2 100 mmHg (80-105); ABG TCO2 24
[2022-04-21] MEDS: SODIUM CHLORIDE 0.9% 1000ML 1,000 ML IV SCH (16:00)
[2022-04-21] MEDS ORDERED: ONDANSETRON HCL INJ 2MG/ML 2ML 2 MG/ML VIAL IV PRN ×2 (16:00→18:45)
[2022-04-21 16:42] LABS: ANION GAP 16.5 mmol/L (8-16); CALCIUM 7.9 mg/dL (8.4-10.2); CREATININE, SERUM 1.75 mg/dL (0.72-1.25); POTASSIUM 3.5 mmol/L (3.5-5.1)
[2022-04-21 16:52] LABS: CREATININE,URINE RANDOM 177.09 mg/dL (63-166); TOTAL PROTEIN, URINE 35.6 mg/dL (1-14)
[2022-04-21] MEDS ORDERED: DEXTROSE 50% SYRINGE 50 ML IV PRN (18:45)
[2022-04-21] MEDS ORDERED: ACETAMINOPHEN 325 MG TAB PO PRN (18:45)
[2022-04-21] MEDS: INSULIN GLARGINE 100 UNITS/ML VIAL SC SCH (18:45)
[2022-04-21 20:10] VITALS: BP 96/69
[2022-04-21 20:40] VITALS: BP 96/69
[2022-04-21] MEDS: INSULIN LISPRO 100 UNIT/1 ML 3ML VIAL SQ SCH (21:30)
[2022-04-21] MEDS ORDERED: DULOXETINE HCL60 MG PO (21:49)
[2022-04-21] MEDS ORDERED: HYDROCODON-ACE1 EAC9 PO (21:49)
[2022-04-21] MEDS ORDERED: PIOGLITAZONE30 MG PO (21:49)
[2022-04-21] MEDS ORDERED: GABAPENTIN600 MG PO (21:49)
[2022-04-21] MEDS: HYDROCODONE/APAP 7.5MG-325MG 1 EA TAB PO PRN (22:24)
[2022-04-22] VITALS: BP 92/64
[2022-04-22 04:00] VITALS: BP 110/72
[2022-04-22 04:55] LABS: BASOPHILS # (AUTO) 0.1 (0.0-0.1); BASOPHILS % 1.1 % (0.0-1.0); EOSINOPHILS # (AUTO) 0.2 (0.0-0.4); EOSINOPHILS % 3.5 % (0.0-6.0); HEMATOCRIT 35.3 % (38.2-49.6); HEMOGLOBIN 10.7 g/dL (14.0-18.0); LYMPHOCYTES # (AUTO) 1.8 (1.0-3.2); LYMPHOCYTES % 39.5 % (18.0-39.1); MEAN CORPUSCULAR HGB CONC 30.3 g/dL (31-35); MEAN CORPUSCULAR VOLUME 85.7 fL (81-99); MONOCYTES # (AUTO) 0.5 (0.2-0.8); MONOCYTES % 10.4 % (4.4-11.3); NEUTROPHILS % 45.1 % (38.7-80.0); PLATELET COUNT 248 x10e3/uL (140-360); RED BLOOD COUNT 4.12 x10e6/uL (4.3-5.7); RED CELL DISTRIBUTION WIDTH 13.9 % (11.7-14.4)
[2022-04-22 05:16] LABS: ALBUMIN 3.1 g/dL (3.5-5.0); ALKALINE PHOSPHATASE 70 IU/L (40-150); ANION GAP 14.4 mmol/L (8-16); BLOOD UREA NITROGEN 34 mg/dL (7-26); BUN/CREATININE RATIO 18 (6-25); CALCIUM 8.3 mg/dL (8.4-10.2); CARBON DIOXIDE 21 mmol/L (22-29); CHLORIDE 102 mmol/L (98-107); CREATININE, SERUM 1.88 mg/dL (0.72-1.25); GLUCOSE 255 mg/dL (74-118); POTASSIUM 4.4 mmol/L (3.5-5.1); SODIUM 133 mmol/L (136-145)
[2022-04-22] MEDS: SODIUM CHLORIDE 0.9% 1000ML 1,000 ML IV SCH (05:40)
[2022-04-22 05:47] LABS: ALANINE AMINOTRANSFERASE < 6 IU/L (0-55)
[2022-04-22] MEDS: INSULIN GLARGINE 100 UNITS/ML VIAL SC SCH (07:30)
[2022-04-22] MEDS: INSULIN LISPRO 100 UNIT/1 ML 3ML VIAL SQ SCH (07:30)
[2022-04-22] MEDS: HYDROCODONE/APAP 7.5MG-325MG 1 EA TAB PO PRN (07:45)
[2022-04-22 08:44] VITALS: BP 113/75
[2022-04-22] MEDS ORDERED: CLOPIDOGREL BISULFATE 75 MG TAB PO SCH (09:00)
[2022-04-22] MEDS ORDERED: ASCORBIC ACID 500 MG TAB PO SCH (09:00)
[2022-04-22] MEDS ORDERED: ASPIRIN 81 MG CHEW TAB PO SCH (09:00)
[2022-04-22 09:35] VITALS: BP 113/75
[2022-04-22] MEDS ORDERED: ONDANSETRON HCL 4 MG ORAL DISINTEGRATING TAB PO PRN (12:30)
== END 2022-04-22 12:40 | disposition home or self-care (01) ==
LOC: ER 12:35 → ERHOLD 15:59 → MED/SURG 20:06
PROVIDERS: ADMIT Internal Medicine; ATTEND Internal Medicine
DX: N17.0 Acute kidney failure with tubular necrosis (principal); E78.5 Hyperlipidemia, unspecified; E86.0 Dehydration; Z20.822 Contact with and (suspected) exposure to COVID-19; I10 Essential (primary) hypertension; E10.22 Type 1 diabetes mellitus with diabetic chronic kidney disease; E10.65 Type 1 diabetes mellitus with hyperglycemia; I12.9 Hypertensive chronic kidney disease with stage 1 through stage 4 chronic kidney disease, or unspecified chronic kidney disease; Z79.4 Long term (current) use of insulin; E87.20 Acidosis, unspecified; N18.32 Chronic kidney disease, stage 3b
CPT/HCPCS: 36415 ×2; 36600; 70450; 71045; 72125; 76770; 80048; 80053 ×2; 81001; 82570; 82805; 82948 ×2; 84156; 84484; 84550; 85025 ×2; 87086; 87186; 93005; 94799 ×2; 96372; 99284; G0378 ×2; J0696 ×2; J1815; J1817; J7030 ×2; U0002

== ENCOUNTER 2022-11-25 05:27 | Inpatient (IN) | payer OTHER ==
[2022-11-20 10:15] LABS: BASOPHILS # (AUTO) 0.1 (0.0-0.1); BASOPHILS % 1.2 % (0.0-1.0); EOSINOPHILS # (AUTO) 0.3 (0.0-0.4); EOSINOPHILS % 5.4 % (0.0-6.0); HEMATOCRIT 35.9 % (38.2-49.6); HEMOGLOBIN 11.4 g/dL (14.0-18.0); LYMPHOCYTES # (AUTO) 1.8 (1.0-3.2); LYMPHOCYTES % 29.5 % (18.0-39.1); MEAN CORPUSCULAR HEMOGLOBIN 26.1 pg (28-32); MEAN CORPUSCULAR HGB CONC 31.8 g/dL (31-35); MEAN CORPUSCULAR VOLUME 82.3 fL (81-99); MONOCYTES # (AUTO) 0.4 (0.2-0.8); NEUTROPHILS # (AUTO) 3.4 (2.1-6.9); NEUTROPHILS % 56.6 % (38.7-80.0); PLATELET COUNT 277 x10e3/uL (140-360); RED BLOOD COUNT 4.36 x10e6/uL (4.3-5.7); RED CELL DISTRIBUTION WIDTH 14.5 % (11.7-14.4)
[2022-11-20 10:32] LABS: ANION GAP 11.2 mmol/L (8-16); CALCIUM 9.2 mg/dL (8.4-10.2); CREATININE, SERUM 1.55 mg/dL (0.72-1.25); POTASSIUM 4.2 mmol/L (3.5-5.1)
[2022-11-25] VITALS (20 sets, daily range): BP systolic 63–103; BP diastolic 37–60; PULSE 109–115; RESP 14–31; TEMP 97.8; O2SAT 98–100
[~2022-11-25] VITALS: Ht 185.4 cm; Wt 78.9 kg
[~2022-11-25 05:27] MED LIST changes: +DULOXETINE HCL60 MG PO; +GABAPENTIN600 MG PO; +HUMALOG SC; +HYDROCODON-ACE1 EAC9 PO; +LEVEMIR100 UNIT/1 SC; +PIOGLITAZONE30 MG PO; -TRULICITY1.5 MG/0.5; +TRULICITY1.5 MG/0.5 SC
[2022-11-25] MEDS ORDERED: LACTATED RINGER'S 1,000 ML ONE (05:40)
[2022-11-25] MEDS ORDERED: CEFAZOLIN SODIUM 2 GM ONE ×2 (05:40→18:14)
[2022-11-25] MEDS ORDERED: DEXTROSE 5% 250ML 250 ML IV ONE (06:10)
[2022-11-25] MEDS ORDERED: ACETAMINOPHEN 1000 MG/100 ML 0 ML IV ONE (06:31)
[2022-11-25] MEDS ORDERED: ACETAMINOPHEN 1000 MG/100 ML 100 ML IV ONE ×2 (06:32→11:05)
[2022-11-25] MEDS ORDERED: THROMBIN FOR SOLN 5,000 UNIT VIAL ONE (07:34)
[2022-11-25] MEDS ORDERED: BUPIVACAINE HCL 0.25% 10ML MPF VIAL INJ ONE (07:45)
[2022-11-25] MEDS ORDERED: BUPIVACAINE 0.5%/EPI 30 ML SDV INJ ONE (07:45)
[2022-11-25] MEDS ORDERED: ALBUMIN 25% 12.5GM 50ML 50 ML IV ONE ×3 (09:44→11:14)
[2022-11-25] MEDS ORDERED: SODIUM CHLORIDE 0.9% 1000ML 1,000 ML ONE (10:53)
[2022-11-25] MEDS ORDERED: ONDANSETRON HCL INJ 2MG/ML 2ML 2 MG/ML VIAL IV PRN ×2 (11:00→16:30)
[2022-11-25] MEDS ORDERED: FENTANYL CITRATE/PF 100MCG/2 ML INJ ONE ×2 (11:05→13:18)
[2022-11-25] MEDS ORDERED: BUPIVACAINE HCL 0.5% INJ 30 ML VIAL INJ ONE (11:08)
[2022-11-25] MEDS ORDERED: EPINEPHRINE HCL 1:1000 1ML 1 MG/ML AMP ONE (11:08)
[2022-11-25 11:16] LABS: HEMATOCRIT 14.9 % (38.2-49.6); HEMOGLOBIN 4.3 g/dL (14.0-18.0)
[2022-11-25] MEDS ORDERED: ALBUMIN 25% 25GM 100ML 0.25 GM/ML BTL IV ONE (11:18)
[2022-11-25] MEDS ORDERED: LACTATED RINGER'S 1,000 ML INJ SCH (11:30)
[2022-11-25] MEDS ORDERED: SEVOFLURANE INHAL SOLN 250 ML PEN BTL ONE (12:56)
[2022-11-25] MEDS ORDERED: EPHEDRINE SULFATE INJ 50 MG/ML VIAL ONE (12:56)
[2022-11-25] MEDS ORDERED: POVIDONE IODINE 0.05% 0.05 % ML PO ONE (12:56)
[2022-11-25] MEDS ORDERED: PHENYLEPHRINE HCL 1% 10 MG/ML VIAL ONE (12:57)
[2022-11-25] MEDS ORDERED: ROCURONIUM BROMIDE 10 MG/ML 5ML VIAL IV ONE (12:57)
[2022-11-25] MEDS ORDERED: LIDOCAINE HCL 2% LOCAL INJ 5 ML SDV VIAL INJ ONE (12:57)
[2022-11-25] MEDS ORDERED: ONDANSETRON HCL INJ 2MG/ML 2ML 2 MG/ML VIAL ONE ×2 (12:57→13:52)
[2022-11-25] MEDS ORDERED: DEXAMETHASONE SOD PHOS INJ 4 MG/ML SDV ONE (12:57)
[2022-11-25] MEDS ORDERED: PROPOFOL IV EMULSION 10 MG/ML 20 ML VIAL ONE (12:57)
[2022-11-25] MEDS ORDERED: MIDAZOLAM HCL 2 MG/2 ML VIAL ONE (13:18)
[2022-11-25] MEDS ORDERED: CEFAZOLIN SODIUM 2 GM in SODIUM CHLORIDE 0.9% 100 ML IV SCH (14:00)
[2022-11-25 14:35] LABS: HEMATOCRIT 24.3 % (38.2-49.6); HEMOGLOBIN 7.8 g/dL (14.0-18.0)
[2022-11-25] MEDS ORDERED: SODIUM CHLORIDE 0.9% 1000ML 1,000 ML IV SCH (15:00)
[2022-11-25] MEDS ORDERED: DEXTROSE 50% SYRINGE 50 ML IV PRN (16:15)
[2022-11-25] MEDS: INSULIN REGULAR, HUMAN 100 UNIT/1 ML SQ SCH ×2 (16:30→21:34)
[2022-11-25 16:44] LABS: BASOPHILS % 0.2 % (0.0-1.0); EOSINOPHILS % 0.1 % (0.0-6.0); HEMOGLOBIN 7.3 g/dL (14.0-18.0); LYMPHOCYTES # (AUTO) 0.7 (1.0-3.2); LYMPHOCYTES % 6.2 % (18.0-39.1); MEAN CORPUSCULAR HEMOGLOBIN 26.4 pg (28-32); MEAN CORPUSCULAR HGB CONC 31.7 g/dL (31-35); MONOCYTES # (AUTO) 1.4 (0.2-0.8); MONOCYTES % 11.7 % (4.4-11.3); NEUTROPHILS # (AUTO) 9.5 (2.1-6.9); NEUTROPHILS % 81.2 % (38.7-80.0); PLATELET COUNT 160 x10e3/uL (140-360); RED BLOOD COUNT 2.77 x10e6/uL (4.3-5.7); RED CELL DISTRIBUTION WIDTH 16.5 % (11.7-14.4)
[2022-11-25 16:56] LABS: INR 1.12; PROTHROMBIN TIME 14.9 seconds (11.9-14.5)
[2022-11-25 16:57] LABS: PARTIAL THROMBOPLASTIN TIME 26.4 seconds (23.8-35.5)
[2022-11-25] MEDS: HYDROCODONE/APAP 5MG-325MG TAB PO SCH ×2 (18:00→18:22)
[2022-11-25] MEDS ORDERED: SODIUM CHLORIDE 0.9% 250ML 250 ML IV ONE ×2 (18:15→23:00)
[2022-11-25] MEDS ORDERED: HYDROCODONE/APAP 5MG-325MG TAB ONE (18:19)
[2022-11-25] MEDS: LACTATED RINGER'S 1,000 ML INJ SCH (21:31)
[2022-11-25 21:49] LABS: BASOPHILS % 0.1 % (0.0-1.0); LYMPHOCYTES # (AUTO) 0.9 (1.0-3.2); LYMPHOCYTES % 10.8 % (18.0-39.1); MEAN CORPUSCULAR HEMOGLOBIN 26.1 pg (28-32); MEAN CORPUSCULAR HGB CONC 31.8 g/dL (31-35); MONOCYTES # (AUTO) 1.1 (0.2-0.8); MONOCYTES % 13.3 % (4.4-11.3); NEUTROPHILS # (AUTO) 6.4 (2.1-6.9); NEUTROPHILS % 75.4 % (38.7-80.0); PLATELET COUNT 153 x10e3/uL (140-360); RED BLOOD COUNT 2.45 x10e6/uL (4.3-5.7); RED CELL DISTRIBUTION WIDTH 16.9 % (11.7-14.4)
[2022-11-25 21:50] LABS: HEMATOCRIT 20.1 % (38.2-49.6); HEMOGLOBIN 6.4 g/dL (14.0-18.0)
[2022-11-25 22:02] LABS: ALBUMIN/GLOBULIN RATIO 2.3 (0.8-2.0); ANION GAP 14.4 mmol/L (8-16); CREATININE, SERUM 1.37 mg/dL (0.72-1.25); MAGNESIUM 1.7 MG/DL (1.3-2.1); PHOSPHORUS 4.4 MG/DL (2.3-4.7); POTASSIUM 4.4 mmol/L (3.5-5.1)
[2022-11-25 22:17] LABS: CALCIUM 7.6 mg/dL (8.4-10.2)
[2022-11-26] VITALS (80 sets, daily range): BP systolic 76–113; BP diastolic 44–69; PULSE 94–113; RESP 10–32; TEMP 97.3–99.1; O2SAT 96–100
[2022-11-26] MEDS ORDERED: SODIUM CHLORIDE 0.9% 1000ML 250 ML IV ONE (00:45)
[2022-11-26] MEDS: INSULIN REGULAR, HUMAN 100 UNIT/1 ML SQ SCH ×2 (00:53→21:59)
[2022-11-26] MEDS ORDERED: VASOPRESSIN 60 UNIT in DEXTROSE 5% 50ML 50 ML IV PRN (01:15)
[2022-11-26] MEDS: CEFAZOLIN SODIUM 2 GM in SODIUM CHLORIDE 0.9% 100 ML IV SCH ×2 (02:28→09:33)
[2022-11-26] MEDS: HYDROCODONE/APAP 5MG-325MG TAB PO SCH ×2 (05:31)
[2022-11-26] MEDS ORDERED: DULAGLUTIDE 3 MG SC SCH (07:00)
[2022-11-26] MEDS ORDERED: ONDANSETRON HCL 4 MG ORAL DISINTEGRATING TAB PO PRN (07:00)
[2022-11-26 08:17] LABS: BASOPHILS % 0.5 % (0.0-1.0); EOSINOPHILS # (AUTO) 0.1 (0.0-0.4); HEMATOCRIT 23.9 % (38.2-49.6); HEMOGLOBIN 7.8 g/dL (14.0-18.0); LYMPHOCYTES # (AUTO) 1.1 (1.0-3.2); LYMPHOCYTES % 13.9 % (18.0-39.1); MEAN CORPUSCULAR HEMOGLOBIN 26.4 pg (28-32); MEAN CORPUSCULAR HGB CONC 32.6 g/dL (31-35); MEAN CORPUSCULAR VOLUME 80.7 fL (81-99); MONOCYTES # (AUTO) 1.3 (0.2-0.8); MONOCYTES % 16.4 % (4.4-11.3); NEUTROPHILS # (AUTO) 5.2 (2.1-6.9); NEUTROPHILS % 67.8 % (38.7-80.0); PLATELET COUNT 143 x10e3/uL (140-360); RED BLOOD COUNT 2.96 x10e6/uL (4.3-5.7); RED CELL DISTRIBUTION WIDTH 16.6 % (11.7-14.4)
[2022-11-26 08:47] LABS: ANION GAP 9.8 mmol/L (8-16); CREATININE, SERUM 0.9 mg/dL (0.72-1.25); POTASSIUM 3.8 mmol/L (3.5-5.1)
[2022-11-26] MEDS: INSULIN GLARGINE 100 UNITS/ML VIAL SQ SCH ×2 (09:00→17:00)
[2022-11-26] MEDS: GABAPENTIN 300 MG CAP PO SCH ×3 (09:00→21:00)
[2022-11-26] MEDS: LACTATED RINGER'S 1,000 ML INJ SCH ×2 (09:33→22:44)
[2022-11-26] MEDS: Morphine 4mg INJECTION 4 MG/ML INJ IV PRN ×2 (09:44→21:33)
[2022-11-26] MEDS ORDERED: Morphine 4mg INJECTION 4 MG/ML INJ IV PRN (12:00)
[2022-11-26] MEDS ORDERED: HYDROCODONE/APAP 5MG-325MG TAB PO SCH (12:00)
[2022-11-26] MEDS ORDERED: HYDROCODONE/APAP 10MG-325MG TAB PO PRN (12:00)
[2022-11-27] VITALS (34 sets, daily range): BP systolic 81–119; BP diastolic 48–96; PULSE 87–104; RESP 9–23; TEMP 98.4–99.8; O2SAT 92–100
[2022-11-27] MEDS: Morphine 4mg INJECTION 4 MG/ML INJ IV PRN (05:19)
[2022-11-27 06:49] LABS: BASOPHILS # (AUTO) 0.1 (0.0-0.1); BASOPHILS % 0.8 % (0.0-1.0); EOSINOPHILS # (AUTO) 0.2 (0.0-0.4); EOSINOPHILS % 2.2 % (0.0-6.0); HEMATOCRIT 21.8 % (38.2-49.6); HEMOGLOBIN 6.8 g/dL (14.0-18.0); LYMPHOCYTES # (AUTO) 1.5 (1.0-3.2); LYMPHOCYTES % 18.8 % (18.0-39.1); MEAN CORPUSCULAR HEMOGLOBIN 25.9 pg (28-32); MEAN CORPUSCULAR HGB CONC 31.2 g/dL (31-35); MEAN CORPUSCULAR VOLUME 82.9 fL (81-99); MONOCYTES # (AUTO) 1.1 (0.2-0.8); NEUTROPHILS % 63.8 % (38.7-80.0); PLATELET COUNT 148 x10e3/uL (140-360); RED BLOOD COUNT 2.63 x10e6/uL (4.3-5.7); RED CELL DISTRIBUTION WIDTH 16.9 % (11.7-14.4)
[2022-11-27 07:06] LABS: CALCIUM 8.2 mg/dL (8.4-10.2); CREATININE, SERUM 0.79 mg/dL (0.72-1.25); MAGNESIUM 1.8 MG/DL (1.3-2.1); PHOSPHORUS 2.1 MG/DL (2.3-4.7)
[2022-11-27] MEDS ORDERED: SODIUM CHLORIDE 0.9% 250ML 250 ML IV ONE (07:45)
[2022-11-27] MEDS: SENNA-S TABLET PO SCH (08:09)
[2022-11-27] MEDS: GABAPENTIN 300 MG CAP PO SCH ×3 (08:09→20:05)
[2022-11-27] MEDS: INSULIN REGULAR, HUMAN 100 UNIT/1 ML SQ SCH ×3 (08:11→22:49)
[2022-11-27] MEDS ORDERED: LOPERAMIDE HCL 2 MG CAP PO ONE (11:30)
[2022-11-27] MEDS ORDERED: SODIUM CHLORIDE 0.9% 250ML 250 ML ONE (11:55)
[2022-11-27] MEDS: HYDROCODONE/APAP 10MG-325MG TAB PO PRN ×2 (12:56→20:05)
[2022-11-27] MEDS: LACTATED RINGER'S 1,000 ML INJ SCH (16:44)
[2022-11-28] VITALS (10 sets, daily range): BP systolic 105–161; BP diastolic 63–87; PULSE 88–99; RESP 18–21; TEMP 97.7–99.3; O2SAT 93–99
[2022-11-28] MEDS: HYDROCODONE/APAP 10MG-325MG TAB PO PRN ×5 (00:16→21:18)
[2022-11-28] MEDS: LACTATED RINGER'S 1,000 ML INJ SCH (05:50)
[2022-11-28 06:49] LABS: BASOPHILS % 0.4 % (0.0-1.0); EOSINOPHILS # (AUTO) 0.3 (0.0-0.4); EOSINOPHILS % 3.7 % (0.0-6.0); HEMATOCRIT 23.2 % (38.2-49.6); HEMOGLOBIN 7.4 g/dL (14.0-18.0); LYMPHOCYTES # (AUTO) 1.4 (1.0-3.2); LYMPHOCYTES % 19.6 % (18.0-39.1); MEAN CORPUSCULAR HEMOGLOBIN 27.1 pg (28-32); MEAN CORPUSCULAR HGB CONC 31.9 g/dL (31-35); MONOCYTES # (AUTO) 0.9 (0.2-0.8); MONOCYTES % 12.6 % (4.4-11.3); NEUTROPHILS # (AUTO) 4.5 (2.1-6.9); NEUTROPHILS % 63.1 % (38.7-80.0); PLATELET COUNT 148 x10e3/uL (140-360); RED BLOOD COUNT 2.73 x10e6/uL (4.3-5.7); RED CELL DISTRIBUTION WIDTH 15.9 % (11.7-14.4)
[2022-11-28 07:08] LABS: ALBUMIN 2.3 g/dL (3.5-5.0); CALCIUM 8.2 mg/dL (8.4-10.2); CREATININE, SERUM 0.89 mg/dL (0.72-1.25)
[2022-11-28] MEDS: GABAPENTIN 300 MG CAP PO SCH ×3 (08:16→21:17)
[2022-11-28] MEDS: INSULIN REGULAR, HUMAN 100 UNIT/1 ML SQ SCH ×4 (08:25→21:23)
[2022-11-28] MEDS: SENNA-S TABLET PO SCH (08:27)
[2022-11-29] VITALS (8 sets, daily range): BP systolic 133–150; BP diastolic 75–79; PULSE 81–96; RESP 15–20; TEMP 98.3–99.1; O2SAT 98–100
[2022-11-29] MEDS: Morphine 2mg Syringe 2 MG/ML SYR IV PRN ×2 (00:11→21:35)
[2022-11-29 05:36] LABS: BASOPHILS % 0.5 % (0.0-1.0); EOSINOPHILS # (AUTO) 0.3 (0.0-0.4); HEMATOCRIT 23.6 % (38.2-49.6); HEMOGLOBIN 7.7 g/dL (14.0-18.0); LYMPHOCYTES # (AUTO) 1.4 (1.0-3.2); LYMPHOCYTES % 24.4 % (18.0-39.1); MEAN CORPUSCULAR HEMOGLOBIN 26.8 pg (28-32); MEAN CORPUSCULAR HGB CONC 32.6 g/dL (31-35); MEAN CORPUSCULAR VOLUME 82.2 fL (81-99); MONOCYTES # (AUTO) 0.7 (0.2-0.8); MONOCYTES % 11.6 % (4.4-11.3); NEUTROPHILS # (AUTO) 3.4 (2.1-6.9); NEUTROPHILS % 58.2 % (38.7-80.0); PLATELET COUNT 175 x10e3/uL (140-360); RED BLOOD COUNT 2.87 x10e6/uL (4.3-5.7)
[2022-11-29 05:51] LABS: ANION GAP 12.9 mmol/L (8-16); CALCIUM 8.9 mg/dL (8.4-10.2); CREATININE, SERUM 0.81 mg/dL (0.72-1.25); POTASSIUM 3.9 mmol/L (3.5-5.1)
[2022-11-29] MEDS: INSULIN REGULAR, HUMAN 100 UNIT/1 ML SQ SCH ×4 (07:30→22:18)
[2022-11-29] MEDS: GABAPENTIN 300 MG CAP PO SCH ×3 (08:09→21:35)
[2022-11-29] MEDS: SENNA-S TABLET PO SCH (08:09)
[2022-11-29] MEDS: HYDROCODONE/APAP 10MG-325MG TAB PO PRN ×4 (08:13→22:41)
[2022-11-30] VITALS (7 sets, daily range): BP systolic 117–158; BP diastolic 68–88; PULSE 73–99; RESP 16–20; TEMP 98–99.4; O2SAT 95–100
[2022-11-30] MEDS: HYDROCODONE/APAP 10MG-325MG TAB PO PRN ×5 (02:56→22:54)
[2022-11-30] MEDS: GABAPENTIN 300 MG CAP PO SCH ×3 (08:20→20:19)
[2022-11-30] MEDS: INSULIN REGULAR, HUMAN 100 UNIT/1 ML SQ SCH ×4 (08:28→20:28)
[2022-11-30] MEDS: SENNA-S TABLET PO SCH (08:29)
[2022-11-30] MEDS: ONDANSETRON HCL 4 MG ORAL DISINTEGRATING TAB PO PRN ×2 (20:19→22:54)
[2022-12-01 04:00] VITALS: BP 112/70; PULSE 87; RESP 20; TEMP 98.2; O2SAT 95
[2022-12-01] MEDS: HYDROCODONE/APAP 10MG-325MG TAB PO PRN ×2 (07:23→12:23)
[2022-12-01] MEDS: INSULIN REGULAR, HUMAN 100 UNIT/1 ML SQ SCH ×2 (07:30→12:26)
[2022-12-01 08:05] VITALS: BP 157/91; PULSE 97; RESP 20; TEMP 98.6; O2SAT 99
[2022-12-01] MEDS: GABAPENTIN 300 MG CAP PO SCH (09:32)
[2022-12-01] MEDS: SENNA-S TABLET PO SCH (09:32)
[2022-12-01 09:41] VITALS: BP 157/91; PULSE 97; RESP 20; TEMP 98.6; O2SAT 99
[2022-12-01 12:15] VITALS: BP 125/77; PULSE 90; RESP 19; TEMP 98; O2SAT 97
== END 2022-12-01 13:24 | disposition home or self-care (01) | DRG 920 ==
LOC: OR 05:27 → PACU V 10:43 → ICU 18:43 → OBSVTOIN 11-26 08:38 → MED/SURG 11-27 18:30
PROVIDERS: ADMIT Orthopaedic Surgery; ATTEND Orthopaedic Surgery
PROC: 30233N1 Transfusion of Nonautologous Red Blood Cells into Peripheral Vein, Percutaneous Approach (ICD-10-PCS; principal; 2022-11-26)
PROC: 02HV33Z Insertion of Infusion Device into Superior Vena Cava, Percutaneous Approach (ICD-10-PCS; principal; 2022-11-26)
DX: T81.19XA Other postprocedural shock, initial encounter (principal); D62 Acute posthemorrhagic anemia; N17.9 Acute kidney failure, unspecified; R00.0 Tachycardia, unspecified; I95.9 Hypotension, unspecified; K31.84 Gastroparesis; N31.9 Neuromuscular dysfunction of bladder, unspecified; I10 Essential (primary) hypertension; G89.29 Other chronic pain; E10.51 Type 1 diabetes mellitus with diabetic peripheral angiopathy without gangrene; E10.43 Type 1 diabetes mellitus with diabetic autonomic (poly)neuropathy; E10.65 Type 1 diabetes mellitus with hyperglycemia; Z99.3 Dependence on wheelchair; Z20.822 Contact with and (suspected) exposure to COVID-19; Z79.4 Long term (current) use of insulin; Z86.73 Personal history of transient ischemic attack (TIA), and cerebral infarction without residual deficits
CPT/HCPCS: 36415; 36569; 71045; 71046; 76000; 80048; 80053; 82948; 83036; 83735; 83880; 84100; 85014; 85018; 85025; 85610; 85730; 86850; 86900; 86920; 93005; 94799; 96372; C1713; G0378; J0171; J1100; J2001; J2250; J2270; J2370; J2405; J7030; J7050; J7070; P9016; P9047; Q0162

== ENCOUNTER → 2024-03-15 | Day surgery (SDC) | payer OTHER ==
[2024-03-08 13:07] LABS: BASOPHILS # (AUTO) 0.1 (0.0-0.1); BASOPHILS % 1.3 % (0.0-1.0); EOSINOPHILS # (AUTO) 0.6 (0.0-0.4); EOSINOPHILS % 7.2 % (0.0-6.0); HEMATOCRIT 36.1 % (38.2-49.6); HEMOGLOBIN 10.8 g/dL (14.0-18.0); LYMPHOCYTES # (AUTO) 1.4 (1.0-3.2); LYMPHOCYTES % 18.3 % (18.0-39.1); MEAN CORPUSCULAR HEMOGLOBIN 26.1 pg (28-32); MEAN CORPUSCULAR HGB CONC 29.9 g/dL (31-35); MEAN CORPUSCULAR VOLUME 87.2 fL (81-99); MONOCYTES # (AUTO) 0.6 (0.2-0.8); MONOCYTES % 7.2 % (4.4-11.3); NEUTROPHILS % 65.9 % (38.7-80.0); PLATELET COUNT 262 x10e3/uL (140-360); RED BLOOD COUNT 4.14 x10e6/uL (4.3-5.7); RED CELL DISTRIBUTION WIDTH 14.5 % (11.7-14.4); WHITE BLOOD COUNT 7.63 x10e3/uL (4.8-10.8)
[2024-03-08 13:24] LABS: ANION GAP 12.6 mmol/L (8-16); CALCIUM 9.2 mg/dL (8.4-10.2); CREATININE, SERUM 1.53 mg/dL (0.72-1.25); POTASSIUM 4.6 mmol/L (3.5-5.1)
[~2024-03-15] MED LIST changes: +CEFAZOLIN SODIUM 2 GM ONE; +DEXAMETHASONE SOD PHOS 10 MG/1 ML VIAL ONE; +DEXAMETHASONE SOD PHOS INJ 4 MG/ML SDV ONE; +EPHEDRINE SULFATE INJ 50 MG/ML VIAL ONE; +FENTANYL CITRATE/PF 100MCG/2 ML INJ ONE; +LACTATED RINGER'S 1,000 ML ONE; +LIDOCAINE HCL 2% LOCAL INJ 5 ML SDV VIAL INJ ONE; +MIDAZOLAM HCL 2 MG/2 ML VIAL ONE; +ONDANSETRON HCL INJ 2MG/ML 2ML 2 MG/ML VIAL ONE; +PHENYLEPHRINE HCL 1% 10 MG/ML VIAL ONE; +PROPOFOL IV EMULSION 10 MG/ML 20 ML VIAL ONE; +ROCURONIUM BROMIDE 10 MG/ML 5ML VIAL IV ONE; +ROPIVACAINE 0.5% 5 MG/ML 30 ML SDV ONE; +SEVOFLURANE INHAL SOLN 250 ML PEN BTL ONE; +SODIUM CHLORIDE 0.9% 0 ML ONE; +SODIUM CHLORIDE 0.9% 250ML 250 ML IV ONE; +SUGAMMADEX SODIUM 200 MG/2 ML VIAL IV ONE; +TRANEXAMIC ACID 0 ML ONE; +TRESIBA100 UNIT/1 SQ
[2024-03-15 10:55] VITALS: TEMP 97.6
[2024-03-15] MEDS: CEFTRIAXONE 1 GM VIAL ONE (11:12)
[2024-03-15 11:42] VITALS: BP 114/69; PULSE 92; RESP 18; O2SAT 99
== END | disposition home or self-care (01) ==
LOC: OR 05:00
PROVIDERS: ATTEND Orthopaedic Surgery
DX: Z46.4 Encounter for fitting and adjustment of orthodontic device (principal); S42.202A Unspecified fracture of upper end of left humerus, initial encounter for closed fracture; E11.22 Type 2 diabetes mellitus with diabetic chronic kidney disease; I12.9 Hypertensive chronic kidney disease with stage 1 through stage 4 chronic kidney disease, or unspecified chronic kidney disease; N18.9 Chronic kidney disease, unspecified; X58.XXXA Exposure to other specified factors, initial encounter; Z01.810 Encounter for preprocedural cardiovascular examination; Z01.812 Encounter for preprocedural laboratory examination; Z79.82 Long term (current) use of aspirin; Z79.4 Long term (current) use of insulin; Z79.899 Other long term (current) drug therapy; Z86.73 Personal history of transient ischemic attack (TIA), and cerebral infarction without residual deficits
CPT/HCPCS: 20680; 36415 ×2; 80048; 82948; 85025; 86850; 86900; 86920; 87071; 87075; 87205; 93005; J0696; J1100 ×2; J2001; J2250; J2371; J2405; J2704; J2795; J3010; J7121; J7050

== ENCOUNTER 2024-07-13 08:53 | Inpatient (IN) | payer MEDICAID, OTHER ==
[~2024-07-13] VITALS: Ht 185.4 cm; Wt 67.8 kg
[2024-07-13] VITALS (19 sets, daily range): BP systolic 104–138; BP diastolic 57–77; PULSE 74–91; RESP 8–22; TEMP 97.8–98.2; O2SAT 92–100
[~2024-07-13 08:53] MED LIST changes: -CEFAZOLIN SODIUM 2 GM ONE; -DEXAMETHASONE SOD PHOS 10 MG/1 ML VIAL ONE; -DEXAMETHASONE SOD PHOS INJ 4 MG/ML SDV ONE; -EPHEDRINE SULFATE INJ 50 MG/ML VIAL ONE; -FENTANYL CITRATE/PF 100MCG/2 ML INJ ONE; -LACTATED RINGER'S 1,000 ML ONE; -LIDOCAINE HCL 2% LOCAL INJ 5 ML SDV VIAL INJ ONE; -MIDAZOLAM HCL 2 MG/2 ML VIAL ONE; -ONDANSETRON HCL INJ 2MG/ML 2ML 2 MG/ML VIAL ONE; -PHENYLEPHRINE HCL 1% 10 MG/ML VIAL ONE; -PROPOFOL IV EMULSION 10 MG/ML 20 ML VIAL ONE; -ROCURONIUM BROMIDE 10 MG/ML 5ML VIAL IV ONE; -ROPIVACAINE 0.5% 5 MG/ML 30 ML SDV ONE; -SEVOFLURANE INHAL SOLN 250 ML PEN BTL ONE; -SODIUM CHLORIDE 0.9% 0 ML ONE; -SODIUM CHLORIDE 0.9% 250ML 250 ML IV ONE; -SUGAMMADEX SODIUM 200 MG/2 ML VIAL IV ONE; -TRANEXAMIC ACID 0 ML ONE
[2024-07-13] MEDS: SODIUM CHLORIDE 0.9% 1000ML 1,000 ML IV STA (09:33)
[2024-07-13] MEDS: Morphine 4mg INJECTION 4 MG/ML INJ IV STA (09:33)
[2024-07-13 09:34] LABS: BASOPHILS # (AUTO) 0.1 (0.0-0.1); BASOPHILS % 0.3 % (0.0-1.0); EOSINOPHILS % 0.1 % (0.0-6.0); HEMATOCRIT 34.3 % (38.2-49.6); LYMPHOCYTES # (AUTO) 0.9 (1.0-3.2); LYMPHOCYTES % 5.4 % (18.0-39.1); MEAN CORPUSCULAR HEMOGLOBIN 26.3 pg (28-32); MEAN CORPUSCULAR HGB CONC 29.2 g/dL (31-35); MEAN CORPUSCULAR VOLUME 90.3 fL (81-99); MONOCYTES # (AUTO) 1.4 (0.2-0.8); MONOCYTES % 7.8 % (4.4-11.3); NEUTROPHILS # (AUTO) 14.8 (2.1-6.9); NEUTROPHILS % 85.2 % (38.7-80.0); PLATELET COUNT 314 x10e3/uL (140-360); RED CELL DISTRIBUTION WIDTH 14.8 % (11.7-14.4); WHITE BLOOD COUNT 17.38 x10e3/uL (4.8-10.8)
[2024-07-13 09:50] LABS: ALBUMIN/GLOBULIN RATIO 0.7 (0.8-2.0); ANION GAP 36.2 mmol/L (8-16); BILIRUBIN,TOTAL 0.3 mg/dL (0.2-1.2); CALCIUM 10.1 mg/dL (8.4-10.2); CREATININE, SERUM 3.13 mg/dL (0.72-1.25); TOTAL PROTEIN 7.4 g/dL (6.5-8.1)
[2024-07-13 09:53] LABS: POTASSIUM 5.2 mmol/L (3.5-5.1)
[2024-07-13] MEDS: LACTATED RINGER'S 1,000 ML INJ ONE (10:14)
[2024-07-13] MEDS: INSULIN REGULAR, HUMAN 100 UNIT/1 ML IV ONE (10:16)
[2024-07-13 10:37] LABS: CLARITY,URINE TURBID (CLEAR); COLOR,URINE YELLOW (YELLOW); GLUCOSE, URINE 500 (NEGATIVE); KETONES,URINE 2+ (NEGATIVE); LEUKOCYTE ESTERASE ,URINE LARGE (NEGATIVE); NITRITE,URINE NEGATIVE (NEGATIVE); PH,URINE 6.5 (5 - 7); PROTEIN,URINE DIPSTICK 2+ (NEGATIVE)
[2024-07-13 10:38] LABS: BILIRUBIN,URINE SMALL (NEGATIVE); URINE UROBILINOGEN 0.2 mg/dL (0.2 - 1)
[2024-07-13 10:38] LABS: ABG HCO3 6 mmol/L (22-26); ABG PCO2 18 mmHg (35-45); ABG PH 7.12 (7.35-7.45); ABG PO2 100 mmHg (80-105); ABG TCO2 6
[2024-07-13 10:42] LABS: BACTERIA,URINE MANY /HPF; EPITHELIAL CELLS,URINE FEW /LPF; WBC,URINE (MAN) >50 /HPF (0-5)
[2024-07-13] MEDS ORDERED: MAGNESIUM SULF 1GRAM/DEXTROSE 100 ML IV PRN ×2 (10:45→12:15)
[2024-07-13] MEDS ORDERED: POTASSIUM CHLORIDE 20MEQ/100ML 200 ML IV PRN ×2 (10:45→12:15)
[2024-07-13] MEDS: DEXTROSE 5%/0.45% SOD CHL 1,000 ML IV SCH (10:45)
[2024-07-13] MEDS: Vancomycin IV 1 GM in SODIUM CHLORIDE 0.9% 250ML 250 ML IV ONE (11:11)
[2024-07-13] MEDS: SODIUM CHLORIDE 0.9% 1000ML 1,000 ML IV SCH (11:16)
[2024-07-13] MEDS: INSULIN REGULAR, HUMAN 3ML VL 100 UNIT in SODIUM CHLORIDE 0.9% 99 ML IV SCH ×2 (11:21→12:45)
[2024-07-13] MEDS ORDERED: DIFICID200 MG PO (12:06)
[2024-07-13] MEDS ORDERED: COLD & COUGH E118 ML PO (12:06)
[2024-07-13 14:32] LABS: ANION GAP 25.3 mmol/L (8-16); CALCIUM 9.9 mg/dL (8.4-10.2); CREATININE, SERUM 2.71 mg/dL (0.72-1.25); MAGNESIUM 2.4 MG/DL (1.3-2.1); POTASSIUM 4.3 mmol/L (3.5-5.1)
[2024-07-13 20:06] LABS: CALCIUM 9.6 mg/dL (8.4-10.2); CREATININE, SERUM 2.27 mg/dL (0.72-1.25); MAGNESIUM 2.2 MG/DL (1.3-2.1)
[2024-07-13] MEDS: MUPIROCIN 2% OINT 22 GM TUBE TOP SCH (20:09)
[2024-07-13] MEDS: ONDANSETRON HCL INJ 2MG/ML 2ML 2 MG/ML VIAL IV PRN (21:20)
[2024-07-13] MEDS: PROMETHAZINE 12.5MG/ NACL 0.9% 12.5 MG/50 ML BAG IV PRN (22:54)
[2024-07-14] VITALS (26 sets, daily range): BP systolic 105–191; BP diastolic 55–116; PULSE 76–100; RESP 12–25; TEMP 97.9–98.9; O2SAT 89–98
[2024-07-14 01:04] LABS: ANION GAP 19.5 mmol/L (8-16); CALCIUM 9.5 mg/dL (8.4-10.2); CREATININE, SERUM 2.27 mg/dL (0.72-1.25); POTASSIUM 4.5 mmol/L (3.5-5.1)
[2024-07-14 01:32] LABS: MAGNESIUM 2.1 MG/DL (1.3-2.1)
[2024-07-14 06:44] LABS: BASOPHILS # (AUTO) 0.1 (0.0-0.1); BASOPHILS % 0.5 % (0.0-1.0); EOSINOPHILS # (AUTO) 0.2 (0.0-0.4); EOSINOPHILS % 1.7 % (0.0-6.0); HEMATOCRIT 30.2 % (38.2-49.6); HEMOGLOBIN 9.7 g/dL (14.0-18.0); LYMPHOCYTES # (AUTO) 0.6 (1.0-3.2); LYMPHOCYTES % 5.1 % (18.0-39.1); MEAN CORPUSCULAR HEMOGLOBIN 26.3 pg (28-32); MEAN CORPUSCULAR HGB CONC 32.1 g/dL (31-35); MEAN CORPUSCULAR VOLUME 81.8 fL (81-99); MONOCYTES # (AUTO) 1.3 (0.2-0.8); NEUTROPHILS # (AUTO) 9.6 (2.1-6.9); PLATELET COUNT 301 x10e3/uL (140-360); RED BLOOD COUNT 3.69 x10e6/uL (4.3-5.7); WHITE BLOOD COUNT 11.87 x10e3/uL (4.8-10.8)
[2024-07-14] MEDS ORDERED: METOCLOPRAMIDE HCL 10 MG/2ML VIAL IV SCH (08:00)
[2024-07-14 08:01] LABS: ANION GAP 13.7 mmol/L (8-16); CALCIUM 9.2 mg/dL (8.4-10.2); CREATININE, SERUM 1.96 mg/dL (0.72-1.25); POTASSIUM 3.7 mmol/L (3.5-5.1)
[2024-07-14 08:29] LABS: ABG HCO3 6 mmol/L (22-26); ABG PCO2 18 mmHg (35-45); ABG PH 7.12 (7.35-7.45); ABG PO2 126 mmHg (80-105); ABG TCO2 6
[2024-07-14] MEDS: METOCLOPRAMIDE HCL 10 MG/2ML VIAL IV SCH (08:33)
[2024-07-14] MEDS: ONDANSETRON HCL INJ 2MG/ML 2ML 2 MG/ML VIAL IV PRN (14:11)
[2024-07-14 14:56] LABS: FREE T4 (FREE THYROXINE) 1.07 ng/dL (0.8-1.8); THYROID STIMULATING HORMONE 0.608 uIU/mL (0.350-4.940)
[2024-07-14] MEDS: AMLODIPINE BESYLATE 5 MG TAB PO ONE ×2 (17:58→21:32)
[2024-07-14 19:18] LABS: ANION GAP 12.5 mmol/L (8-16); CALCIUM 9.1 mg/dL (8.4-10.2); CREATININE, SERUM 1.59 mg/dL (0.72-1.25); POTASSIUM 3.5 mmol/L (3.5-5.1)
[2024-07-14] MEDS: INSULIN REGULAR, HUMAN 3ML VL 100 UNIT in SODIUM CHLORIDE 0.9% 99 ML IV SCH (20:31)
[2024-07-14] MEDS: INSULIN GLARGINE 100 UNITS/ML VIAL SQ SCH (20:32)
[2024-07-14] MEDS: HYDRALAZINE HCL 20 MG/ML VIAL IV PRN (21:31)
[2024-07-14] MEDS: Morphine 4mg INJECTION 4 MG/ML INJ IV PRN (23:27)
[2024-07-15] VITALS (22 sets, daily range): BP systolic 83–148; BP diastolic 52–85; PULSE 69–88; RESP 2–20; TEMP 97.6–98.4; O2SAT 93–98
[2024-07-15 06:46] LABS: BASOPHILS # (AUTO) 0.1 (0.0-0.1); BASOPHILS % 0.7 % (0.0-1.0); EOSINOPHILS # (AUTO) 0.7 (0.0-0.4); EOSINOPHILS % 9.5 % (0.0-6.0); HEMATOCRIT 30.2 % (38.2-49.6); LYMPHOCYTES # (AUTO) 1.3 (1.0-3.2); LYMPHOCYTES % 17.9 % (18.0-39.1); MEAN CORPUSCULAR HEMOGLOBIN 26.1 pg (28-32); MEAN CORPUSCULAR HGB CONC 29.8 g/dL (31-35); MEAN CORPUSCULAR VOLUME 87.5 fL (81-99); MONOCYTES # (AUTO) 0.8 (0.2-0.8); MONOCYTES % 10.8 % (4.4-11.3); NEUTROPHILS # (AUTO) 4.2 (2.1-6.9); NEUTROPHILS % 60.1 % (38.7-80.0); PLATELET COUNT 268 x10e3/uL (140-360); RED BLOOD COUNT 3.45 x10e6/uL (4.3-5.7); RED CELL DISTRIBUTION WIDTH 14.9 % (11.7-14.4); WHITE BLOOD COUNT 7.05 x10e3/uL (4.8-10.8)
[2024-07-15 07:03] LABS: ALBUMIN 2.1 g/dL (3.5-5.0); ALBUMIN/GLOBULIN RATIO 0.6 (0.8-2.0); ANION GAP 10.2 mmol/L (8-16); BILIRUBIN,TOTAL 0.3 mg/dL (0.2-1.2); CALCIUM 8.7 mg/dL (8.4-10.2); CREATININE, SERUM 1.25 mg/dL (0.72-1.25); TOTAL PROTEIN 5.4 g/dL (6.5-8.1)
[2024-07-15 07:05] LABS: POTASSIUM 3.2 mmol/L (3.5-5.1)
[2024-07-15] MEDS: AMLODIPINE BESYLATE 10 MG TAB PO SCH (08:05)
[2024-07-15] MEDS ORDERED: AMLODIPINE BESYLATE 5 MG TAB PO SCH (09:00)
[2024-07-15] MEDS: MEROPENEM 1 GM in SODIUM CHLORIDE 0.9% 100 ML IV SCH (11:16)
[2024-07-15] MEDS: POTASSIUM CHLORIDE 20MEQ/100ML 100 ML INJ PRN (12:56)
[2024-07-15] MEDS: INSULIN LISPRO 100 UNIT/1 ML 3ML VIAL SQ ONE (13:59)
[2024-07-15] MEDS: INSULIN LISPRO 100 UNIT/1 ML 3ML VIAL SQ SCH ×2 (14:50→16:30)
[2024-07-15] MEDS: GABAPENTIN 300 MG CAP PO SCH (14:57)
[2024-07-15] MEDS: POTASSIUM CHLORIDE 20MEQ/100ML 100 ML IV ONE (16:39)
[2024-07-15] MEDS: INSULIN GLARGINE 100 UNITS/ML VIAL SQ SCH (21:24)
[2024-07-16] VITALS (26 sets, daily range): BP systolic 73–149; BP diastolic 31–86; PULSE 56–94; RESP 11–23; TEMP 97.8–99.8; O2SAT 91–100
[2024-07-16 08:23] LABS: ANION GAP 13.1 mmol/L (8-16); CALCIUM 8.4 mg/dL (8.4-10.2); CREATININE, SERUM 1.26 mg/dL (0.72-1.25); POTASSIUM 4.1 mmol/L (3.5-5.1)
[2024-07-16] MEDS ORDERED: DIFICID 200 MG PO SCH (09:00)
[2024-07-16] MEDS: INSULIN GLARGINE 100 UNITS/ML VIAL SQ SCH (20:49)
[2024-07-17] VITALS (16 sets, daily range): BP systolic 110–156; BP diastolic 64–81; PULSE 83–101; RESP 12–27; TEMP 98.2–100.1; O2SAT 91–98
[2024-07-17] MEDS ORDERED: NORVASC10 MG PO (14:37)
[2024-07-17] MEDS ORDERED: BACTRIM 400-801 EACH PO (14:37)
[2024-07-18] VITALS (7 sets, daily range): BP systolic 133–155; BP diastolic 67–86; PULSE 56–88; RESP 16–19; TEMP 97.7–98.7; O2SAT 95–100
[2024-07-18 05:14] LABS: BASOPHILS # (AUTO) 0.1 (0.0-0.1); BASOPHILS % 0.5 % (0.0-1.0); EOSINOPHILS # (AUTO) 0.6 (0.0-0.4); EOSINOPHILS % 6.4 % (0.0-6.0); HEMATOCRIT 31.9 % (38.2-49.6); HEMOGLOBIN 9.4 g/dL (14.0-18.0); LYMPHOCYTES # (AUTO) 1.5 (1.0-3.2); LYMPHOCYTES % 15.6 % (18.0-39.1); MEAN CORPUSCULAR HGB CONC 29.5 g/dL (31-35); MEAN CORPUSCULAR VOLUME 88.4 fL (81-99); MONOCYTES # (AUTO) 0.8 (0.2-0.8); MONOCYTES % 8.8 % (4.4-11.3); NEUTROPHILS # (AUTO) 6.3 (2.1-6.9); NEUTROPHILS % 67.4 % (38.7-80.0); PLATELET COUNT 349 x10e3/uL (140-360); RED BLOOD COUNT 3.61 x10e6/uL (4.3-5.7); RED CELL DISTRIBUTION WIDTH 14.7 % (11.7-14.4); WHITE BLOOD COUNT 9.31 x10e3/uL (4.8-10.8)
[2024-07-18 05:58] LABS: ALBUMIN 2.1 g/dL (3.5-5.0); ALBUMIN/GLOBULIN RATIO 0.6 (0.8-2.0); ANION GAP 12.9 mmol/L (8-16); BILIRUBIN,TOTAL 0.2 mg/dL (0.2-1.2); CALCIUM 8.6 mg/dL (8.4-10.2); CREATININE, SERUM 0.98 mg/dL (0.72-1.25); POTASSIUM 3.9 mmol/L (3.5-5.1); TOTAL PROTEIN 5.6 g/dL (6.5-8.1)
[2024-07-18] MEDS: LACTOBACILLUS ACIDOPHILUS CAPSULE PO SCH (09:00)
[2024-07-18] MEDS: DEXTROSE 50% SYRINGE 50 ML IV PRN (14:59)
[2024-07-18] MEDS: INSULIN LISPRO 100 UNIT/1 ML 3ML VIAL SQ SCH (16:30)
[2024-07-18] MEDS: Morphine 4mg INJECTION 4 MG/ML INJ IV PRN (17:29)
[2024-07-18] MEDS: INSULIN GLARGINE 100 UNITS/ML VIAL SQ SCH (21:00)
[2024-07-18] MEDS: MUPIROCIN 2% OINT 22 GM TUBE TOP SCH (21:22)
[2024-07-19] VITALS: BP 123/85; PULSE 88; RESP 19; TEMP 98.4; O2SAT 99
[2024-07-19 05:39] VITALS: BP 147/86; PULSE 86; RESP 18; TEMP 98.4; O2SAT 98
[2024-07-19 06:10] LABS: ANION GAP 15.2 mmol/L (8-16); CALCIUM 8.6 mg/dL (8.4-10.2); CREATININE, SERUM 1.07 mg/dL (0.72-1.25); POTASSIUM 4.2 mmol/L (3.5-5.1)
[2024-07-19 08:00] VITALS: BP 141/80; PULSE 89; RESP 18; TEMP 98.8; O2SAT 97
[2024-07-19] MEDS: INSULIN LISPRO 100 UNIT/1 ML 3ML VIAL SQ SCH ×2 (08:22→16:13)
[2024-07-19 12:00] VITALS: BP 126/78; PULSE 80; RESP 19; TEMP 98.2; O2SAT 98
[2024-07-19 16:00] VITALS: BP 90/63; PULSE 79; RESP 18; TEMP 98.3; O2SAT 99
[2024-07-19 20:00] VITALS: BP 116/75; PULSE 79; RESP 16; TEMP 98.1; O2SAT 95
[2024-07-19] MEDS: INSULIN GLARGINE 100 UNITS/ML VIAL SQ SCH (20:06)
[2024-07-20] VITALS (8 sets, daily range): BP systolic 111–170; BP diastolic 73–94; PULSE 67–90; RESP 16–19; TEMP 97.7–99.3; O2SAT 96–99
[2024-07-20 06:32] LABS: ANION GAP 15.4 mmol/L (8-16); CALCIUM 8.8 mg/dL (8.4-10.2); CREATININE, SERUM 1.14 mg/dL (0.72-1.25); POTASSIUM 4.4 mmol/L (3.5-5.1)
[2024-07-21] VITALS (7 sets, daily range): BP systolic 105–146; BP diastolic 64–85; PULSE 80–89; RESP 18–19; TEMP 98–98.2; O2SAT 96–99
[2024-07-21 06:36] LABS: ANION GAP 14.3 mmol/L (8-16); CALCIUM 8.8 mg/dL (8.4-10.2); CREATININE, SERUM 1.1 mg/dL (0.72-1.25); POTASSIUM 4.3 mmol/L (3.5-5.1)
[2024-07-21] MEDS: INSULIN GLARGINE 100 UNITS/ML VIAL SQ SCH (22:07)
[2024-07-22] VITALS (9 sets, daily range): BP systolic 93–142; BP diastolic 56–85; PULSE 78–91; RESP 18–20; TEMP 97.9–98.8; O2SAT 96–99
[2024-07-22] MEDS: INSULIN GLARGINE 100 UNITS/ML VIAL SQ SCH (09:00)
[2024-07-22] MEDS ORDERED: PROPOFOL IV EMULSION 10 MG/ML 20 ML VIAL ONE ×2 (14:14→15:39)
[2024-07-22] MEDS ORDERED: FENTANYL CITRATE/PF 100MCG/2 ML INJ ONE ×2 (14:14→15:40)
[2024-07-22] MEDS ORDERED: LIDOCAINE HCL 2% LOCAL INJ 5 ML SDV VIAL INJ ONE (14:14)
[2024-07-22] MEDS ORDERED: SUCCINYLCHOLINE CHLORIDE 20 MG/ML 10ML VIAL ONE (14:22)
[2024-07-22] MEDS ORDERED: ROCURONIUM BROMIDE 1 ML IV ONE (14:59)
[2024-07-22] MEDS ORDERED: METOCLOPRAMIDE HCL 10 MG/2ML VIAL ONE (15:00)
[2024-07-22] MEDS ORDERED: FAMOTIDINE 20 MG/2 ML VIAL IV ONE (15:00)
[2024-07-22] MEDS ORDERED: SUGAMMADEX SODIUM 200 MG/2 ML VIAL IV ONE (15:09)
[2024-07-22] MEDS ORDERED: ACETAMINOPHEN 1000 MG/100 ML 100 ML IV ONE (15:21)
[2024-07-22] MEDS ORDERED: SODIUM CHLORIDE 0.9% 100 ML ONE (15:21)
[2024-07-22] MEDS ORDERED: PHENYLEPHRINE HCL 1% 10 MG/ML VIAL ONE (15:21)
[2024-07-22] MEDS ORDERED: SEVOFLURANE INHAL SOLN 250 ML PEN BTL ONE (15:47)
[2024-07-22] MEDS ORDERED: PHENAZOPYRIDINE HCL 100 MG TAB PO PRN (16:30)
[2024-07-22] MEDS ORDERED: ACETAMINOPHEN 1000 MG/100 ML IV PRN (16:30)
[2024-07-22] MEDS ORDERED: ONDANSETRON HCL INJ 2MG/ML 2ML 2 MG/ML VIAL IV PRN (16:30)
[2024-07-22] MEDS ORDERED: DIPHENHYDRAMINE HCL 25 MG CAP PO PRN (16:30)
[2024-07-22] MEDS: SODIUM CHLORIDE 0.9% 1000ML 1,000 ML IV SCH (17:59)
[2024-07-23] VITALS: BP 117/79; PULSE 85; RESP 21; TEMP 98.4; O2SAT 99
[2024-07-23] MEDS: ACETAMINOPHEN/CODEINE 300MG - 30MG TAB PO PRN (06:18)
[2024-07-23 08:28] VITALS: BP 117/65; PULSE 92; RESP 18; TEMP 97.5; O2SAT 94
[2024-07-23 08:34] LABS: BASOPHILS # (AUTO) 0.1 (0.0-0.1); BASOPHILS % 0.4 % (0.0-1.0); EOSINOPHILS # (AUTO) 0.2 (0.0-0.4); EOSINOPHILS % 1.8 % (0.0-6.0); HEMOGLOBIN 9.4 g/dL (14.0-18.0); LYMPHOCYTES # (AUTO) 1.4 (1.0-3.2); LYMPHOCYTES % 11.5 % (18.0-39.1); MEAN CORPUSCULAR HGB CONC 30.3 g/dL (31-35); MEAN CORPUSCULAR VOLUME 85.6 fL (81-99); MONOCYTES # (AUTO) 1.3 (0.2-0.8); MONOCYTES % 10.6 % (4.4-11.3); NEUTROPHILS # (AUTO) 9.4 (2.1-6.9); NEUTROPHILS % 75.1 % (38.7-80.0); PLATELET COUNT 510 x10e3/uL (140-360); RED BLOOD COUNT 3.62 x10e6/uL (4.3-5.7); RED CELL DISTRIBUTION WIDTH 14.6 % (11.7-14.4); WHITE BLOOD COUNT 12.51 x10e3/uL (4.8-10.8)
[2024-07-23 08:36] VITALS: BP 117/65; PULSE 92; RESP 18; TEMP 97.5; O2SAT 94
[2024-07-23 09:15] LABS: ANION GAP 13.8 mmol/L (8-16); CALCIUM 8.7 mg/dL (8.4-10.2); CREATININE, SERUM 1.34 mg/dL (0.72-1.25); MAGNESIUM 1.6 MG/DL (1.3-2.1); PHOSPHORUS 2.6 MG/DL (2.3-4.7); POTASSIUM 4.8 mmol/L (3.5-5.1)
[2024-07-23 12:26] VITALS: BP 135/79; PULSE 90; RESP 18; TEMP 99; O2SAT 100
[2024-07-23] MEDS: MAGNESIUM SULFATE 2GM/50ML 50 ML IV ONE (15:16)
[2024-07-23 17:41] VITALS: BP 112/73; PULSE 87; RESP 18; TEMP 98.1; O2SAT 100
[2024-07-23 20:00] VITALS: BP 125/74; PULSE 87; RESP 19; TEMP 98.6; O2SAT 99
[2024-07-23] MEDS: INSULIN GLARGINE 100 UNITS/ML VIAL SQ SCH (21:00)
[2024-07-24] VITALS (7 sets, daily range): BP systolic 105–150; BP diastolic 60–87; PULSE 79–99; RESP 16–20; TEMP 97.8–98.7; O2SAT 95–99
[2024-07-24 07:00] LABS: BASOPHILS # (AUTO) 0.1 (0.0-0.1); BASOPHILS % 0.6 % (0.0-1.0); EOSINOPHILS # (AUTO) 0.4 (0.0-0.4); EOSINOPHILS % 3.4 % (0.0-6.0); HEMATOCRIT 31.8 % (38.2-49.6); HEMOGLOBIN 9.6 g/dL (14.0-18.0); LYMPHOCYTES # (AUTO) 1.7 (1.0-3.2); LYMPHOCYTES % 14.5 % (18.0-39.1); MEAN CORPUSCULAR HEMOGLOBIN 25.9 pg (28-32); MEAN CORPUSCULAR HGB CONC 30.2 g/dL (31-35); MEAN CORPUSCULAR VOLUME 85.7 fL (81-99); MONOCYTES # (AUTO) 1.2 (0.2-0.8); MONOCYTES % 10.3 % (4.4-11.3); NEUTROPHILS # (AUTO) 8.1 (2.1-6.9); NEUTROPHILS % 70.6 % (38.7-80.0); PLATELET COUNT 513 x10e3/uL (140-360); RED BLOOD COUNT 3.71 x10e6/uL (4.3-5.7); RED CELL DISTRIBUTION WIDTH 14.6 % (11.7-14.4); WHITE BLOOD COUNT 11.52 x10e3/uL (4.8-10.8)
[2024-07-24 07:28] LABS: ANION GAP 14.8 mmol/L (8-16); CREATININE, SERUM 1.48 mg/dL (0.72-1.25); POTASSIUM 4.8 mmol/L (3.5-5.1)
[2024-07-24] MEDS: INSULIN LISPRO 100 UNIT/1 ML 3ML VIAL SQ SCH (16:30)
[2024-07-24] MEDS: INSULIN GLARGINE 100 UNITS/ML VIAL SQ SCH (20:58)
[2024-07-25] VITALS: BP 111/62; PULSE 82; RESP 20; TEMP 98.6; O2SAT 92
[2024-07-25 04:00] VITALS: BP 152/77; PULSE 80; RESP 20; TEMP 98; O2SAT 98
[2024-07-25 06:13] LABS: BASOPHILS # (AUTO) 0.1 (0.0-0.1); BASOPHILS % 0.8 % (0.0-1.0); EOSINOPHILS # (AUTO) 0.4 (0.0-0.4); EOSINOPHILS % 3.9 % (0.0-6.0); HEMATOCRIT 28.6 % (38.2-49.6); HEMOGLOBIN 8.6 g/dL (14.0-18.0); LYMPHOCYTES # (AUTO) 1.6 (1.0-3.2); LYMPHOCYTES % 15.3 % (18.0-39.1); MEAN CORPUSCULAR HGB CONC 30.1 g/dL (31-35); MEAN CORPUSCULAR VOLUME 86.4 fL (81-99); MONOCYTES # (AUTO) 0.9 (0.2-0.8); NEUTROPHILS # (AUTO) 7.2 (2.1-6.9); NEUTROPHILS % 70.5 % (38.7-80.0); PLATELET COUNT 460 x10e3/uL (140-360); RED BLOOD COUNT 3.31 x10e6/uL (4.3-5.7); RED CELL DISTRIBUTION WIDTH 14.6 % (11.7-14.4); WHITE BLOOD COUNT 10.26 x10e3/uL (4.8-10.8)
[2024-07-25 06:47] LABS: ANION GAP 14.7 mmol/L (8-16); CREATININE, SERUM 1.28 mg/dL (0.72-1.25); POTASSIUM 4.7 mmol/L (3.5-5.1)
[2024-07-25 07:58] VITALS: BP 154/82; PULSE 82; RESP 18; TEMP 98.2; O2SAT 98
[2024-07-25 08:23] VITALS: BP 154/82; PULSE 82; RESP 18; TEMP 98.2; O2SAT 98
[2024-07-25] MEDS: FLUCONAZOLE 100 MG TAB PO ONE (08:57)
[2024-07-25] MEDS: TRIMETHOPRIM/SULFAMETHOXAZOLE 160-800 MG TAB PO SCH (08:58)
[2024-07-25] MEDS: MEROPENEM 1 GM in SODIUM CHLORIDE 0.9% 100 ML IV SCH (08:59)
[2024-07-25 11:15] VITALS: BP 101/61; PULSE 78; RESP 18; TEMP 97.6; O2SAT 98
[2024-07-25] MEDS: Morphine 4mg INJECTION 4 MG/ML INJ IV PRN (11:48)
[2024-07-26] MEDS ORDERED: FLUCONAZOLE 100 MG TAB PO SCH (09:00)
== END 2024-07-25 15:23 | disposition home or self-care (01) | DRG 981 ==
LOC: ER 09:05 → ERHOLD 11:11 → ICU 11:46 → MED/SURG2 07-17 14:18
PROVIDERS: ADMIT Internal Medicine; ATTEND Internal Medicine
PROC: 4A033R1 Measurement of Arterial Saturation, Peripheral, Percutaneous Approach (ICD-10-PCS; principal; 2024-07-13)
PROC: 3E03329 Introduction of Other Anti-infective into Peripheral Vein, Percutaneous Approach (ICD-10-PCS; principal; 2024-07-13)
PROC: 0T9B30Z Drainage of Bladder with Drainage Device, Percutaneous Approach (ICD-10-PCS; 2024-07-22)
PROC: 0VTB0ZZ Resection of Left Testis, Open Approach (ICD-10-PCS; 2024-07-22)
PROC: BT141ZZ Fluoroscopy of Kidneys, Ureters and Bladder using Low Osmolar Contrast (ICD-10-PCS; 2024-07-22)
PROC: B548ZZA Ultrasonography of Superior Vena Cava, Guidance (ICD-10-PCS; 2024-07-24)
PROC: 02HV33Z Insertion of Infusion Device into Superior Vena Cava, Percutaneous Approach (ICD-10-PCS; 2024-07-24)
DX: T83.511A Infection and inflammatory reaction due to indwelling urethral catheter, initial encounter (principal); A41.59 Other Gram-negative sepsis; E10.10 Type 1 diabetes mellitus with ketoacidosis without coma; R65.20 Severe sepsis without septic shock; B37.49 Other urogenital candidiasis; N17.9 Acute kidney failure, unspecified; Z16.12 Extended spectrum beta lactamase (ESBL) resistance; Z16.24 Resistance to multiple antibiotics; Z68.1 Body mass index [BMI] 19.9 or less, adult; N13.6 Pyonephrosis; N45.3 Epididymo-orchitis; N49.2 Inflammatory disorders of scrotum; B96.1 Klebsiella pneumoniae [K. pneumoniae] as the cause of diseases classified elsewhere; N50.89 Other specified disorders of the male genital organs; E86.0 Dehydration; E10.51 Type 1 diabetes mellitus with diabetic peripheral angiopathy without gangrene; E10.43 Type 1 diabetes mellitus with diabetic autonomic (poly)neuropathy; K31.84 Gastroparesis; I12.9 Hypertensive chronic kidney disease with stage 1 through stage 4 chronic kidney disease, or unspecified chronic kidney disease; E10.22 Type 1 diabetes mellitus with diabetic chronic kidney disease; N18.9 Chronic kidney disease, unspecified; E10.42 Type 1 diabetes mellitus with diabetic polyneuropathy; Z79.4 Long term (current) use of insulin; Z96.0 Presence of urogenital implants; I69.398 Other sequelae of cerebral infarction; N31.8 Other neuromuscular dysfunction of bladder; Z71.3 Dietary counseling and surveillance; E10.649 Type 1 diabetes mellitus with hypoglycemia without coma; Q54.8 Other hypospadias; R31.29 Other microscopic hematuria; R33.9 Retention of urine, unspecified; R33.8 Other retention of urine; N32.89 Other specified disorders of bladder; Z71.81 Spiritual or religious counseling; Z79.899 Other long term (current) drug therapy; Z79.82 Long term (current) use of aspirin; Z89.431 Acquired absence of right foot; Y84.6 Urinary catheterization as the cause of abnormal reaction of the patient, or of later complication, without mention of misadventure at the time of the procedure; Y92.009 Unspecified place in unspecified non-institutional (private) residence as the place of occurrence of the external cause
CPT/HCPCS: 36415; 36569; 36600; 71045; 71046; 74176; 74420; 76870; 80048; 80053; 81001; 82805; 82948; 83036; 83605; 83735; 84100; 84439; 84443; 85025; 87040; 87071; 87075; 87086; 87186; 87205; 88305; 93976; 94799; 96372; 99252; 99284; J0330; J0360; J1815; J2003; J2185; J2270; J2371; J2405; J2543; J2550; J2765; J3475; J3480; J7030; J7050; J7799

== ENCOUNTER 2024-07-27 22:28 | Inpatient (IN) | payer MEDICAID, OTHER ==
[~2024-07-27] VITALS: Ht 185.4 cm; Wt 67.6 kg
[~2024-07-27 22:28] MED LIST changes: +BACTRIM 400-801 EACH PO; +COLD & COUGH E118 ML PO; +DIFICID200 MG PO; +NORVASC10 MG PO
[2024-07-27 22:35] VITALS: TEMP 98.6
[2024-07-27 23:02] LABS: BASOPHILS # (AUTO) 0.1 (0.0-0.1); BASOPHILS % 1.4 % (0.0-1.0); EOSINOPHILS # (AUTO) 0.1 (0.0-0.4); HEMATOCRIT 33.7 % (38.2-49.6); HEMOGLOBIN 9.8 g/dL (14.0-18.0); LYMPHOCYTES % 9.5 % (18.0-39.1); MEAN CORPUSCULAR HEMOGLOBIN 25.9 pg (28-32); MEAN CORPUSCULAR HGB CONC 29.1 g/dL (31-35); MEAN CORPUSCULAR VOLUME 88.9 fL (81-99); MONOCYTES # (AUTO) 0.5 (0.2-0.8); MONOCYTES % 4.8 % (4.4-11.3); NEUTROPHILS # (AUTO) 8.3 (2.1-6.9); NEUTROPHILS % 82.9 % (38.7-80.0); PLATELET COUNT 532 x10e3/uL (140-360); RED BLOOD COUNT 3.79 x10e6/uL (4.3-5.7); RED CELL DISTRIBUTION WIDTH 13.9 % (11.7-14.4)
[2024-07-27 23:07] LABS: PROTHROMBIN TIME 13.8 seconds (11.9-14.5)
[2024-07-27 23:08] LABS: PARTIAL THROMBOPLASTIN TIME 35.2 seconds (23.8-35.5)
[2024-07-27 23:16] LABS: ALBUMIN/GLOBULIN RATIO 0.6 (0.8-2.0); ANION GAP 22.9 mmol/L (8-16); BILIRUBIN,TOTAL 0.3 mg/dL (0.2-1.2); CALCIUM 9.5 mg/dL (8.4-10.2); CREATININE, SERUM 2.49 mg/dL (0.72-1.25); POTASSIUM 4.9 mmol/L (3.5-5.1); TOTAL PROTEIN 7.7 g/dL (6.5-8.1)
[2024-07-27] MEDS: SODIUM CHLORIDE 0.9% 1000ML 1,000 ML IV ONE (23:21)
[2024-07-27] MEDS: ONDANSETRON HCL INJ 2MG/ML 2ML 2 MG/ML VIAL IV STA (23:21)
[2024-07-27] MEDS: INSULIN REGULAR, HUMAN 100 UNIT/1 ML SQ ONE (23:47)
[2024-07-28] VITALS (13 sets, daily range): BP systolic 105–146; BP diastolic 65–88; PULSE 75–92; RESP 16–20; TEMP 97.3–98.2; O2SAT 95–100
[2024-07-28 00:28] LABS: ABG HCO3 22 mmol/L (22-26); ABG PCO2 37 mmHg (35-45); ABG PH 7.38 (7.35-7.45); ABG PO2 87 mmHg (80-105); ABG TCO2 23
[2024-07-28] MEDS: HALOPERIDOL LACTATE 5 MG/ML VIAL IV ONE (00:34)
[2024-07-28] MEDS ORDERED: DEXTROSE 50% SYRINGE 50 ML IV PRN (01:15)
[2024-07-28] MEDS: SODIUM CHLORIDE 0.9% 1000ML 1,000 ML IV SCH (02:32)
[2024-07-28] MEDS ORDERED: ONDANSETRON HCL INJ 2MG/ML 2ML 2 MG/ML VIAL IV PRN (03:00)
[2024-07-28 03:06] LABS: HYPOCHROMASIA SLIGHT
[2024-07-28 03:07] LABS: ANISOCYTOSIS SLIGHT; MICROCYTOSIS SLIGHT; OVALOCYTES FEW; POIKILOCYTOSIS SLIGHT; POLYCHROMASIA FEW; RBC MORPHOLOGY COMMENT ABNORMAL; STOMATOCYTES SLIGHT
[2024-07-28 03:08] LABS: PLATELET ESTIMATE ADEQUATE; PLATELET MORPHOLOGY COMMENT NORMAL
[2024-07-28 07:12] LABS: ABG HCO3 22 mmol/L (22-26); ABG PCO2 37 mmHg (35-45); ABG PH 7.38 (7.35-7.45); ABG PO2 87 mmHg (80-105); ABG TCO2 23
[2024-07-28] MEDS: INSULIN REGULAR, HUMAN 100 UNIT/1 ML SQ SCH (08:12)
[2024-07-28] MEDS ORDERED: NON-FORMULARY MEDICATION (Insulin Degludec (Tresiba) 25 UNITS) SQ SCH (09:30)
[2024-07-28] MEDS: HYDROCODONE/APAP 10MG-325MG TAB PO PRN (10:17)
[2024-07-28] MEDS: ONDANSETRON HCL INJ 2MG/ML 2ML 2 MG/ML VIAL IV PRN (10:17)
[2024-07-28] MEDS: VANCOMYCIN HCL 125 MG CAPSULE PO SCH (10:17)
[2024-07-28] MEDS: FLUCONAZOLE 100 MG TAB PO SCH (10:17)
[2024-07-28] MEDS: MEROPENEM 1 GM in SODIUM CHLORIDE 0.9% 100 ML IV SCH (10:18)
[2024-07-28] MEDS: METOCLOPRAMIDE HCL 10 MG/2ML VIAL IV SCH (12:33)
[2024-07-28] MEDS: LACTOBACILLUS ACIDOPHILUS CAPSULE PO SCH (14:05)
[2024-07-28] MEDS: GABAPENTIN 300 MG CAP PO SCH (14:05)
[2024-07-29] VITALS (8 sets, daily range): BP systolic 120–149; BP diastolic 77–91; PULSE 78–91; RESP 16–18; TEMP 97.8–99; O2SAT 99–100
[2024-07-29 06:21] LABS: BASOPHILS # (AUTO) 0.1 (0.0-0.1); BASOPHILS % 2.3 % (0.0-1.0); EOSINOPHILS # (AUTO) 0.2 (0.0-0.4); EOSINOPHILS % 3.3 % (0.0-6.0); HEMATOCRIT 30.6 % (38.2-49.6); HEMOGLOBIN 8.7 g/dL (14.0-18.0); LYMPHOCYTES # (AUTO) 1.2 (1.0-3.2); MEAN CORPUSCULAR HEMOGLOBIN 25.2 pg (28-32); MEAN CORPUSCULAR HGB CONC 28.4 g/dL (31-35); MEAN CORPUSCULAR VOLUME 88.7 fL (81-99); MONOCYTES # (AUTO) 0.5 (0.2-0.8); MONOCYTES % 7.6 % (4.4-11.3); NEUTROPHILS % 66.5 % (38.7-80.0); PLATELET COUNT 456 x10e3/uL (140-360); RED BLOOD COUNT 3.45 x10e6/uL (4.3-5.7); RED CELL DISTRIBUTION WIDTH 13.9 % (11.7-14.4); WHITE BLOOD COUNT 6.06 x10e3/uL (4.8-10.8)
[2024-07-29 06:49] LABS: ALBUMIN 2.5 g/dL (3.5-5.0); ALBUMIN/GLOBULIN RATIO 0.7 (0.8-2.0); ANION GAP 15.5 mmol/L (8-16); BILIRUBIN,TOTAL 0.4 mg/dL (0.2-1.2); CALCIUM 8.4 mg/dL (8.4-10.2); CREATININE, SERUM 1.47 mg/dL (0.72-1.25); POTASSIUM 4.5 mmol/L (3.5-5.1); TOTAL PROTEIN 6.1 g/dL (6.5-8.1)
[2024-07-29] MEDS: INSULIN LISPRO 100 UNIT/1 ML 3ML VIAL SQ SCH ×2 (08:23→15:49)
[2024-07-29] MEDS: INSULIN GLARGINE 100 UNITS/ML VIAL SQ SCH ×2 (08:23→21:00)
[2024-07-29] MEDS: AMLODIPINE BESYLATE 10 MG TAB PO SCH (08:29)
[2024-07-29] MEDS ORDERED: INSULIN LISPRO 100 UNIT/1 ML 3ML VIAL SQ SCH (11:30)
[2024-07-29 15:56] LABS: CDIFF AG QUIK CHEK NEGATIVE (NEGATIVE); CDIFF TOX QUIK CHEK NEGATIVE (NEGATIVE)
[2024-07-29] MEDS ORDERED: INSULIN GLARGINE 100 UNITS/ML VIAL SQ SCH (21:00)
[2024-07-30] VITALS (8 sets, daily range): BP systolic 96–152; BP diastolic 67–93; PULSE 74–85; RESP 16–20; TEMP 97.6–98.2; O2SAT 97–100
[2024-07-30] MEDS: INSULIN GLARGINE 100 UNITS/ML VIAL SQ SCH (12:50)
[2024-07-30] MEDS: INSULIN LISPRO 100 UNIT/1 ML 3ML VIAL SQ SCH (17:00)
[2024-07-31] VITALS (9 sets, daily range): BP systolic 113–134; BP diastolic 73–95; PULSE 69–109; RESP 16–19; TEMP 97.7–98.4; O2SAT 97–100
[2024-07-31 06:33] LABS: BASOPHILS # (AUTO) 0.2 (0.0-0.1); BASOPHILS % 2.9 % (0.0-1.0); EOSINOPHILS # (AUTO) 0.4 (0.0-0.4); EOSINOPHILS % 6.4 % (0.0-6.0); HEMATOCRIT 30.1 % (38.2-49.6); HEMOGLOBIN 8.7 g/dL (14.0-18.0); LYMPHOCYTES # (AUTO) 1.5 (1.0-3.2); LYMPHOCYTES % 25.2 % (18.0-39.1); MEAN CORPUSCULAR HEMOGLOBIN 25.6 pg (28-32); MEAN CORPUSCULAR HGB CONC 28.9 g/dL (31-35); MEAN CORPUSCULAR VOLUME 88.5 fL (81-99); MONOCYTES # (AUTO) 0.4 (0.2-0.8); MONOCYTES % 7.3 % (4.4-11.3); NEUTROPHILS # (AUTO) 3.4 (2.1-6.9); NEUTROPHILS % 57.5 % (38.7-80.0); PLATELET COUNT 444 x10e3/uL (140-360); WHITE BLOOD COUNT 5.92 x10e3/uL (4.8-10.8)
[2024-07-31 06:48] LABS: ANION GAP 14.5 mmol/L (8-16); CALCIUM 8.9 mg/dL (8.4-10.2); CREATININE, SERUM 1.21 mg/dL (0.72-1.25); MAGNESIUM 1.9 MG/DL (1.3-2.1); PHOSPHORUS 2.8 MG/DL (2.3-4.7); POTASSIUM 4.5 mmol/L (3.5-5.1)
[2024-07-31] MEDS: DEXTROSE 50% SYRINGE 50 ML IV PRN (13:18)
[2024-07-31] MEDS: INSULIN LISPRO 100 UNIT/1 ML 3ML VIAL SQ SCH (17:00)
[2024-08-01] VITALS: BP 130/69; PULSE 82; RESP 18; TEMP 98.2; O2SAT 99
[2024-08-01 04:00] VITALS: BP 127/69; PULSE 86; RESP 18; TEMP 98.3; O2SAT 99
[2024-08-01 05:45] LABS: BASOPHILS # (AUTO) 0.1 (0.0-0.1); BASOPHILS % 2.2 % (0.0-1.0); EOSINOPHILS # (AUTO) 0.3 (0.0-0.4); EOSINOPHILS % 6.3 % (0.0-6.0); HEMATOCRIT 32.4 % (38.2-49.6); HEMOGLOBIN 9.1 g/dL (14.0-18.0); LYMPHOCYTES # (AUTO) 1.4 (1.0-3.2); LYMPHOCYTES % 24.9 % (18.0-39.1); MEAN CORPUSCULAR HEMOGLOBIN 25.7 pg (28-32); MEAN CORPUSCULAR HGB CONC 28.1 g/dL (31-35); MEAN CORPUSCULAR VOLUME 91.5 fL (81-99); MONOCYTES # (AUTO) 0.5 (0.2-0.8); NEUTROPHILS # (AUTO) 3.1 (2.1-6.9); PLATELET COUNT 418 x10e3/uL (140-360); RED BLOOD COUNT 3.54 x10e6/uL (4.3-5.7); RED CELL DISTRIBUTION WIDTH 14.4 % (11.7-14.4); WHITE BLOOD COUNT 5.42 x10e3/uL (4.8-10.8)
[2024-08-01 06:32] LABS: ANION GAP 15.6 mmol/L (8-16); CREATININE, SERUM 1.14 mg/dL (0.72-1.25); MAGNESIUM 1.9 MG/DL (1.3-2.1); PHOSPHORUS 2.7 MG/DL (2.3-4.7); POTASSIUM 4.6 mmol/L (3.5-5.1)
[2024-08-01 08:07] VITALS: BP 119/79; PULSE 81; RESP 17; TEMP 98.6; O2SAT 100
[2024-08-01 09:40] VITALS: BP 119/79; PULSE 81; RESP 17; TEMP 98.6; O2SAT 100
[2024-08-01 11:15] VITALS: BP 125/75; PULSE 79; RESP 21; TEMP 98.6; O2SAT 100
== END 2024-08-01 14:00 | disposition home or self-care (01) | DRG 74 ==
LOC: ER 22:33 → ERHOLD 07-28 01:04 → OBSVTOIN 07-28 01:04 → MED/SURG3 07-28 02:17
PROVIDERS: ADMIT Internal Medicine; ATTEND Internal Medicine
PROC: 4A133R1 Monitoring of Arterial Saturation, Peripheral, Percutaneous Approach (ICD-10-PCS; principal; 2024-07-27)
DX: E10.43 Type 1 diabetes mellitus with diabetic autonomic (poly)neuropathy (principal); A09 Infectious gastroenteritis and colitis, unspecified; E87.1 Hypo-osmolality and hyponatremia; N17.9 Acute kidney failure, unspecified; E10.65 Type 1 diabetes mellitus with hyperglycemia; K31.84 Gastroparesis; E10.649 Type 1 diabetes mellitus with hypoglycemia without coma; E10.22 Type 1 diabetes mellitus with diabetic chronic kidney disease; N18.9 Chronic kidney disease, unspecified; N31.9 Neuromuscular dysfunction of bladder, unspecified; E86.0 Dehydration; Z93.59 Other cystostomy status; Z79.4 Long term (current) use of insulin; Z79.82 Long term (current) use of aspirin; Z89.431 Acquired absence of right foot; Z90.79 Acquired absence of other genital organ(s)
CPT/HCPCS: 36415; 36600; 74176; 80048; 80053; 82805; 82948; 83735; 84100; 85025; 85610; 85730; 87324; 87449; 94799; 99284; J1630; J1815; J2185; J2405; J2470; J2765; J7030; J7050; J7799

== ENCOUNTER 2025-04-13 17:46 | Inpatient (IN) | payer MEDICAID ==
[~2025-04-13] VITALS: Ht 185.4 cm; Wt 76.2 kg
[~2025-04-13 17:46] MED LIST changes: +FEROSUL325 MG PO; +ULTRAM 50MG50 MG PO
[2025-04-13 18:59] VITALS: TEMP 98.6
[2025-04-13 19:52] LABS: BASOPHILS % 0.7 % (0.0-1.0); EOSINOPHILS % 0.6 % (0.0-6.0); LYMPHOCYTES % 9.1 % (18.0-39.1); MONOCYTES % 8.9 % (4.4-11.3); NEUTROPHILS % 80.0 % (38.7-80.0); RED CELL DISTRIBUTION WIDTH 15.5 % (11.7-14.4)
[2025-04-13 20:17] LABS: EST GLOMERULAR FILTRATION RATE 40.0 ML/MIN (>=60)
[2025-04-13 20:19] LABS: LEUKOCYTE ESTERASE ,URINE MODERATE (NEGATIVE); PROTEIN,URINE DIPSTICK 1+ (NEGATIVE)
[2025-04-13 20:20] LABS: URINE UROBILINOGEN 0.2 mg/dL (0.2 - 1)
[2025-04-13 20:37] LABS: WBC,URINE (MAN) 21-50 /HPF (0-5)
[2025-04-13 20:38] LABS: YEAST,URINE MANY
[2025-04-13] MEDS: MEROPENEM 1 GM in SODIUM CHLORIDE 0.9% 100 ML IV ONE (23:27)
[2025-04-13] MEDS: ONDANSETRON HCL INJ 2MG/ML 2ML 2 MG/ML VIAL IV PRN (23:27)
[2025-04-13] MEDS: SODIUM CHLORIDE 0.9% 1000ML 1,000 ML IV ONE (23:28)
[2025-04-13 23:34] VITALS: PULSE 81; RESP 20
[2025-04-14] VITALS (11 sets, daily range): BP systolic 91–133; BP diastolic 61–89; PULSE 85–96; RESP 16–20; TEMP 98.1–98.6; O2SAT 95–100
[2025-04-14] MEDS ORDERED: PREGABALIN150 MG PO (00:59)
[2025-04-14] MEDS: MEROPENEM 1 GM in SODIUM CHLORIDE 0.9% 100 ML IV SCH (06:08)
[2025-04-14] MEDS ORDERED: DEXTROSE 50% SYRINGE 50 ML IV PRN (07:30)
[2025-04-14] MEDS: INSULIN LISPRO 100 UNIT/1 ML 3ML VIAL SQ SCH (08:10)
[2025-04-14 08:18] LABS: BASOPHILS % 0.6 % (0.0-1.0); EOSINOPHILS % 0.6 % (0.0-6.0); LYMPHOCYTES % 8.2 % (18.0-39.1); MONOCYTES % 9.7 % (4.4-11.3); NEUTROPHILS % 80.2 % (38.7-80.0); RED CELL DISTRIBUTION WIDTH 15.3 % (11.7-14.4)
[2025-04-14 08:45] LABS: EST GLOMERULAR FILTRATION RATE 44.0 ML/MIN (>=60)
[2025-04-14] MEDS: SUCRALFATE 1 GM/10 ML SUSP PO PRN (23:09)
[2025-04-14] MEDS: PANTOPRAZOLE SOD 40 MG TABEC PO SCH (23:09)
[2025-04-15] VITALS (7 sets, daily range): BP systolic 99–142; BP diastolic 57–96; PULSE 80–89; RESP 17–18; TEMP 97–99; O2SAT 93–100
[2025-04-15] MEDS: INSULIN GLARGINE 100 UNITS/ML VIAL SQ SCH (21:49)
[2025-04-16] VITALS (8 sets, daily range): BP systolic 90–131; BP diastolic 53–83; PULSE 85–95; RESP 16–18; TEMP 97.9–98.6; O2SAT 96–100
[2025-04-16] MEDS: PROMETHAZINE 25MG/ NS 50ML (IV) IV PRN (00:03)
[2025-04-16 08:41] LABS: BASOPHILS % 1.1 % (0.0-1.0); EOSINOPHILS % 0.8 % (0.0-6.0); LYMPHOCYTES % 13.1 % (18.0-39.1); MONOCYTES % 10.8 % (4.4-11.3); NEUTROPHILS % 73.6 % (38.7-80.0); RED CELL DISTRIBUTION WIDTH 15.2 % (11.7-14.4)
[2025-04-16 08:54] LABS: EST GLOMERULAR FILTRATION RATE 54.0 ML/MIN (>=60); PHOSPHORUS 2.0 MG/DL (2.3-4.7)
[2025-04-16] MEDS: INSULIN GLARGINE 100 UNITS/ML VIAL SQ SCH (09:16)
[2025-04-17] VITALS (10 sets, daily range): BP systolic 110–170; BP diastolic 59–79; PULSE 73–96; RESP 17–20; TEMP 98.2–98.7; O2SAT 95–100
[2025-04-18 03:23] VITALS: BP 97/70; PULSE 64; RESP 18; TEMP 98.1; O2SAT 100
[2025-04-18 08:11] VITALS: BP 112/68; PULSE 83; RESP 19; TEMP 98.2; O2SAT 99
[2025-04-18 08:28] VITALS: BP 112/68; PULSE 83; RESP 19; TEMP 98.2; O2SAT 99
== END 2025-04-18 13:17 | disposition home health service (06) | DRG 699 ==
LOC: ER 19:36 → ERHOLD 23:10 → MED/SURG3 23:46
PROVIDERS: ADMIT Internal Medicine; ATTEND Internal Medicine
DX: T83.511A Infection and inflammatory reaction due to indwelling urethral catheter, initial encounter (principal); N17.9 Acute kidney failure, unspecified; Z16.12 Extended spectrum beta lactamase (ESBL) resistance; N39.0 Urinary tract infection, site not specified; B96.1 Klebsiella pneumoniae [K. pneumoniae] as the cause of diseases classified elsewhere; G89.29 Other chronic pain; K31.84 Gastroparesis; N31.9 Neuromuscular dysfunction of bladder, unspecified; E11.65 Type 2 diabetes mellitus with hyperglycemia; E11.51 Type 2 diabetes mellitus with diabetic peripheral angiopathy without gangrene; E11.43 Type 2 diabetes mellitus with diabetic autonomic (poly)neuropathy; E11.22 Type 2 diabetes mellitus with diabetic chronic kidney disease; E87.8 Other disorders of electrolyte and fluid balance, not elsewhere classified; N18.30 Chronic kidney disease, stage 3 unspecified; D63.1 Anemia in chronic kidney disease; Z96.0 Presence of urogenital implants; I12.9 Hypertensive chronic kidney disease with stage 1 through stage 4 chronic kidney disease, or unspecified chronic kidney disease; Z89.431 Acquired absence of right foot; Z79.82 Long term (current) use of aspirin; Z79.4 Long term (current) use of insulin; Z86.73 Personal history of transient ischemic attack (TIA), and cerebral infarction without residual deficits
CPT/HCPCS: 36415; 76770; 80048; 80053; 81001; 82948; 83735; 84100; 85025; 87086; 87186; 94799; 99284; J2185; J2405; J2470; J2550; J7030; J7050